=== PATIENT | female | born 1965 | race Caucasian/White ===

== ENCOUNTER 2019-12-07 18:43 | Emergency (ER) | payer MEDICARE, MEDICAID ==
[2019-12-07] MEDS ORDERED: Sodium Chloride 0.9% 10 ML Syringe FLUSH PRN (19:29)
[2019-12-07] MEDS ORDERED: Sodium Chloride 0.9% 1,000 ML IV SCH (19:30)
[2019-12-07] MEDS ORDERED: Metoclopramide 10 MG/2 ML SDV IVPUSH ONE (19:31)
[2019-12-07] MEDS ORDERED: Meperidine PF 50 MG/ML Syringe IVPUSH ONE (19:33)
[2019-12-07] MEDS ORDERED: hydrOXYzine HCl 50 MG/ML SDV IM ONE (19:59)
--- NOTE | 2019-12-07 20:45 | EDM.PDOC ---
ED HPI GENERAL MEDICAL PROBLEM - General Chief Complaint: Headache Stated Complaint: MIGRAINE Time Seen by Provider: 12/07/19 19:05 Source of Information: Reports: Patient History Limitations: Reports: No Limitations - History of Present Illness INITIAL COMMENTS - FREE TEXT/NARRATIVE: Patient presented to the ED because of headache for 6 days which is throbbing behind her eyeball and yarsanism bilaterally. the pain is 9/10, and c/o nausea and vomiting. She did take her OTC medicines without any relief. There is no associated fever or stiff neck. Parietal Pain Score (Numeric/FACES): 7 ED ROS GENERAL - Review of Systems Review Of Systems: See Below Constitutional: Reports: No Symptoms HEENT: Reports: No Symptoms Respiratory: Reports: No Symptoms Cardiovascular: Reports: No Symptoms Endocrine: Reports: No Symptoms GI/Abdominal: Reports: No Symptoms : Reports: No Symptoms Musculoskeletal: Reports: No Symptoms Skin: Reports: No Symptoms Neurological: Reports: Headache Psychiatric: Reports: No Symptoms - Physical Exam Exam: See Below Exam Limited By: No Limitations General Appearance: Alert, No Apparent Distress Ears: Normal External Exam, Normal Canal Nose: Normal Inspection, Normal Mucosa Throat/Mouth: Normal Inspection, Normal Lips, Normal Teeth Head Exam: Atraumatic, Normocephalic Neck: Normal Inspection, Supple, Non-Tender, Full Range of Motion Respiratory/Chest: No Respiratory Distress, Lungs Clear, Normal Breath Sounds Cardiovascular: Normal Peripheral Pulses, Regular Rate, Rhythm, No Edema, No Gallop GI/Abdominal: Normal Bowel Sounds, Soft, Non-Tender, No Organomegaly Rectal (Female) Exam: Normal Exam, Normal Rectal Tone Back Exam: Normal Inspection, Full Range of Motion Extremities: Normal Inspection, Normal Range of Motion, Non-Tender Psychiatric: Normal Affect, Normal Mood Skin Exam: Warm Course - Vital Signs Text/Narrative:: NS 1 L bolus Reglan 10 mg IV x1 Vistaril 50 mg IM x1 Demerol 50 mg IV x1 Last Recorded V/S: Last Vital Signs Temp 36.8 C 12/07/19 21:38 Pulse 91 12/07/19 21:38 Resp 18 12/07/19 21:38 BP 125/78 12/07/19 21:38 Pulse Ox 100 12/07/19 21:38 - Orders/Labs/Meds Orders: Active Orders 24 hr Category Date Time Status Saline Lock Insert [OM.PC] Routine Oth 12/07/19 19:29 Ordered Labs: Laboratory Tests 12/07/19 12/07/19 Range/Units 19:59 19:59 WBC 9.3 (4.5-12.0) X10-3/uL RBC 5.28 H (3.23-5.20) x10(6)uL Hgb 15.8 H (11.5-15.5) g/dL Hct 46.1 (30.0-51.3) % MCV 87.4 (80-96) fL MCH 30.0 (27.7-33.6) pg MCHC 34.2 (32.2-35.4) g/dL RDW 13.1 (11.5-15.5) % Plt Count 210 (125-369) X10(3)uL MPV 8.2 (7.4-10.4) fL Neut % (Auto) 68.1 (46-82) % Lymph % (Auto) 24.0 (13-37) % Will % (Auto) 6.6 (4-12) % Eos % (Auto) 1 (1.0-5.0) % Baso % (Auto) 1 (0-2) % Neut # (Auto) 6.4 (1.6-8.3) # Lymph # (Auto) 2.2 (0.6-5.0) # Will # (Auto) 0.6 (0.0-1.3) # Eos # (Auto) 0.0 (0.0-0.8) # Baso # (Auto) 0.1 (0.0-0.2) # Sodium 142 (135-145) mmol/L Potassium 4.1 (3.5-5.3) mmol/L Chloride 104 (100-110) mmol/L Carbon Dioxide 30 (21-32) mmol/L BUN 16 (7-18) mg/dL Creatinine 1.0 (0.55-1.02) mg/dL Est Cr Clr Drug Dosing TNP Estimated GFR (MDRD) 57 L (>60) BUN/Creatinine Ratio 16.0 (9-20) Glucose 98 (80-116) mg/dL Calcium 8.8 (8.6-10.2) mg/dL Meds: Medications Discontinued Medications Generic Name Dose Route Start Last Admin Trade Name Freq PRN Reason Stop Dose Admin Hydroxyzine HCl 50 mg 12/07/19 19:59 12/07/19 20:23 Vistaril IM 12/07/19 20:00 50 mg ONETIME ONE Administration Sodium Chloride 1,000 mls @ 999 mls/hr 12/07/19 19:30 12/07/19 20:22 Normal Saline IV 999 mls/hr ASDIRECTED MINISTERIO Administration Meperidine HCl 50 mg 12/07/19 19:33 12/07/19 20:22 Demerol IVPUSH 12/07/19 19:34 50 mg ONETIME ONE Administration Metoclopramide HCl 10 mg 12/07/19 19:31 12/07/19 20:22 Reglan IVPUSH 12/07/19 19:32 10 mg ONETIME ONE Administration Sodium Chloride 10 ml 12/07/19 19:29 12/07/19 20:27 Saline Flush FLUSH 10 ml ASDIRECTED PRN Administration Keep Vein Open Departure - Departure Time of Disposition: 20:45 Disposition: Home, Self-Care 01 Condition: Good Clinical Impression: Migraine - Discharge Information Instructions: Migraine Headache, [id number] Referrals: Karo Arguello NP [Primary Care Provider] - Forms: ED Department Discharge Additional Instructions: please read discahrge instructions on migraine continue your present medications follow up as needed Sepsis Event Note - Evaluation Sepsis Screening Result: No Definite Risk - Focused Exam Date Exam was Performed: 12/08/19 Time Exam was Performed: 17:29 - My Orders Last 24 Hours: My Active Orders 12/07/19 19:29 Saline Lock Insert [OM.PC] Routine - Assessment/Plan Last 24 Hours: My Active Orders 12/07/19 19:29 Saline Lock Insert [OM.PC] Routine
== END 2019-12-07 21:40 | disposition home or self-care (01) ==
LOC: FB.ED 18:43
DX: G43.909 Migraine, unspecified, not intractable, without status migrainosus (principal)
CPT/HCPCS: 36415; 80048; 85025; 96361; 96372; 96374; 96375; 99284; J2175; J2765; J3410; J7030

== ENCOUNTER 2019-12-21 21:57 | Emergency (ER) | payer MEDICARE, MEDICAID ==
[2019-12-21] MEDS ORDERED: Sodium Chloride 0.9% 10 ML Syringe FLUSH PRN (22:47)
[2019-12-21] MEDS ORDERED: Ondansetron 4 MG/2 ML SDV IVPUSH ONE (22:51)
[2019-12-21] MEDS ORDERED: HYDROmorphone 2 MG/ML SDV IVPUSH ONE (22:51)
[2019-12-21] MEDS ORDERED: Sodium Chloride 0.9% 1,000 ML IV SCH (23:00)
[2019-12-21] MEDS ORDERED: Iopamidol 755 Mg/ML 100 ML Bottle IV ONE (23:26)
[2019-12-22] MEDS ORDERED: hydrOXYzine HCl 50 MG/ML SDV IM ONE (00:13)
[2019-12-22] MEDS: Metoclopramide 10 MG/2 ML SDV IVPUSH ONE ×2 (00:13→00:14)
--- NOTE | 2019-12-22 01:16 | EDM.PDOC ---
ED HPI GENERAL MEDICAL PROBLEM - General Chief Complaint: Abdominal Pain Stated Complaint: PAIN Time Seen by Provider: 12/21/19 22:00 Source of Information: Reports: Patient History Limitations: Reports: No Limitations - History of Present Illness INITIAL COMMENTS - FREE TEXT/NARRATIVE: Patient presented to the ED because of abdominal pain over the RLQ and RUQ which started at 1430 today. The pain is sharp and cramping,10/10, with asso.ciated nausea but no vomiting. There is no associated fever,chills, or cough and cold symptoms R upper abdomen radiating into back & epigastric area Pain Score (Numeric/FACES): 10 - Related Data Allergies Allergy/AdvReac Type Severity Reaction Status Date / Time aspirin Allergy Airway Verified 12/21/19 22:10 Tightness codeine Allergy Airway Verified 12/21/19 22:10 Tightness methadone Allergy Hallucinati Verified 12/21/19 22:10 ons morphine Allergy Airway Verified 12/21/19 22:10 Tightness NSAIDS (Non-Steroidal Allergy Airway Verified 12/21/19 22:10 Anti-Inflamma Tightness Penicillins Allergy Airway Verified 12/21/19 22:10 Tightness theophylline Allergy Nausea Verified 12/21/19 22:10 Home Meds: Home Meds ALPRAZolam [Alprazolam] 0.5 mg TID 12/21/19 [History] Chlorhexidine Gluconate 15 ml BID 12/21/19 [History] FLUoxetine HCl [Prozac] 20 mg PO DAILY 12/21/19 [History] Furosemide [Lasix] 40 mg PO BID 12/21/19 [History] Gabapentin [Neurontin] 600 mg PO TID 12/21/19 [History] Linaclotide [Linzess] 173 mcg DAILY 12/21/19 [History] Omeprazole Magnesium [Prilosec Otc] 20 mg PO DAILY 12/21/19 [History] Ondansetron [Zofran ODT] 4 mg BID PRN 12/21/19 [History] Rivaroxaban [Xarelto] 20 mg BEDTIME 12/21/19 [History] Varenicline [Chantix] 1 mg PO BIDPC 12/21/19 [History] atorvaSTATin [Lipitor] 20 mg PO BEDTIME 12/21/19 [History] buPROPion HCL [Wellbutrin Xl] 150 mg PO DAILY 12/21/19 [History] traZODone 200 mg PO BEDTIME 12/21/19 [History] Past Medical History Cardiovascular History: Reports: Blood Clots/VTE/DVT, Hypertension Respiratory History: Reports: Asthma, Bronchitis, Recurrent, COPD, PE, Sleep Apnea Other Respiratory History: Uses O2 3L/NC when sitting up, 4L/NC when lying down. Does not use CPAP/bipap. Gastrointestinal History: Reports: Cholelithiasis, Chronic Constipation, GERD WILLOW ANALYST History: Reports: Endometrial Ablation, Endometriosis, Other WILLOW ANALYST History: [id number] Musculoskeletal History: Reports: Arthritis, Back Pain, Chronic, Fracture, Fibromyalgia, Neck Pain, Chronic, Osteoarthritis, Other (See Below) Other Musculoskeletal History: Hx bilat wrist fx, fx arm, DJD, R ankle fx Neurological History: Reports: Migraines Psychiatric History: Reports: Anxiety, Bipolar, Depression, PTSD, Schizophrenia , Suicidal Ideation, Other (See Below) Other Psychiatric History: borderline personality disorder, hx cutting Endocrine/Metabolic History: Reports: Obesity/BMI 30+ Hematologic History: Reports: Blood Transfusion(s) - Infectious Disease History Infectious Disease History: Reports: Chicken Pox, Measles, Mumps, Shingles - Past Surgical History HEENT Surgical History: Reports: Oral Surgery GI Surgical History: Reports: Bariatric Procedure, Cholecystectomy, Colonoscopy , EGD Other GI Surgeries/Procedures: gastric sleeve 2013 Female Surgical History: Reports: Section Other Female Surgeries/Procedures: CS x 1 Musculoskeletal Surgical History: Reports: Knee Replacement, ORIF Other Musculoskeletal Surgeries/Procedures:: bilat partial knee replacements, R ankle surgery Social & Family History - Family History Family Medical History: Noncontributory - Tobacco Use Smoking Status *Q: Former Smoker Years of Tobacco use: 30 Used Tobacco, but Quit: Yes Month/Year Tobacco Last Used: 2019 - Caffeine Use Caffeine Use: Reports: Coffee, Tea - Recreational Drug Use Recreational Drug Use: Yes Recreational Drug Type: Reports: Methamphetamine Other Recreational Drug Type: Hx meth abuse, quit 16yrs ago. Recreational Drug Use Frequency: Not Used In Over 6 Months ED ROS GENERAL - Review of Systems Review Of Systems: See Below Constitutional: Reports: No Symptoms HEENT: Reports: No Symptoms Respiratory: Reports: No Symptoms Cardiovascular: Reports: No Symptoms Endocrine: Reports: No Symptoms GI/Abdominal: Reports: Abdominal Pain, Constipation, Nausea. Denies: Vomiting : Reports: No Symptoms Musculoskeletal: Reports: No Symptoms Skin: Reports: No Symptoms Neurological: Reports: No Symptoms Psychiatric: Reports: No Symptoms ED EXAM, GI/ABD - Physical Exam Exam: See Below Exam Limited By: No Limitations General Appearance: Alert, No Apparent Distress Ears: Normal External Exam, Normal Canal Nose: Normal Inspection, Normal Mucosa Throat/Mouth: Normal Inspection, Normal Lips Head: Atraumatic, Normocephalic Neck: Normal Inspection, Supple, Non-Tender Respiratory/Chest: No Respiratory Distress, Lungs Clear, Normal Breath Sounds Cardiovascular: Normal Peripheral Pulses, Regular Rate, Rhythm, No Edema, No Gallop GI/Abdominal Exam: Normal Bowel Sounds, Soft, Other (tendeness over the RLQ/RUQ) Back Exam: Normal Inspection, Full Range of Motion. No: CVA Tenderness (R) Course - Vital Signs Text/Narrative:: Labs/CT abd/pelvis was discussed with patient and verbalized full understanding NS 1 L bolus Zofran 4 mg IV x1 Vistaril 50 mg IM x [address] Jj Jordan Recorded V/S: Last Vital Signs Temp 36.7 C 12/21/19 21:57 Pulse 77 12/21/19 21:57 Resp 20 12/21/19 21:57 BP 124/91 H 12/21/19 21:57 Pulse Ox 99 12/21/19 21:57 - Orders/Labs/Meds Orders: Active Orders 24 hr Category Date Time Status Abdomen Pelvis w Cont [CT] Stat Exams 12/21/19 22:47 Taken UA W/MICROSCOPIC [URIN] Stat Lab 12/21/19 22:47 Ordered Sodium Chloride 0.9% [Normal Saline] 1,000 ml Med 12/21/19 23:00 Active IV ASDIRECTED Sodium Chloride 0.9% [Saline Flush] Med 12/21/19 22:47 Active 10 ml FLUSH ASDIRECTED PRN Saline Lock Insert [OM.PC] Routine Oth 12/21/19 22:47 Ordered Medication Orders Sodium Chloride (Normal Saline) 1,000 mls @ 999 mls/hr IV ASDIRECTED MINISTERIO Last Admin: 12/21/19 23:25 Dose: 999 mls/hr Sodium Chloride (Saline Flush) 10 ml FLUSH ASDIRECTED PRN PRN Reason: Keep Vein Open Last Admin: 12/21/19 23:00 Dose: 10 ml Labs: Laboratory Tests 12/21/19 12/21/19 12/21/19 Range/Units 23:00 23:00 23:00 WBC 10.7 (4.5-12.0) X10-3/uL RBC 5.27 H (3.23-5.20) x10(6)uL Hgb 15.9 H (11.5-15.5) g/dL Hct 46.4 (30.0-51.3) % MCV 88.1 (80-96) fL MCH 30.3 (27.7-33.6) pg MCHC 34.3 (32.2-35.4) g/dL RDW 13.4 (11.5-15.5) % Plt Count 196 (125-369) X10(3)uL MPV 9.0 (7.4-10.4) fL Neut % (Auto) 78.4 (46-82) % Lymph % (Auto) 13.7 (13-37) % [place] % (Auto) 5.8 (4-12) % Eos % (Auto) 0 L (1.0-5.0) % Baso % (Auto) 2 (0-2) % Neut # (Auto) 8.4 H (1.6-8.3) # Lymph # (Auto) 1.5 (0.6-5.0) # [place] # (Auto) 0.6 (0.0-1.3) # Eos # (Auto) 0.0 (0.0-0.8) # Baso # (Auto) 0.2 (0.0-0.2) # Sodium 141 (135-145) mmol/L Potassium 4.6 (3.5-5.3) mmol/L Chloride 103 (100-110) mmol/L Carbon Dioxide 29 (21-32) mmol/L BUN 12 (7-18) mg/dL Creatinine 0.9 (0.55-1.02) mg/dL Est Cr Clr Drug Dosing 72.94 mL/min Estimated GFR (MDRD) > 60 (>60) BUN/Creatinine Ratio 13.3 (9-20) Glucose 117 H (80-116) mg/dL Calcium 9.4 (8.6-10.2) mg/dL Total Bilirubin 0.5 (0.1-1.3) mg/dL AST 29 H (5-25) IU/L ALT 24 (12-36) U/L Alkaline Phosphatase 104 (56-112) IU/L Total Protein 7.7 (6.0-8.0) g/dL Albumin 3.7 (3.5-5.2) g/dL Globulin 4.0 g/dL Albumin/Globulin Ratio 0.9 Amylase 35 (25-115) U/L Lipase 83 (73-393) U/L Meds: Medications Generic Name Dose Route Start Last Admin Trade Name Freq PRN Reason Stop Dose Admin Sodium Chloride 1,000 mls @ 999 mls/hr 12/21/19 23:00 12/21/19 23:25 Normal Saline IV 999 mls/hr ASDIRECTED MINISTERIO Administration Sodium Chloride 10 ml 12/21/19 22:47 12/21/19 23:00 Saline Flush FLUSH 10 ml ASDIRECTED PRN Administration Keep Vein Open Discontinued Medications Generic Name Dose Route Start Last Admin Trade Name Freq PRN Reason Stop Dose Admin Hydromorphone HCl 2 mg 12/21/19 22:51 12/21/19 23:28 Dilaudid IVPUSH 12/21/19 22:52 2 mg ONETIME ONE Administration Hydroxyzine HCl 50 mg 12/22/19 00:13 12/22/19 00:22 Vistaril IM 12/22/19 00:14 50 mg ONETIME ONE Administration Iopamidol 100 ml 12/21/19 23:26 12/21/19 23:46 Isovue-370 (76%) IV 12/21/19 23:27 100 ml ONETIME ONE Administration Metoclopramide HCl 10 mg 12/21/19 23:58 12/22/19 00:14 Reglan IVPUSH 12/21/19 23:59 Not Given ONETIME ONE Ondansetron HCl 4 mg 12/21/19 22:51 12/21/19 23:25 Zofran IVPUSH 12/21/19 22:52 4 mg ONETIME ONE Administration Departure - Departure Time of Disposition: :20 Disposition: DC/Tfer to Acute Hospital 02 Condition: Good Clinical Impression: Acute appendicitis, Constipation - Discharge Information Referrals: Karo Arguello NP [Primary Care Provider] - Sepsis Event Note - Evaluation Sepsis Screening Result: No Definite Risk - Focused Exam Vital Signs: Vital Signs Temp Pulse Resp BP Pulse Ox 12/21/19 21:57 36.7 C 77 20 124/91 H 99 Date Exam was Performed: 12/22/19 Time Exam was Performed: 01:11 - My Orders Last 24 Hours: My Active Orders 12/21/19 22:47 Abdomen Pelvis w Cont [CT] Stat UA W/MICROSCOPIC [URIN] Stat Sodium Chloride 0.9% [Saline Flush] 10 ml FLUSH ASDIRECTED PRN Saline Lock Insert [OM.PC] Routine 12/21/19 23:00 Sodium Chloride 0.9% [Normal Saline] 1,000 ml IV ASDIRECTED - Assessment/Plan Last 24 Hours: My Active Orders 12/21/19 22:47 Abdomen Pelvis w Cont [CT] Stat UA W/MICROSCOPIC [URIN] Stat Sodium Chloride 0.9% [Saline Flush] 10 ml FLUSH ASDIRECTED PRN Saline Lock Insert [OM.PC] Routine 12/21/19 23:00 Sodium Chloride 0.9% [Normal Saline] 1,000 ml IV ASDIRECTED
[2019-12-22] MEDS ORDERED: HYDROmorphone 2 MG/ML SDV IVPUSH ONE (01:44)
[2019-12-22] MEDS ORDERED: Sodium Chloride 0.9% 1,000 ML IV ONE (01:48)
== END 2019-12-22 02:24 ==
LOC: FB.ED 21:57
DX: K35.80 Unspecified acute appendicitis (principal); K59.00 Constipation, unspecified; J44.9 Chronic obstructive pulmonary disease, unspecified; K21.9 Gastro-esophageal reflux disease without esophagitis; F31.9 Bipolar disorder, unspecified; F41.9 Anxiety disorder, unspecified; F20.9 Schizophrenia, unspecified; E66.9 Obesity, unspecified; Z68.43 Body mass index [BMI] 50.0-59.9, adult; Z88.6 Allergy status to analgesic agent; Z88.5 Allergy status to narcotic agent; Z88.0 Allergy status to penicillin; Z88.8 Allergy status to other drugs, medicaments and biological substances; Z86.711 Personal history of pulmonary embolism; Z79.01 Long term (current) use of anticoagulants; Z79.899 Other long term (current) drug therapy; Z87.891 Personal history of nicotine dependence
CPT/HCPCS: 36415; 74177; 80053; 81001; 82150; 83690; 85025; 96372; 96374; 96375; 96376; 99285-25; J1170; J2405; J3410; J7030; Q9967

== ENCOUNTER 2020-04-04 12:03 | Inpatient (IN) | payer MEDICARE, MEDICAID ==
[2020-04-04] MEDS ORDERED: Ondansetron 4 MG Tab.DIS PO PRN (13:37)
[2020-04-04] MEDS ORDERED: Albuterol/Ipratropium 3.0-0.5 MG/3 ML Neb Soln NEB PRN ×2 (13:48→14:31)
[2020-04-04] MEDS ORDERED: oxyCODONE 5 MG Tab PO PRN (13:48)
[2020-04-04] MEDS ORDERED: Albuterol 8 GM Inhaler INH PRN ×2 (13:50→14:31)
[2020-04-04] MEDS ORDERED: LORazepam 0.5 MG Tab PO PRN (13:51)
[2020-04-04] MEDS ORDERED: Gabapentin 300 MG Cap PO SCH (14:00)
[2020-04-04] MEDS: HYDROmorphone 2 MG Tab PO PRN ×2 (15:21→21:44)
--- NOTE | 2020-04-04 16:32 | HP ---
ADMISSION DATE: 04/04/2020 CHIEF COMPLAINT: Admission for rehab post right Achilles tendon rupture and repair. HISTORY OF PRESENT ILLNESS: Ms. Storey is a 54-year-old resident of [place], [place], who had a traumatic fracture of her right ankle foot in 2006 with ORIF including lateral plate and screws and medial screws. She subsequently had the lateral hardware removed, the plate and screws removed laterally, but the medial screws remained in. Her Achilles lengthening procedure apparently failed and she has had a rupture which she recently had repaired now. She was discharged from acute care and is admitted to swing bed at [facility] today for recuperation from her Achilles tendon repair. The patient states she was told she needs to be nonweightbearing on the right lower extremity for 4 to 6 weeks. PAST MEDICAL HISTORY: Extensive includes the ankle fracture ORIF and current ankle procedures as above. She also states she is status post bilateral partial knee arthroplasties, , 3 and para 3 with 2 normal deliveries, cholecystectomy, endometrial ablation procedure, gastric sleeve procedure. She states she developed DVT and PE in 2010 after a gastric sleeve procedure. She also had blood transfusions during that time. She states she is on lifelong anticoagulation now. She has no history of jaundice or hepatitis. She does have a recorded history of bipolar affective disorder, chronic long-standing asthma since childhood, COPD, hyperlipidemia, obesity, anxiety, depression, migraines, GERD, and chronic constipation. MEDICATIONS: See list, extensive and gone through carefully with the pharmacist today. ALLERGIES: Include aspirin, codeine, methadone, morphine, NSAIDs, penicillin, theophylline. She also states that oxycodone has caused her bumps and a cough. HABITS: 2 to 3 cigarettes per day on the average. No alcohol for 14 years. She says she was a meth user and has been free of meth for 16 years. REVIEW OF SYSTEMS: GENERAL: No seizures, syncope. HEENT: No recent change in hearing or vision, although she does report a plugged feeling in her ears. No sore throat, URI. CHEST: She has a chronic cough and wheezing from her asthma. No chest pain or palpitations. ABDOMEN: No abdominal pain. EXTREMITIES: No chronic ankle edema. No skin rash. PHYSICAL EXAMINATION: GENERAL: She is alert and currently comfortable sitting. She has a bulky dressing in place in the right lower extremity. VITAL SIGNS: Pending. SKIN: Anicteric. Warm and dry. Right lower extremity not unwrapped, but no other rash is noted. HEENT: Shows TMs to be clear. Pupils are equal and reactive. Oropharynx is clear. LUNGS: Clear to the bases with no wheezing. HEART: Regular without murmur or gallop. ABDOMEN: Obese, soft, nontender. EXTREMITIES: Show the wrap in the right lower extremity. She has slightly dusky but pink toes peaking out from her JOSELO wrap on the right lower extremity and good dorsalis pedis pulse on the left lower extremity. ASSESSMENT: 1. Postop right Achilles tendon rupture repair. 2. Extensive polypharmacy. 3. Asthma. 4. History of deep venous thrombosis and pulmonary embolism, on lifelong anticoagulation. 5. Schizoaffective disorder. 6. Chronic constipation. 7. Obesity, status post failed gastric sleeve. 8. Migraine disorder. 9. Hyperlipidemia. 10.Cigarette smoker. PLAN: We will enroll her in rehab and strengthening, and if she is able to ambulate with a walker and nonweightbearing right lower extremity as requested, she will be discharged to her home again. /[id number] ANDRE/KINSEY
[2020-04-04] MEDS: Acetaminophen 500 MG Tab PO PRN (19:40)
[2020-04-04] MEDS ORDERED: Famotidine 20 MG Tab PO SCH (21:00)
[2020-04-04] MEDS ORDERED: Chlorhexidine Gluconate 0.12% Oral Rinse 473 ML Bottle PO SCH (21:00)
[2020-04-04] MEDS ORDERED: BUSPIRONE HCL 30 MG PO SCH (21:00)
[2020-04-04] MEDS ORDERED: Diltiazem 120 MG Cap.CD PO SCH (21:00)
[2020-04-04] MEDS: OXcarbazepine 300 MG Tab PO SCH (21:02)
[2020-04-04] MEDS: traZODone 100 MG Tab PO SCH (21:02)
[2020-04-04] MEDS: Diltiazem 120 MG Cap.CD PO SCH (21:02)
[2020-04-04] MEDS: QUEtiapine 100 MG Tab PO SCH (21:02)
[2020-04-04] MEDS: busPIRone 15 MG Tab PO SCH (21:03)
[2020-04-04] MEDS: buPROPion 150 MG Tab.ER PO SCH (21:03)
[2020-04-04] MEDS: Potassium Chloride 10 MEQ Tab.ER PO SCH (21:03)
[2020-04-04] MEDS: atorvaSTATin 20 MG Tab PO SCH (21:04)
[2020-04-04] MEDS: Famotidine 20 MG Tab PO SCH (21:04)
[2020-04-04] MEDS: hydrOXYzine HCl 25 MG Tab PO PRN (21:04)
[2020-04-04] MEDS: Gabapentin 600 MG Tab PO SCH (21:04)
[2020-04-05] MEDS: HYDROmorphone 2 MG Tab PO PRN ×3 (07:29→19:53)
[2020-04-05] MEDS: Acetaminophen 500 MG Tab PO PRN ×3 (07:35→19:54)
[2020-04-05] MEDS: Furosemide 40 MG Tab PO SCH ×2 (07:36→14:52)
[2020-04-05] MEDS ORDERED: Non-Formulary Medication 1 Each (Omeprazole Magnesium [Prilosec Otc] 20 MG) PO SCH (09:00)
[2020-04-05] MEDS ORDERED: LINACLOTIDE PO SCH (09:00)
[2020-04-05] MEDS: busPIRone 15 MG Tab PO SCH ×2 (10:42→21:16)
[2020-04-05] MEDS: Loratadine 10 MG Tab PO SCH (10:43)
[2020-04-05] MEDS: Famotidine 20 MG Tab PO SCH ×2 (10:43→21:17)
[2020-04-05] MEDS: Gabapentin 600 MG Tab PO SCH ×3 (10:43→21:21)
[2020-04-05] MEDS: Potassium Chloride 10 MEQ Tab.ER PO SCH ×2 (10:43→21:16)
[2020-04-05] MEDS: ALPRAZolam 1 MG Tab PO SCH (10:44)
[2020-04-05] MEDS: FLUoxetine 20 MG Cap PO SCH (10:44)
[2020-04-05] MEDS: Diclofenac Sodium 1% Gel 100 GM Tube TOP SCH ×2 (10:49→21:19)
[2020-04-05] MEDS: buPROPion 150 MG Tab.ER PO SCH (21:16)
[2020-04-05] MEDS: OXcarbazepine 300 MG Tab PO SCH (21:16)
[2020-04-05] MEDS: Diltiazem 120 MG Cap.CD PO SCH (21:17)
[2020-04-05] MEDS: traZODone 100 MG Tab PO SCH (21:17)
[2020-04-05] MEDS: QUEtiapine 100 MG Tab PO SCH (21:17)
[2020-04-05] MEDS: atorvaSTATin 20 MG Tab PO SCH (21:19)
[2020-04-06] MEDS: busPIRone 15 MG Tab PO SCH ×2 (08:09→21:07)
[2020-04-06] MEDS: Potassium Chloride 10 MEQ Tab.ER PO SCH ×2 (08:10→21:07)
[2020-04-06] MEDS: Loratadine 10 MG Tab PO SCH (08:10)
[2020-04-06] MEDS: Famotidine 20 MG Tab PO SCH ×2 (08:11→21:09)
[2020-04-06] MEDS: FLUoxetine 20 MG Cap PO SCH (08:12)
[2020-04-06] MEDS: Diclofenac Sodium 1% Gel 100 GM Tube TOP SCH ×2 (08:13→21:09)
[2020-04-06] MEDS: ALPRAZolam 1 MG Tab PO SCH (08:17)
[2020-04-06] MEDS: Gabapentin 600 MG Tab PO SCH ×3 (08:17→21:07)
[2020-04-06] MEDS: Furosemide 40 MG Tab PO SCH ×2 (08:18→13:36)
[2020-04-06] MEDS: Acetaminophen 500 MG Tab PO PRN ×2 (12:18→21:22)
[2020-04-06] MEDS: HYDROmorphone 2 MG Tab PO PRN ×2 (12:19→18:32)
[2020-04-06] MEDS: hydrOXYzine HCl 25 MG Tab PO PRN (16:24)
[2020-04-06] MEDS: OXcarbazepine 300 MG Tab PO SCH (21:06)
[2020-04-06] MEDS: QUEtiapine 100 MG Tab PO SCH (21:07)
[2020-04-06] MEDS: atorvaSTATin 20 MG Tab PO SCH (21:07)
[2020-04-06] MEDS: traZODone 100 MG Tab PO SCH (21:07)
[2020-04-06] MEDS: buPROPion 150 MG Tab.ER PO SCH (21:07)
[2020-04-06] MEDS: Diltiazem 120 MG Cap.CD PO SCH (21:08)
[2020-04-06] MEDS: Formoterol/Mometasone 100-5 MCG 8.8 GM Inhaler IH SCH (21:09)
[2020-04-07] MEDS: HYDROmorphone 2 MG Tab PO PRN ×4 (01:59→20:38)
[2020-04-07] MEDS: busPIRone 15 MG Tab PO SCH ×2 (09:14→20:35)
[2020-04-07] MEDS: Furosemide 40 MG Tab PO SCH ×2 (09:14→13:19)
[2020-04-07] MEDS: Loratadine 10 MG Tab PO SCH (09:15)
[2020-04-07] MEDS: Formoterol/Mometasone 100-5 MCG 8.8 GM Inhaler IH SCH ×2 (09:15→20:46)
[2020-04-07] MEDS: Potassium Chloride 10 MEQ Tab.ER PO SCH ×2 (09:15→20:47)
[2020-04-07] MEDS: FLUoxetine 20 MG Cap PO SCH (09:18)
[2020-04-07] MEDS: Gabapentin 600 MG Tab PO SCH ×3 (09:18→20:38)
[2020-04-07] MEDS: Famotidine 20 MG Tab PO SCH ×2 (09:18→20:37)
[2020-04-07] MEDS: Diclofenac Sodium 1% Gel 100 GM Tube TOP SCH ×2 (09:19→20:41)
[2020-04-07] MEDS: ALPRAZolam 1 MG Tab PO SCH (09:36)
[2020-04-07] MEDS: Acetaminophen 500 MG Tab PO SCH ×2 (13:20→20:37)
--- NOTE | 2020-04-07 18:32 | PN ---
DATE SEEN: 04/07/2020 SUBJECTIVE: Alvina Storey is a 54-year-old female in swing bed. Therapy on board. Admitted, 04/04/2020. She had a complicated left ankle injury dating back 2006, and a more recent surgical repair of her Achilles tendon. Pain an issue. Pre therapy, post therapy. Allergies are discussed and appropriate. Extremity of concern, right extremity. Reviewed the medications, timing appropriate. OBJECTIVE: VITAL SIGNS: 36.7, 75, 125/82, 20, 93. GENERAL: Appears comfortable. Speech was fluent and a bit forced. NECK: Benign. Thyroid small. CHEST: Clear in all lung prieto. HEART: No ectopy or murmur. ABDOMEN: Benign. EXTREMITIES: Right lower extremity revealed a posterior splint with large dressing in place. ASSESSMENT: Achilles tendon repair. PLAN: We will add Tylenol 1000 mg t.i.d., Dilaudid 2 to 4 q.6 hours, pain control an issue. Therapy on board. /[id number] YOKASTA/KINSEY
[2020-04-07] MEDS: traZODone 100 MG Tab PO SCH (20:36)
[2020-04-07] MEDS: buPROPion 150 MG Tab.ER PO SCH (20:40)
[2020-04-07] MEDS: QUEtiapine 100 MG Tab PO SCH (20:45)
[2020-04-07] MEDS: atorvaSTATin 20 MG Tab PO SCH (20:46)
[2020-04-07] MEDS: OXcarbazepine 300 MG Tab PO SCH (20:48)
[2020-04-07] MEDS: Diltiazem 120 MG Cap.CD PO SCH (20:49)
[2020-04-08] MEDS: Formoterol/Mometasone 100-5 MCG 8.8 GM Inhaler IH SCH ×2 (08:54→20:01)
[2020-04-08] MEDS: Furosemide 40 MG Tab PO SCH ×2 (08:57→14:25)
[2020-04-08] MEDS: busPIRone 15 MG Tab PO SCH ×2 (08:57→19:59)
[2020-04-08] MEDS: Loratadine 10 MG Tab PO SCH (08:58)
[2020-04-08] MEDS: Potassium Chloride 10 MEQ Tab.ER PO SCH ×2 (08:58→20:01)
[2020-04-08] MEDS: Famotidine 20 MG Tab PO SCH ×2 (08:58→20:02)
[2020-04-08] MEDS: Acetaminophen 500 MG Tab PO SCH ×3 (08:59→20:04)
[2020-04-08] MEDS: FLUoxetine 20 MG Cap PO SCH (08:59)
[2020-04-08] MEDS: Diclofenac Sodium 1% Gel 100 GM Tube TOP SCH ×2 (08:59→20:04)
[2020-04-08] MEDS: Gabapentin 600 MG Tab PO SCH ×3 (09:05→20:02)
[2020-04-08] MEDS: HYDROmorphone 2 MG Tab PO PRN ×3 (09:05→21:45)
[2020-04-08] MEDS: ALPRAZolam 1 MG Tab PO SCH (09:05)
[2020-04-08] MEDS: atorvaSTATin 20 MG Tab PO SCH (20:01)
[2020-04-08] MEDS: traZODone 100 MG Tab PO SCH (20:03)
[2020-04-08] MEDS: QUEtiapine 100 MG Tab PO SCH (20:03)
[2020-04-08] MEDS: OXcarbazepine 300 MG Tab PO SCH (20:04)
[2020-04-08] MEDS: buPROPion 150 MG Tab.ER PO SCH (20:05)
[2020-04-08] MEDS: Diltiazem 120 MG Cap.CD PO SCH (20:06)
[2020-04-09] MEDS: Furosemide 40 MG Tab PO SCH ×2 (09:32→13:56)
[2020-04-09] MEDS: busPIRone 15 MG Tab PO SCH ×2 (09:32→20:57)
[2020-04-09] MEDS: Loratadine 10 MG Tab PO SCH (09:33)
[2020-04-09] MEDS: Formoterol/Mometasone 100-5 MCG 8.8 GM Inhaler IH SCH ×2 (09:34→20:51)
[2020-04-09] MEDS: Potassium Chloride 10 MEQ Tab.ER PO SCH ×2 (09:34→20:55)
[2020-04-09] MEDS: Famotidine 20 MG Tab PO SCH ×2 (09:35→20:56)
[2020-04-09] MEDS: FLUoxetine 20 MG Cap PO SCH (09:35)
[2020-04-09] MEDS: Acetaminophen 500 MG Tab PO SCH ×3 (09:36→20:56)
[2020-04-09] MEDS: Diclofenac Sodium 1% Gel 100 GM Tube TOP SCH ×2 (09:36→20:52)
[2020-04-09] MEDS: Gabapentin 600 MG Tab PO SCH ×3 (09:42→20:54)
[2020-04-09] MEDS: ALPRAZolam 1 MG Tab PO SCH (09:43)
[2020-04-09] MEDS: hydrOXYzine HCl 25 MG Tab PO PRN (11:00)
[2020-04-09] MEDS: HYDROmorphone 2 MG Tab PO PRN ×3 (11:02→22:53)
--- NOTE | 2020-04-09 12:40 | PN ---
DATE SEEN: 04/08/2020 SUBJECTIVE: Alvina Storey is a 54-year-old female in swing bed. Had a complicated right Achilles tendon repair. Pain appears to be better controlled at q.4 intervals. Appetite returns. Stooling and voiding comfortably. OBJECTIVE: VITAL SIGNS: 36.2, 116/65, 16, 97% on room air. GENERAL: Comfortable. Speech was fluent. CHEST: Clear in all lung prieto. HEART: No ectopy or murmur. ABDOMEN: Benign. EXTREMITIES: The right lower leg dressing intact. Toes were warm. ASSESSMENT: Surgical repair, rehab, Achilles tendon repair. PLAN: Medications, care, and treatment appropriate. Pain medications on board. Followup appointment, Podiatry, 04/17/2020. /[id number] YOKASTA/KINSEY
--- NOTE | 2020-04-09 12:58 | PN ---
DATE SEEN: 04/09/2020 SUBJECTIVE: Alvina Storey is a 54-year-old female in swing bed. Doing well with pain control. She has been active. Comfortable with progress and well being. OBJECTIVE: VITAL SIGNS: Stable. GENERAL: Appears comfortable. EXTREMITIES: Dressing and brace in place in left lower extremity. Good warm toes. ASSESSMENT: Rehab Achilles tendon repair. PLAN: Medications, care, and pain control. Therapy in place. /[id number] YOKASTA/KINSEY
[2020-04-09] MEDS: atorvaSTATin 20 MG Tab PO SCH (20:54)
[2020-04-09] MEDS: traZODone 100 MG Tab PO SCH (20:54)
[2020-04-09] MEDS: OXcarbazepine 300 MG Tab PO SCH (20:55)
[2020-04-09] MEDS: QUEtiapine 100 MG Tab PO SCH (20:57)
[2020-04-09] MEDS: buPROPion 150 MG Tab.ER PO SCH (21:00)
[2020-04-09] MEDS: Diltiazem 120 MG Cap.CD PO SCH (21:06)
[2020-04-10] MEDS: Furosemide 40 MG Tab PO SCH ×2 (08:54→14:27)
[2020-04-10] MEDS: FLUoxetine 20 MG Cap PO SCH (09:01)
[2020-04-10] MEDS: Acetaminophen 500 MG Tab PO SCH ×3 (09:01→21:01)
[2020-04-10] MEDS: Loratadine 10 MG Tab PO SCH (09:01)
[2020-04-10] MEDS: busPIRone 15 MG Tab PO SCH ×2 (09:02→21:00)
[2020-04-10] MEDS: Potassium Chloride 10 MEQ Tab.ER PO SCH ×2 (09:02→21:00)
[2020-04-10] MEDS: Famotidine 20 MG Tab PO SCH ×2 (09:02→21:01)
[2020-04-10] MEDS: Diclofenac Sodium 1% Gel 100 GM Tube TOP SCH ×2 (09:03→21:02)
[2020-04-10] MEDS: Formoterol/Mometasone 100-5 MCG 8.8 GM Inhaler IH SCH ×2 (09:03→20:55)
[2020-04-10] MEDS: Gabapentin 600 MG Tab PO SCH ×3 (10:53→21:01)
[2020-04-10] MEDS: ALPRAZolam 1 MG Tab PO SCH (10:53)
[2020-04-10] MEDS: HYDROmorphone 2 MG Tab PO PRN ×3 (11:56→21:09)
--- NOTE | 2020-04-10 12:07 | PN ---
DATE SEEN: 04/10/2020 SUBJECTIVE: Alvina Storey is a 54-year-old female in swing bed, plan until mid-April. Complicated Achilles tendon repair. Doing well. Pain primarily with PT. Dilaudid provides reasonable benefit. MEDICATIONS: Reviewed and appropriate. OBJECTIVE: VITAL SIGNS: 36.5, 119/75, 18, and 95. GENERAL: Appears comfortable. Speech was fluent. CHEST: Clear all lung prieto. HEART: No ectopy or murmur. ABDOMEN: Benign. Wound dressed accordingly. Achilles tendon repair. PLAN: Medications, care, and treatment appropriate. /[id number] YOKASTA/KINSEY
[2020-04-10] MEDS: buPROPion 150 MG Tab.ER PO SCH (21:00)
[2020-04-10] MEDS: Diltiazem 120 MG Cap.CD PO SCH (21:00)
[2020-04-10] MEDS: QUEtiapine 100 MG Tab PO SCH (21:01)
[2020-04-10] MEDS: atorvaSTATin 20 MG Tab PO SCH (21:01)
[2020-04-10] MEDS: OXcarbazepine 300 MG Tab PO SCH (21:01)
[2020-04-10] MEDS: traZODone 100 MG Tab PO SCH (21:01)
[2020-04-11] MEDS: HYDROmorphone 2 MG Tab PO PRN ×4 (04:39→21:58)
[2020-04-11] MEDS: Acetaminophen 500 MG Tab PO SCH ×3 (09:07→20:14)
[2020-04-11] MEDS: Gabapentin 600 MG Tab PO SCH ×3 (09:07→20:11)
[2020-04-11] MEDS: Potassium Chloride 10 MEQ Tab.ER PO SCH ×2 (09:07→20:10)
[2020-04-11] MEDS: Furosemide 40 MG Tab PO SCH ×2 (09:07→13:51)
[2020-04-11] MEDS: ALPRAZolam 1 MG Tab PO SCH (09:07)
[2020-04-11] MEDS: Loratadine 10 MG Tab PO SCH (09:08)
[2020-04-11] MEDS: Diclofenac Sodium 1% Gel 100 GM Tube TOP SCH ×2 (09:08→20:14)
[2020-04-11] MEDS: FLUoxetine 20 MG Cap PO SCH (09:08)
[2020-04-11] MEDS: Famotidine 20 MG Tab PO SCH ×2 (09:08→20:11)
[2020-04-11] MEDS: Formoterol/Mometasone 100-5 MCG 8.8 GM Inhaler IH SCH ×2 (09:08→20:10)
[2020-04-11] MEDS: busPIRone 15 MG Tab PO SCH ×2 (09:08→20:08)
--- NOTE | 2020-04-11 15:20 | PN ---
DATE SEEN: 04/11/2020 Alvina Storey is a 54-year-old female in swing bed. Therapy onboard. Nonweightbearing. Left Achilles tendon repair. Ortho referral upcoming, planned 04/17. On exam, appears comfortable. No complaints. Dressing and casting material in place. Right Achilles tendon repair. PLAN: Therapy onboard. /[id number] YOKASTA/KINSEY
[2020-04-11] MEDS: Diltiazem 120 MG Cap.CD PO SCH (20:08)
[2020-04-11] MEDS: atorvaSTATin 20 MG Tab PO SCH (20:11)
[2020-04-11] MEDS: OXcarbazepine 300 MG Tab PO SCH (20:13)
[2020-04-11] MEDS: QUEtiapine 100 MG Tab PO SCH (20:13)
[2020-04-11] MEDS: traZODone 100 MG Tab PO SCH (20:13)
[2020-04-11] MEDS: buPROPion 150 MG Tab.ER PO SCH (20:15)
[2020-04-12] MEDS: HYDROmorphone 2 MG Tab PO PRN ×3 (08:32→21:07)
[2020-04-12] MEDS: Gabapentin 600 MG Tab PO SCH ×3 (08:33→21:03)
[2020-04-12] MEDS: ALPRAZolam 1 MG Tab PO SCH (08:33)
[2020-04-12] MEDS: busPIRone 15 MG Tab PO SCH ×2 (08:35→21:00)
[2020-04-12] MEDS: Acetaminophen 500 MG Tab PO SCH ×3 (08:35→21:05)
[2020-04-12] MEDS: Furosemide 40 MG Tab PO SCH ×2 (08:35→13:38)
[2020-04-12] MEDS: Loratadine 10 MG Tab PO SCH (08:36)
[2020-04-12] MEDS: Potassium Chloride 10 MEQ Tab.ER PO SCH ×2 (08:36→21:02)
[2020-04-12] MEDS: Famotidine 20 MG Tab PO SCH ×2 (08:36→21:03)
[2020-04-12] MEDS: FLUoxetine 20 MG Cap PO SCH (08:36)
[2020-04-12] MEDS: Formoterol/Mometasone 100-5 MCG 8.8 GM Inhaler IH SCH ×2 (08:37→21:02)
--- NOTE | 2020-04-12 12:10 | PN ---
DATE SEEN: 04/12/2020 Alvina Storey is a 54-year-old female in today for ongoing care. Nonweightbearing to the right Achilles tendon repair. Doing well. Pain is controlled. Overdid therapy yesterday. Planned visit [facility], surgical visit on 04/07/2020. No complicating issues. Vital signs were stable. Medications reviewed and appropriate. Pain appears to be controlled. /[id number] YOKASTA/KINSEY
[2020-04-12] MEDS: Diclofenac Sodium 1% Gel 100 GM Tube TOP SCH ×2 (13:37→21:06)
[2020-04-12] MEDS: Diltiazem 120 MG Cap.CD PO SCH (21:01)
[2020-04-12] MEDS: atorvaSTATin 20 MG Tab PO SCH (21:02)
[2020-04-12] MEDS: traZODone 100 MG Tab PO SCH (21:04)
[2020-04-12] MEDS: QUEtiapine 100 MG Tab PO SCH (21:04)
[2020-04-12] MEDS: OXcarbazepine 300 MG Tab PO SCH (21:04)
[2020-04-12] MEDS: buPROPion 150 MG Tab.ER PO SCH (21:05)
[2020-04-13] MEDS: HYDROmorphone 2 MG Tab PO PRN ×3 (08:21→21:29)
[2020-04-13] MEDS ORDERED: Clotrimazole 1% Crm 30 GM Tube TOP SCH (09:00)
[2020-04-13] MEDS: busPIRone 15 MG Tab PO SCH ×2 (09:28→21:30)
[2020-04-13] MEDS: Furosemide 40 MG Tab PO SCH ×2 (09:28→14:19)
[2020-04-13] MEDS: FLUoxetine 20 MG Cap PO SCH (09:29)
[2020-04-13] MEDS: Loratadine 10 MG Tab PO SCH (09:29)
[2020-04-13] MEDS: Gabapentin 600 MG Tab PO SCH ×3 (09:29→21:28)
[2020-04-13] MEDS: Acetaminophen 500 MG Tab PO SCH ×3 (09:30→21:40)
[2020-04-13] MEDS: Potassium Chloride 10 MEQ Tab.ER PO SCH ×2 (09:30→21:35)
[2020-04-13] MEDS: Diclofenac Sodium 1% Gel 100 GM Tube TOP SCH ×2 (09:30→21:29)
[2020-04-13] MEDS: Famotidine 20 MG Tab PO SCH ×2 (09:30→21:36)
[2020-04-13] MEDS: Formoterol/Mometasone 100-5 MCG 8.8 GM Inhaler IH SCH ×2 (09:32→21:17)
[2020-04-13] MEDS: ALPRAZolam 1 MG Tab PO SCH (09:34)
--- NOTE | 2020-04-13 10:35 | PN ---
DATE SEEN: 04/13/2020 SUBJECTIVE: Alvina Storey is a 54-year-old female, swing bed, on April 07. Podiatry, ankle surgery followup April 17. Pain has been controlled. Therapy is going well, main issues. Nonambulatory. No particular complaints or concerns. Vital signs are stable. Brace is in place. Toes were warm after perfusion. Right Achilles tendon repair. PLAN: On board for therapy. /[id number] /KINSEY
[2020-04-13] MEDS: Clotrimazole 1% Crm 15 GM Tube TOP SCH ×2 (14:19→21:35)
[2020-04-13] MEDS: buPROPion 150 MG Tab.ER PO SCH (21:30)
[2020-04-13] MEDS: atorvaSTATin 20 MG Tab PO SCH (21:30)
[2020-04-13] MEDS: QUEtiapine 100 MG Tab PO SCH (21:34)
[2020-04-13] MEDS: Diltiazem 120 MG Cap.CD PO SCH (21:35)
[2020-04-13] MEDS: traZODone 100 MG Tab PO SCH (21:36)
[2020-04-13] MEDS: OXcarbazepine 300 MG Tab PO SCH (21:36)
[2020-04-14] MEDS: HYDROmorphone 2 MG Tab PO PRN ×3 (09:37→21:54)
[2020-04-14] MEDS: ALPRAZolam 1 MG Tab PO SCH (09:38)
[2020-04-14] MEDS: busPIRone 15 MG Tab PO SCH ×2 (09:39→20:17)
[2020-04-14] MEDS: Loratadine 10 MG Tab PO SCH (09:39)
[2020-04-14] MEDS: Furosemide 40 MG Tab PO SCH ×2 (09:39→14:26)
[2020-04-14] MEDS: Potassium Chloride 10 MEQ Tab.ER PO SCH ×2 (09:40→20:20)
[2020-04-14] MEDS: Clotrimazole 1% Crm 15 GM Tube TOP SCH ×3 (09:40→21:20)
[2020-04-14] MEDS: Famotidine 20 MG Tab PO SCH ×2 (09:40→20:21)
[2020-04-14] MEDS: Formoterol/Mometasone 100-5 MCG 8.8 GM Inhaler IH SCH ×2 (09:40→20:19)
[2020-04-14] MEDS: FLUoxetine 20 MG Cap PO SCH (09:40)
[2020-04-14] MEDS: Acetaminophen 500 MG Tab PO SCH ×3 (09:41→20:17)
[2020-04-14] MEDS: Diclofenac Sodium 1% Gel 100 GM Tube TOP SCH ×2 (09:41→20:19)
[2020-04-14] MEDS: Gabapentin 600 MG Tab PO SCH ×3 (09:55→20:17)
--- NOTE | 2020-04-14 17:00 | PCM.PN ---
- General Info Date of Service: 04/14/20 Subjective Update: Alvina states she has been taking Dilaudid prior to therapies and at bedtime, today her pain is worse. She does admit that her PTSD, anxiety and depression are worse since her injury and being restricted to swing bed, no visitors, can't see her dog. She was having Zoom visits with her psychologist weekly prior to being hospitalized but has not seen [facility] for awhile, no recent medication changes. She has schedule Ativan in am and as needed along with Buspar 30 mg tid. Meri Jose, discharge planning did note that she had a Zoom visit with psychology last week but will make sure that this is scheduled weekly. She is non-weightbearing, has appt with podiatry on Friday. She states she feels comfortable taking Dilaudid here because she is supervised but had history of drug abuse in remote past, has been clean for 16 yrs, doesn't want to go home with narcotics. Had [place] last month, had itching and wheezing with it. History of COPD/Asthma, has lot of sputum production in the mornings, states she has incentive spirometry at home but not flutter device. Last bowel movement yesterday, drinks prune juice. Functional Status: Reports: Tolerating Diet - Patient Data Vitals - Most Recent: Last Vital Signs Temp 97.6 F 04/14/20 09:00 Pulse 69 04/14/20 09:00 Resp 16 04/14/20 09:00 BP 127/85 04/14/20 09:00 Pulse Ox 95 04/14/20 13:00 Weight - Most Recent: 367 lb 4.8 oz Med Orders - Current: Current Medications Acetaminophen (Tylenol Extra Strength) 500 - 1,000 mg PO Q6H PRN PRN Reason: Pain Last Admin: 04/06/20 21:22 Dose: 1,000 mg Documented by: Acetaminophen (Tylenol Extra Strength) 1,000 mg PO TID [facility] Last Admin: 04/14/20 14:26 Dose: 1,000 mg Documented by: Albuterol (Ventolin Hfa) 0 gm INH Q6H PRN PRN Reason: sob Albuterol/Ipratropium (Duoneb 3.0-0.5 Mg/3 Ml) 3 ml NEB Q6H PRN PRN Reason: Wheezing Alprazolam (Xanax) 1 mg PO DAILY [facility] Last Admin: 04/14/20 09:38 Dose: 1 mg Documented by: Alprazolam (Xanax) 0.5 mg PO TID PRN PRN Reason: ANXIETY Atorvastatin Calcium (Lipitor) 20 mg PO BEDTIME [facility] Last Admin: 04/13/20 21:30 Dose: 20 mg Documented by: Bupropion HCl (Wellbutrin Xl) 150 mg PO BEDTIME [facility] Last Admin: 04/13/20 21:30 Dose: 150 mg Documented by: Buspirone HCl (Buspar) 30 mg PO BID [facility] Last Admin: 04/14/20 09:39 Dose: 30 mg Documented by: Clotrimazole (Clotrimazole 1%) 0 gm TOP BID [facility] Last Admin: 04/14/20 09:40 Dose: 1 applic Documented by: Diclofenac Sodium (Voltaren 1% Gel) 2 gm TOP BID [facility] Last Admin: 04/14/20 09:41 Dose: 2 gm Documented by: Diltiazem HCl (Cardizem Cd) 120 mg PO BEDTIME [facility] Last Admin: 04/13/20 21:35 Dose: 120 mg Documented by: Famotidine (Pepcid) 20 mg PO BID [facility] Last Admin: 04/14/20 09:40 Dose: 20 mg Documented by: Fluoxetine HCl (Prozac) 40 mg PO DAILY [facility] Furosemide (Lasix) 40 mg PO BIDDIURETIC [facility] Last Admin: 04/14/20 14:26 Dose: 40 mg Documented by: Gabapentin (Neurontin) 600 mg PO TID [facility] Last Admin: 04/14/20 14:26 Dose: 600 mg Documented by: Hydromorphone HCl (Dilaudid) 4 mg PO Q6H PRN PRN Reason: Pain Last Admin: 04/14/20 15:21 Dose: 4 mg Documented by: Hydromorphone HCl (Dilaudid) 2 mg PO Q6H PRN PRN Reason: Pain Last Admin: 04/11/20 04:39 Dose: 2 mg Documented by: Hydroxyzine HCl (Atarax) 50 mg PO Q4H PRN PRN Reason: Nausea Last Admin: 04/09/20 11:00 Dose: 50 mg Documented by: Loratadine (Claritin) 10 mg PO DAILY [facility] Last Admin: 04/14/20 09:39 Dose: 10 mg Documented by: Mometasone Furoate/Formoterol Fumar (Dulera 100-5 Mcg) 2 puff IH BID [facility] Last Admin: 04/14/20 09:40 Dose: 2 puff Documented by: Oxcarbazepine (Trileptal) 600 mg PO BEDTIME [facility] Last Admin: 04/13/20 21:36 Dose: 600 mg Documented by: Potassium Chloride (Klor-Con 10) 10 meq PO BID [facility] Last Admin: 04/14/20 09:40 Dose: 10 meq Documented by: Quetiapine Fumarate (Seroquel) 200 mg PO BEDTIME [facility] Last Admin: 04/13/20 21:34 Dose: 200 mg Documented by: Rivaroxaban (Xarelto) 20 mg PO BEDTIME [facility] Last Admin: 04/13/20 21:37 Dose: 20 mg Documented by: Senna/Docusate Sodium (Senna Plus) 1 tab PO BID [facility] Last Admin: 04/14/20 09:40 Dose: 1 tab Documented by: Trazodone HCl (Trazodone) 200 mg PO BEDTIME [facility] Last Admin: 04/13/20 21:36 Dose: 200 mg Documented by: Varenicline (Chantix) 1 mg PO BID [facility] Last Admin: 04/14/20 09:39 Dose: 1 mg Documented by: Discontinued Medications Chlorhexidine Gluconate (Peridex 0.12% Rinse) 15 ml PO BID [facility] Fluoxetine HCl (Prozac) 20 mg PO DAILY [facility] Last Admin: 04/14/20 09:40 Dose: 20 mg Documented by: Ondansetron HCl (Zofran Odt) 4 mg PO BID PRN PRN Reason: Nausea Oxycodone HCl (Oxycodone) 5 mg PO Q6H PRN PRN Reason: Pain Senna/Docusate Sodium (Senna Plus) 1 tab PO BID PRN PRN Reason: Constipation Last Admin: 04/04/20 21:04 Dose: 1 tab Documented by: Varenicline (Chantix) 1 mg PO BIDPC [facility] Last Admin: 04/04/20 19:45 Dose: Not Given Documented by: - Exam General: Alert, Oriented, Cooperative, No Acute Distress Lungs: Clear to Auscultation, Normal Respiratory Effort Cardiovascular: Regular Rate, Regular Rhythm GI/Abdominal Exam: Normal Bowel Sounds, Soft, Non-Tender, No Distention Extremities: Other (cast on right foot.) Psy/Mental Status: Alert, Labile Mood, Anxious, Depressed. No: Normal Affect, Hallucinations Sepsis Event Note - Evaluation Sepsis Screening Result: No Definite Risk - Focused Exam Vital Signs: Vital Signs Temp Pulse Resp BP Pulse Ox Pulse Ox 04/14/20 13:00 95 04/14/20 09:00 97.6 F 69 16 127/85 93 L - Problem List & Annotations (1) Achilles rupture, right SNOMED Code(s): 94071630766126576 Code(s): S86.011A - STRAIN OF RIGHT ACHILLES TENDON, INITIAL ENCOUNTER Status: Acute Current Visit: Yes (2) S/P tendon repair SNOMED Code(s): 865927280, 894107865 Code(s): Z98.890 - OTHER SPECIFIED POSTPROCEDURAL STATES Status: Acute Current Visit: Yes (3) PTSD (post-traumatic stress disorder) SNOMED Code(s): 99849805 Code(s): F43.10 - POST-TRAUMATIC STRESS DISORDER, UNSPECIFIED Status: Acute Current Visit: Yes (4) Anxiety SNOMED Code(s): 17266161 Code(s): F41.9 - ANXIETY DISORDER, UNSPECIFIED Status: Acute Current Visit: Yes (5) Depression SNOMED Code(s): 16304331 Code(s): F32.9 - MAJOR DEPRESSIVE DISORDER, SINGLE EPISODE, UNSPECIFIED Status: Acute Current Visit: Yes - Problem List Review Problem List Initiated/Reviewed/Updated: Yes - My Orders Last 24 Hours: My Active Orders 04/15/20 09:00 FLUoxetine [PROzac] 40 mg PO DAILY - Plan Plan:: 1. Increase Prozac to 40 mg daily, will start weaning Dilaudid 4 mg to 2 mg next Friday/. Schedule Psychology Zoom visits weekly. 2. Non-weightbearing, continue PT/OT. 3. Flutter valve, q1wa. 4. Podiatry appt for Tuesday 04/17, will adjust treatments as needed.
[2020-04-14] MEDS: buPROPion 150 MG Tab.ER PO SCH (20:18)
[2020-04-14] MEDS: atorvaSTATin 20 MG Tab PO SCH (20:18)
[2020-04-14] MEDS: Diltiazem 120 MG Cap.CD PO SCH (20:18)
[2020-04-14] MEDS: OXcarbazepine 300 MG Tab PO SCH (20:20)
[2020-04-14] MEDS: traZODone 100 MG Tab PO SCH (20:21)
[2020-04-14] MEDS: QUEtiapine 100 MG Tab PO SCH (20:21)
[2020-04-15] MEDS ORDERED: FLUoxetine 20 MG Cap PO SCH (09:00)
[2020-04-15] MEDS: Furosemide 40 MG Tab PO SCH ×2 (09:38→13:11)
[2020-04-15] MEDS: Acetaminophen 500 MG Tab PO SCH ×3 (09:39→20:37)
[2020-04-15] MEDS: FLUoxetine 20 MG Cap PO SCH (09:40)
[2020-04-15] MEDS: Potassium Chloride 10 MEQ Tab.ER PO SCH ×2 (09:43→20:39)
[2020-04-15] MEDS: Famotidine 20 MG Tab PO SCH ×2 (09:44→20:37)
[2020-04-15] MEDS: busPIRone 15 MG Tab PO SCH ×2 (09:46→20:37)
[2020-04-15] MEDS: Loratadine 10 MG Tab PO SCH (09:47)
[2020-04-15] MEDS: Diclofenac Sodium 1% Gel 100 GM Tube TOP SCH ×2 (09:47→20:39)
[2020-04-15] MEDS: Formoterol/Mometasone 100-5 MCG 8.8 GM Inhaler IH SCH ×2 (09:48→20:39)
[2020-04-15] MEDS: HYDROmorphone 2 MG Tab PO PRN ×2 (10:00→18:38)
[2020-04-15] MEDS: ALPRAZolam 1 MG Tab PO SCH (10:01)
[2020-04-15] MEDS: Gabapentin 600 MG Tab PO SCH ×3 (10:01→20:37)
[2020-04-15] MEDS: Clotrimazole 1% Crm 15 GM Tube TOP SCH ×2 (13:11→20:41)
[2020-04-15] MEDS: traZODone 100 MG Tab PO SCH (20:37)
[2020-04-15] MEDS: QUEtiapine 100 MG Tab PO SCH (20:38)
[2020-04-15] MEDS: OXcarbazepine 300 MG Tab PO SCH (20:38)
[2020-04-15] MEDS: Diltiazem 120 MG Cap.CD PO SCH (20:38)
[2020-04-15] MEDS: atorvaSTATin 20 MG Tab PO SCH (20:38)
[2020-04-15] MEDS: buPROPion 150 MG Tab.ER PO SCH (20:39)
[2020-04-16] MEDS: busPIRone 15 MG Tab PO SCH ×2 (08:58→21:24)
[2020-04-16] MEDS: Furosemide 40 MG Tab PO SCH ×2 (08:58→13:32)
[2020-04-16] MEDS: Loratadine 10 MG Tab PO SCH (08:59)
[2020-04-16] MEDS: Clotrimazole 1% Crm 15 GM Tube TOP SCH ×2 (08:59→21:28)
[2020-04-16] MEDS: Famotidine 20 MG Tab PO SCH ×2 (09:00→21:25)
[2020-04-16] MEDS: Potassium Chloride 10 MEQ Tab.ER PO SCH ×2 (09:00→21:23)
[2020-04-16] MEDS: Formoterol/Mometasone 100-5 MCG 8.8 GM Inhaler IH SCH ×2 (09:00→21:25)
[2020-04-16] MEDS: Diclofenac Sodium 1% Gel 100 GM Tube TOP SCH ×2 (09:01→21:22)
[2020-04-16] MEDS: Acetaminophen 500 MG Tab PO SCH ×3 (09:01→21:22)
[2020-04-16] MEDS: FLUoxetine 20 MG Cap PO SCH (09:01)
[2020-04-16] MEDS: HYDROmorphone 2 MG Tab PO PRN ×3 (09:18→22:37)
[2020-04-16] MEDS: Gabapentin 600 MG Tab PO SCH ×3 (09:18→21:22)
[2020-04-16] MEDS: ALPRAZolam 1 MG Tab PO SCH (09:18)
[2020-04-16] MEDS: traZODone 100 MG Tab PO SCH (21:22)
[2020-04-16] MEDS: QUEtiapine 100 MG Tab PO SCH (21:23)
[2020-04-16] MEDS: buPROPion 150 MG Tab.ER PO SCH (21:24)
[2020-04-16] MEDS: Diltiazem 120 MG Cap.CD PO SCH (21:24)
[2020-04-16] MEDS: atorvaSTATin 20 MG Tab PO SCH (21:24)
[2020-04-16] MEDS: OXcarbazepine 300 MG Tab PO SCH (21:26)
[2020-04-17] MEDS: Furosemide 40 MG Tab PO SCH ×2 (08:16→13:55)
[2020-04-17] MEDS: FLUoxetine 20 MG Cap PO SCH (08:19)
[2020-04-17] MEDS: Potassium Chloride 10 MEQ Tab.ER PO SCH ×2 (08:20→20:56)
[2020-04-17] MEDS: Acetaminophen 500 MG Tab PO SCH ×3 (08:20→21:00)
[2020-04-17] MEDS: busPIRone 15 MG Tab PO SCH ×2 (08:20→20:53)
[2020-04-17] MEDS: Famotidine 20 MG Tab PO SCH ×2 (08:20→20:57)
[2020-04-17] MEDS: Loratadine 10 MG Tab PO SCH (08:20)
[2020-04-17] MEDS: Formoterol/Mometasone 100-5 MCG 8.8 GM Inhaler IH SCH ×2 (08:20→20:56)
[2020-04-17] MEDS: Diclofenac Sodium 1% Gel 100 GM Tube TOP SCH ×2 (08:21→21:00)
[2020-04-17] MEDS: Clotrimazole 1% Crm 15 GM Tube TOP SCH ×2 (08:21→20:55)
[2020-04-17] MEDS: ALPRAZolam 1 MG Tab PO SCH (08:27)
[2020-04-17] MEDS: Gabapentin 600 MG Tab PO SCH ×3 (08:27→20:57)
[2020-04-17] MEDS: HYDROmorphone 2 MG Tab PO PRN ×3 (08:27→21:02)
[2020-04-17] MEDS: Diltiazem 120 MG Cap.CD PO SCH (20:54)
[2020-04-17] MEDS: atorvaSTATin 20 MG Tab PO SCH (20:56)
[2020-04-17] MEDS: QUEtiapine 100 MG Tab PO SCH (20:58)
[2020-04-17] MEDS: traZODone 100 MG Tab PO SCH (20:59)
[2020-04-17] MEDS: OXcarbazepine 300 MG Tab PO SCH (20:59)
[2020-04-17] MEDS: buPROPion 150 MG Tab.ER PO SCH (21:01)
[2020-04-18] MEDS: FLUoxetine 20 MG Cap PO SCH (09:51)
[2020-04-18] MEDS: ALPRAZolam 1 MG Tab PO SCH (09:51)
[2020-04-18] MEDS: Gabapentin 600 MG Tab PO SCH ×3 (09:51→21:31)
[2020-04-18] MEDS: Famotidine 20 MG Tab PO SCH ×2 (09:52→21:37)
[2020-04-18] MEDS: Furosemide 40 MG Tab PO SCH ×2 (09:52→14:48)
[2020-04-18] MEDS: Acetaminophen 500 MG Tab PO SCH ×3 (09:52→21:32)
[2020-04-18] MEDS: HYDROmorphone 2 MG Tab PO PRN ×2 (09:52→21:40)
[2020-04-18] MEDS: Potassium Chloride 10 MEQ Tab.ER PO SCH ×2 (09:52→21:34)
[2020-04-18] MEDS: Loratadine 10 MG Tab PO SCH (09:52)
[2020-04-18] MEDS: Formoterol/Mometasone 100-5 MCG 8.8 GM Inhaler IH SCH ×2 (09:53→21:31)
[2020-04-18] MEDS: busPIRone 15 MG Tab PO SCH ×2 (09:53→21:36)
[2020-04-18] MEDS: Clotrimazole 1% Crm 15 GM Tube TOP SCH ×2 (09:53→21:39)
[2020-04-18] MEDS: Diclofenac Sodium 1% Gel 100 GM Tube TOP SCH ×2 (09:53→21:31)
[2020-04-18] MEDS: QUEtiapine 100 MG Tab PO SCH (21:32)
[2020-04-18] MEDS: traZODone 100 MG Tab PO SCH (21:34)
[2020-04-18] MEDS: buPROPion 150 MG Tab.ER PO SCH (21:35)
[2020-04-18] MEDS: atorvaSTATin 20 MG Tab PO SCH (21:35)
[2020-04-18] MEDS: Diltiazem 120 MG Cap.CD PO SCH (21:36)
[2020-04-18] MEDS: OXcarbazepine 300 MG Tab PO SCH (21:37)
--- OUTSIDE RECORDS SUMMARY | 2020-04-19 08:33 | XMSREPORT ---
:1965 Author Organization [facility] s Address [address] [place] [address] [address] [place] [id number] Care Team Providers Name Role Phone RADHA Arguello Primary Care Provider RADHA Arguello Attributed Provider Reason for Visit Auth/Cert (Routine) Status Reason Specialty Diagnoses / Referred By Referred To Procedures Contact Contact Continuity of Care Diagnoses Strain of right Achilles tendon, subsequent encounter Norbert Garrett Procedures RPR PRIME OPEN PERCUTANEOUS RUPTURED ACHILLES TENDON C, AYLAM [address] [place] [id number] Encounter Details Date Type Department Care Team Description 03/31/2020 - Hospital Encounter [facility] Gerry, Mily r upture, 04/04/2020 [facility] MSBing Fong DPM Achilles [address] [place] [address] [place], [place] [phone] [id number] [phone] Allergies Active Allergy Reactions Severity Noted Date Comments Aspirin Wheezing/Bronchospas High 03/03/2012 m (High) Codeine Wheezing/Bronchospas High 03/03/2012 m (High) Propoxyphene Hcl Hives (High), High 03/03/2012 Wheezing/Bronchospas m (High), Tachycardia Sumatriptan Nausea and Vomiting, 03/03/2012 Headache Methadone Other (Specify in 03/03/2012 hallucinat ions Comments) Morphine Sulfate Shortness of breath 03/03/2012 Swel ling for the neck Hydrocodone-Acetaminop Other (Specify in 03/27/2020 Feels like ants are hen Comments) crawling all ov er body Nsaids Hives (High), High 03/03/2012 Wheezing/Bronchospas m (High), Rash, Nausea and Vomiting, Diarrhea Penicillin Other (Specify in High 03/03/2012 Shock/unco nsciousness Comments) Adhesives Hives (High), Rash High 03/03/2012 Theophylline Nausea and Vomiting, 03/03/2012 Diarrhea Toradol Anaphylaxis (High) High 03/03/2012 Closing o f throat Tramadol Hcl Anaphylaxis (High), High 03/03/2012 Closing of throat Itching Ondansetron Hcl Itching 03/23/2015 Skin itches and chambers documented as of this encounter (statuses as of 04/04/2020) Medications Medication Sig Dispensed Refills Start Date End Date Status Oxygen therapy Inhale 3-4 L/min 0 Active orally. O2 therapy continuously. 3 L when sitting and 4 L when up walking. 3L at night. loratadine (CLARITIN) Take 1 tablet (10 0 04/04/2017 Active 10 mg tablet mg) by mouth 1 time per day Multiple Take 1 tablet by 30 tablet 0 07/23/2017 Ac tive Vitamins-Minerals mouth 2 times a (MULTIVITAL) tablet day magnesium 100 MG CAPS Take 1 tablet by 0 Active mouth 1 time per day calcium Take 1 tablet by 0 Act silvestre carbonate-vitamin D3 mouth 1 time a day 600 mg-400 unit tablet with breakfast traZODone (DESYREL) Take 2 tablets 180 tablet 0 08/30/2019 Active 100 mg (200 mg) by mouth tabletIndications: every night at Mood disorder (HCC) bedtime QUEtiapine fumarate Take 1 tablet (200 90 tablet 0 08/30/2019 Active (SEROQUEL-XR) 200 mg mg) by mouth 1 1 SR tablet (24 time per day hr)Indications: Mood disorder (HCC) cephalexin (KEFLEX) Take for capsules 4 capsule 3 08/30/2019 Active 500 mg by mouth one hour capsuleIndications: prior to dental Prophylactic measure work buPROPion (WELLBUTRIN Take 1 tablet (150 90 tablet 0 0 Active XL) 150 mg tablet (24 mg) by mouth 1 hr)Indications: Mood time per day disorder (HCC) Chlorhexidine Place 0.5 0 Active Gluconate (PERIDEX MT) teaspoonsful into mouth 2 times a day FLUoxetine (PROZAC) 20 Take 20 mg by 0 Active mg capsule mouth 1 time per day ALPRAZolam (XANAX) 0.5 Take 0.5 mg by 0 Active mg tablet mouth 3 times a day as needed for anxiety or nervousness ALPRAzolam (XANAX) 1 Take 1 mg by mouth 0 Active mg tablet 1 time per day rivaroxaban (XARELTO) Take 1 tablet (20 10 tablet 0 12/31/2019 Active 20 mg mg) by mouth every tabletIndications: night at bedtime History of Pulmonary Indications: Embolism History of Pulmonary Embolism furosemide (LASIX) 40 Take 1 tablet (40 180 tablet 1 0 Active mg tabletIndications: mg) by mouth two Bilateral leg edema times a day (in the morning and mid-afternoon). senna-docusate sodium Take 1 tablet by 60 tablet 4 12/31/2019 Active (SENOKOT-S;PERICOLACE) mouth 2 times a 8.6-50 MG day as needed for tabletIndications: constipation Constipation, unspecified constipation type potassium chloride Take 1 tablet (10 90 tablet 3 12/31/2019 Active (KLOR-CON M10) 10 MEQ mEq) by mouth 2 CR tabletIndications: times a day Hypokalemia linaclotide (LINZESS) Take 1 capsule 90 capsule 1 12/31/2019 Active 145 mcg (145 mcg) by mouth capsuleIndications: 1 time per day Constipation, unspecified constipation type famotidine (PEPCID) 20 Take 1 tablet (20 180 tablet 1 12/31/19 20 Active mg tabletIndications: mg) by mouth 2 Gastroesophageal times a day reflux disease without esophagitis dilTIAZem (CARDIZEM Take 1 capsule 90 capsule 1 12/31/2019 Active SR) 120 mg extended (120 mg) by mouth release 1 time a day in capsuleIndications: the evening Migraine with aura and without status migrainosus, not intractable budesonide-formoterol Inhale 2 puffs 3 Inhaler 4 12/31/2019 Active (SYMBICORT) 80-4.5 orally every night mcg/puff at bedtime Shake inhalerIndications: well before using. History of COPD, Rinse mouth after History of asthma use. atorvaSTATin (LIPITOR) Take 1 tablet (20 90 tablet 4 0 Active 20 mg mg) by mouth 1 1 tabletIndications: time per day Hyperlipidemia, unspecified hyperlipidemia type albuterol-ipratropium Inhale 1 unit-dose 1 box 4 0 Active (DUO-NEB) 2.5-0.5 mg/3 (3 mL) by 1 mL inhalation nebulization 4 solutionIndications: times a day as History of COPD, needed for History of asthma bronchospasm, shortness of breath or wheezing Additional information Patient taking differently: 1 unit-dose Nebulization Four times a day prn, bronchospasm, shortness of breath, wheezing, She uses bid scheduled AM & 1600 daily PLUS an additional bidprn if needed, Reported on 03/31/2020 5:53 PM albuterol HFA Inhale 1 1 Inhaler 4 12/31/2019 Activ e (PROVENTIL,PROAIR,VENTOLIN) 108 puff orally (90 Base) MCG/ACT 3 times a inhalerIndications: History of day Shake COPD, History of asthma well before using. baclofen (LIORESAL) 10 mg TAKE 1 60 tablet 5 02/16/2020 Active tabletIndications: Migraine TABLET TWICE with aura and without status DAILY migrainosus, not intractable NEEDED diclofenac (VOLTAREN) 1% Apply 2 g 150 g 12 02/16/2020 Active gelIndications: Arthralgia, topically 2 unspecified joint times a day OXcarbazepine (TRILEPTAL) 600 Take 600 mg 0 03/02/20 20 Active mg tablet by mouth 1 time a day in the evening gabapentin (NEURONTIN) 600 mg Take 1 270 tablet 1 0 11/ Active tabletIndications: Migraine tablet (600 22/ with aura and without status mg) by mouth 202 migrainosus, not intractable 3 times a 0 day LORazepam (ATIVAN) 0.5 mg One tablet 2 tablet 0 03/03/2020 Active tabletIndications: Brain lesion one hour prior to MRI, repeat x 1 prior if needed ondansetron (ZOFRAN ODT) 4 mg TAKE 1 60 tablet 1 03/22/2020 Active dispersible tabletIndications: TABLET BY Nausea MOUTH TWICE A DAY NEEDED FOR NAUSEA/VOMIT ING fluticasone-salmeterol (ADVAIR) Inhale 1 0 Active 100-50 mcg/dose discus puff orally 1 time per day Rinse mouth after use. Biotin 79454 MCG TABS Take 5 mg by 0 Active mouth 2 times a day busPIRone (BUSPAR) 30 mg tablet Take 30 mg 0 020 Active by mouth 2 times a day varenicline (CHANTIX) 1 mg Take 1 180 tablet 1 03/27/2020 0 8/ Active tabletIndications: History of tablet (09 01/ tobacco abuse mg) by mouth 202 2 times a 1 day vitamin D3, cholecalciferol, 25 Take 1 30 tablet 0 04/01/20 20 Active mcg (1000 unit) tablet tabletIndications: Rupture of (1,000 right Achilles tendon, Units) by subsequent encounter, mouth 1 time Post-operative state per day calcium citrate-vitamin D Take 1 0 04/01/2020 Active (CITRACAL + VIT D) 315 mg-250 tablet by unit tabletIndications: Rupture mouth 2 of right Achilles tendon, times a day subsequent encounter, with meals Post-operative state oxyCODONE (OXY-IR) 5 mg tablet Take 1 20 tablet 0 0 09/ Active (immediate release)Indications: tablet (5 01/ Rupture of right Achilles mg) by mouth 2 02 tendon, subsequent encounter, every 6 0 Post-operative state hours as needed for severe pain for up to 3 days acetaminophen (TYLENOL) 500 mg Take 1-2 40 tablet 0 0 Active tabletIndications: Rupture of tablets right Achilles tendon, (500-1,000 subsequent encounter, mg) by mouth Post-operative state every 6 hours as needed for moderate pain busPIRone (BUSPAR) 10 mg Take 2 360 tablet 0 08/30/2019 08/ Discontinued tabletIndications: Mood tablets (20 24/ (Phase of Care disorder (HCC) mg) by mouth 202 co mplete) 3 times a 0 day varenicline (CHANTIX) 1 mg Take 1 180 tablet 0 08/30/2019 0 8/ Discontinued tabletIndications: History of tablet (1 24/ (Reorder) tobacco abuse mg) by mouth 202 2 times a 0 day phentermine 30 MG Take 1 30 capsule 0 10/22/2019 08/ Discontinued capsuleIndications: Obesity, capsule (30 24/ (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, BMI 50 or higher (HCC) mg) by mouth 202 error) 1 time a day 0 in the morning acetaminophen (TYLENOL) 325 mg Take 2 30 tablet 0 0 08/ Discontinued tabletIndications: Acute tablets (650 29 / (Stop Taking at appendicitis mg) by mouth 202 Disc harge) every 6 0 hours as needed for mild pain HYDROcodone-acetaminophen Take 1-2 10 tablet 0 03/03/2020 08/ Discontinued (NORCO) 5-325 mg tablets by 24/ (D radha entry tabletIndications: Acute pain mouth 2 202 error) of left knee, Right foot pain, times a day 0 Acute pain of right shoulder as needed for severe pain HYDROcodone-acetaminophen Take 1 to 2 20 tablet 0 03/14/2020 0 8/ Discontinued (NORCO) 5-325 mg tablets by 24/ (D radha entry tabletIndications: Rupture of mouth Every 202 error) right Achilles tendon, 4 hours as 0 subsequent encounter needed for severe pain documented as of this encounter (statuses as of 04/04/2020) Active Problems Problem Noted Date Tendon rupture, Achilles 04/03/2020 History of pulmonary embolus (PE) 03/27/2020 Acute appendicitis 12/22/2019 Deliberate self-cutting 08/30/2019 Pain due to unicompartmental arthroplasty of knee 05/04 Arthritis of right ankle 09/15/2018 S/P bilateral unicompartmental knee replacement 2016 Borderline personality disorder 02/13/2017 Suicidal ideation 02/13/2017 PTSD (post-traumatic stress disorder) 02/13/2017 Homicidal ideation 02/13/2017 Chronic pain 09/10/2015 Calculus of gallbladder 04/29/2015 Pain medication agreement 03/30/2015 Overview: A pain management agreement is on file for this patient. Before prescribing any opioids for this patient, please contact the environmental health officer staff at [facility] [address] [place] [address] . Date Contract Signed: 03/30/2015 Provider managing pain: Ariela yusuf NP Pharmacy: [facility] [place] [address] . Tobacco dependence 08/28/2014 Dyspnea on exertion 08/28/2014 Dyslipidemia 08/28/2014 Claudication of lower extremity 08/28/2014 Mood disorder 06/18/2014 Anxiety state 06/18/2014 BMI 50.0-59.9, adult 12/03/2013 S/P laparoscopic sleeve gastrectomy 10/14/2013 Migraine 03/26/2012 History of COPD 09/12/2011 Pain in Soft Tissues of Limb 10/28/2005 Backache 10/28/2005 Drug dependence 10/28/2005 Myalgia and myositis Morbid obesity documented as of this encounter (statuses as of 04/04/2020) Resolved Problems Problem Noted Date Resolved Date Degenerative arthritis of knee, bilateral 03/11/2017 04/23/2017 Arthritis of knee, left 01/16/2016 04/23/2017 Arthritis of knee, right 01/16/2016 04/23/2017 Controlled substance agreement signed 01/25/2014 Overview: Patient signed an opioid therapy agreement with [facility] today. All controlled substances should come through the pain clinic only. The only exception would be for acute pain problems from s erious injury/surgery limited to a short time to cover increases in pain. Patient selected [facility] [place]. Patient's primary care physician is Dr. Roach ([phone]) [facility]. Contact pain clinic with an y questions. Note: I did notify Dr. Roach's cl inic regarding agreement as well as patient's pharmacy. Pt signed a new [facility] Agreement today, 12-29-14. documented as of this encounter (statuses as of 04/04/2020) Immunizations Name Administration Dates Next Due FLU VACCINE SINGLE DOSE 10/22/2019 0.5mL(6MO+Fluzone/Flulaval/Fluarix,3YR+Afluria) Influenza Vaccine 04/23/2013 Pneumococcal Polysaccharide PPSV23 08/26/2017, 08/04/2008 TDAP 05/05/2018 documented as of this encounter Social History Tobacco Use Types Packs/Day Years Used Date Former Smoker Cigarettes 0 39 04/23/2015 - 1 Smokeless Tobacco: Never Used Alcohol Use Drinks/Week oz/Week Comments No 0 Standard drinks or equivalent 0.0 stopped in 2004 Physical Activity Answer Date Recorded On average, how many days per week do you engage in moderate to 0 days 09/14/2019 strenuous exercise (like walking fast, running, jogging, dancing, swimming, biking, or other activities that cause a light or heavy sweat)? On average, how many minutes do you engage in exercise at th is 0 min 09/14/2019 level? Sexually Active Control Partners Comments Yes None Male Sex Assigned at Date Recorded Not on file Job Start Date Occupation Industry Not on file Not on file Not on file Travel History Travel Start Travel End No recent travel history available. documented as of this encounter Last Filed Vital Signs Vital Sign Reading Time Taken Comments Blood Pressure 148/86 04/04/2020 7:27 AM CDT Pulse 76 04/04/2020 7:27 AM CDT Temperature 36.6 C (97.8 F) 04/04/2020 7:27 AM CDT Respiratory Rate 16 04/04/2020 7:27 AM CDT Oxygen Saturation 95% 04/04/2020 7:27 AM CDT RA Inhaled Oxygen Concentration - - Weight 153 kg (337 lb 4.9 oz) 03/31/2020 5:47 AM CDT Height 175.3 cm (5' 9") 03/31/2020 5:47 AM CDT Body Mass Index 49.81 03/31/2020 5:47 AM CDT documented in this encounter Functional Status Functional Status Response Date of Assessment Is the person deaf or does he/she have serious difficulty No 03/31/2020 hearing? Is this person blind or does he/she have difficulty No 03/31/2020 seeing even when wearing glasses? Do you have difficulty with walking, balance, climbing Yes 03/31/2020 stairs, or had a fall in the last 3 months? Does the patient have difficulty dressing or bathing? No 03/31/2020 Because of a physical, mental, or emotional condition; No 03/31/2020 does this person have difficulty doing errands alone such as visiting a doctor's office or shopping? Cognitive Status Response Date of Assessment Because of a physical, mental, or emotional condition; No 03/31/2020 does this person have serious difficulty concentrating, remembering, or making decisions? documented as of this encounter Discharge Summaries Mallory Briones MD - 04/04/2020 11:15 AM CDT Hospital Discharge Summary Attending Physician: Norbert Garrett DPM Attending Physician Specialty: Foot and Ankle Surgery (Orthopedic Surgery) Admit Date: 03/31/2020 Discharge Date: 04/04/20 Primary Care Physician: Karo Arguello APRN-LAYLA Discharge Diagnoses Active Problems: Tendon rupture, Achilles Resolved Problems: * No resolved hospital problems. * Hospital Course 54 y/o F with rupture of R Achilles tendon had surgical repair with Dr. Garrett on 03/31/2020. Operative course was uncomplicated. Postop course notable for some difficult to control pain and limited mobility; she will require TCU placement for additional therapy and assistance. She had good oral intake and was voiding well. She continues on her home Xarelto due to history of DVT. She is discharged on her home medication regimen for her history of hyperlipidemia, COPD, anxiety/depression, migraines, and chronic LE edema. COVID screen negative prior to discharge to facility. Follow-up outpatient arranged with podiatry. LabTests Pending at Discharge Follow-Up Scheduled Contact information for follow-up [facility], [facility], [facility] [address] [address] Next Steps: Follow up Instructions: Staff will provide services and therapies as needed. Preliminary Discharge Medications This list of medications is preliminary and tentative. Please see the After Visit Summary for the final and accurate medication list. Discharge Medication List START taking these medications START: calcium citrate-vitamin D 315 mg-250 unit tablet Commonly known as: CITRACAL + VIT D Dose: 1 tablet Take 1 tablet by mouth 2 times a day with meals START: oxyCODONE 5 mg tablet (immediate release) Commonly known as: OXY-IR Dose: 5 mg Take 1 tablet (5 mg) by mouth every 6 hours as needed for severe pain for up to 3 days START: vitamin D3 (cholecalciferol) 25 mcg (1000 unit) tablet Dose: 1,000 Units Take 1 tablet (1,000 Units) by mouth 1 time per day CONTINUE taking these medications which have CHANGED CONTINUE: acetaminophen 500 mg tablet Commonly known as: TYLENOL Dose: 500-1,000 mg Take 1-2 tablets (500-1,000 mg) by mouth every 6 hours as needed for moderate pain What changed: medication strength how much to take reasons to take this CONTINUE: albuterol-ipratropium 2.5-0.5 mg/3 mL inhalation solution Commonly known as: DUO-NEB Dose: 1 unit-dose Inhale 1 unit-dose (3 mL) by nebulization 4 times a day as needed for bronchospasm, shortness of breath or wheezing What changed: additional instructions CONTINUE taking these medications which have NOT CHANGED CONTINUE: albuterol HFA 108 (90 Base) MCG/ACT inhaler Commonly known as: PROVENTIL,PROAIR,VENTOLIN Dose: 1 puff Inhale 1 puff orally 3 times a day Shake well before using. CONTINUE: * ALPRAZolam 0.5 mg tablet Commonly known as: XANAX Dose: 0.5 mg Take 0.5 mg by mouth 3 times a day as needed for anxiety or nervousness CONTINUE: * ALPRAzolam 1 mg tablet Commonly known as: XANAX Dose: 1 mg Take 1 mg by mouth 1 time per day CONTINUE: atorvaSTATin 20 mg tablet Commonly known as: LIPITOR Dose: 20 mg Take 1 tablet (20 mg) by mouth 1 time per day CONTINUE: baclofen 10 mg tablet Commonly known as: LIORESAL TAKE 1 TABLET TWICE DAILY NEEDED CONTINUE: Biotin 52939 MCG Tabs Dose: 5 mg Take 5 mg by mouth 2 times a day CONTINUE: budesonide-formoterol 80-4.5 mcg/puff inhaler Commonly known as: SYMBICORT Dose: 2 puff Inhale 2 puffs orally every night at bedtime Shake well before using. Rinse mouth after use. CONTINUE: buPROPion 150 mg tablet (24 hr) Commonly known as: WELLBUTRIN XL Dose: 150 mg Take 1 tablet (150 mg) by mouth 1 time per day CONTINUE: busPIRone 30 mg tablet Commonly known as: BUSPAR Dose: 30 mg Take 30 mg by mouth 2 times a day CONTINUE: calcium carbonate-vitamin D3 600 mg-400 unit tablet Dose: 1 tablet Take 1 tablet by mouth 1 time a day with breakfast CONTINUE: cephalexin 500 mg capsule Commonly known as: KEFLEX Take for capsules by mouth one hour prior to dental work CONTINUE: diclofenac 1% gel Commonly known as: VOLTAREN Dose: 2 g Apply 2 g topically 2 times a day CONTINUE: dilTIAZem 120 mg extended release capsule Commonly known as: CARDIZEM SR Dose: 120 mg Take 1 capsule (120 mg) by mouth 1 time a day in the evening CONTINUE: famotidine 20 mg tablet Commonly known as: PEPCID Dose: 20 mg Take 1 tablet (20 mg) by mouth 2 times a day CONTINUE: FLUoxetine 20 mg capsule Commonly known as: PROzac Dose: 20 mg Take 20 mg by mouth 1 time per day CONTINUE: fluticasone-salmeterol 100-50 mcg/dose discus Commonly known as: ADVAIR Dose: 1 puff Inhale 1 puff orally 1 time per day Rinse mouth after use. CONTINUE: furosemide 40 mg tablet Commonly known as: LASIX Dose: 40 mg Take 1 tablet (40 mg) by mouth two times a day (in the morning and mid-afternoon). CONTINUE: gabapentin 600 mg tablet Commonly known as: NEURONTIN Dose: 600 mg Take 1 tablet (600 mg) by mouth 3 times a day CONTINUE: linaclotide 145 mcg capsule Commonly known as: Linzess Dose: 145 mcg Take 1 capsule (145 mcg) by mouth 1 time per day CONTINUE: loratadine 10 mg tablet Commonly known as: CLARITIN Dose: 10 mg Take 1 tablet (10 mg) by mouth 1 time per day CONTINUE: LORazepam 0.5 mg tablet Commonly known as: ATIVAN One tablet one hour prior to MRI, repeat x 1 prior if needed CONTINUE: magnesium 100 MG Caps Dose: 1 tablet Take 1 tablet by mouth 1 time per day CONTINUE: Multivital tablet Dose: 1 tablet Take 1 tablet by mouth 2 times a day CONTINUE: ondansetron 4 mg dispersible tablet Commonly known as: ZOFRAN ODT TAKE 1 TABLET BY MOUTH TWICE A DAY NEEDED FOR NAUSEA/VOMITING CONTINUE: OXcarbazepine 600 mg tablet Commonly known as: TRILEPTAL Dose: 600 mg Take 600 mg by mouth 1 time a day in the evening CONTINUE: Oxygen therapy Dose: 3-4 L/min Inhale 3-4 L/min orally. O2 therapy continuously. 3 L when sitting and 4 L when up walking. 3L at night. CONTINUE: PERIDEX MT Dose: 0.[address] 0.5 teaspoonsful into mouth 2 times a day CONTINUE: potassium chloride 10 MEQ CR tablet Commonly known as: KLOR-CON M10 Dose: 10 mEq Take 1 tablet (10 mEq) by mouth 2 times a day CONTINUE: QUEtiapine fumarate 200 mg SR tablet (24 hr) Commonly known as: SEROQUEL-XR Dose: 200 mg Take 1 tablet (200 mg) by mouth 1 time per day CONTINUE: rivaroxaban 20 mg tablet Commonly known as: Xarelto Dose: 20 mg Take 1 tablet (20 mg) by mouth every night at bedtime Indications: History of Pulmonary Embolism CONTINUE: senna-docusate sodium 8.6-50 MG tablet Commonly known as: SENOKOT-S;PERICOLACE Dose: 1 tablet Take 1 tablet by mouth 2 times a day as needed for constipation CONTINUE: traZODone 100 mg tablet Commonly known as: DESYREL Dose: 200 mg Take 2 tablets (200 mg) by mouth every night at bedtime CONTINUE: varenicline 1 mg tablet Commonly known as: Chantix Dose: 1 mg Take 1 tablet (1 mg) by mouth 2 times a day * This list has 2 medication(s) that are the same as other medications prescribed for you. Read thedirections carefully, and ask your doctor or other care provider to review them with you. You might also be taking other medications not listed above. If you have questions about any of your other medications, talk to the person who prescribed them or your Primary Care Provider. Where to Get Your Medications These medications were sent to [facility] [address] [place] [address] Demi MARQUEZ [id number] Hours: M-F 7am-9pm, Sat-Sun 7am-9pm acetaminophen 500 mg tablet Information about where to get these medications is not yet available Ask your nurse or doctor about these medications calcium citrate-vitamin D 315 mg-250 unit tablet oxyCODONE 5 mg tablet (immediate release) vitamin D3 (cholecalciferol) 25 mcg (1000 unit) tablet Temp: 97.8 F (36.6 C) BP: 148/86 Weight: (!) 153 kg (337 lb 4.9 oz) SpO2: 95 %(RA) Resp: 16 Pulse: 76 Current BMI (>50 = increased risk): (!) 49.79 O2 Device: Room Air O2 Flow Rate (L/min): 1 l/min Physical Exam Constitutional: She is oriented to person, place, and time. She appears well- developed and well-nourished. No distress. Somewhat sedated in appearance HENT: Head: Normocephalic and atraumatic. Right Ear: External ear normal. Left Ear: External ear normal. Cardiovascular: Normal rate and regular rhythm. Pulmonary/Chest: Effort normal. No respiratory distress. Musculoskeletal: Normal range of motion. She exhibits no edema. Neurological: She is alert and oriented to person, place, and time. Skin: Skin is warm and dry. No rash noted. She is not diaphoretic. No erythema. No pallor. Psychiatric: She has a normal mood and affect. Nursing note and vitals reviewed. Procedures Performed and Findings All procedures during admission Procedure(s): RIGHT ANKLE FLEXOR HALLUCIS LONGUS TENDON TRANSFER, GASTROCNEMIUS RECESSION FLAP Consultations Obtained CONSULT PODIATRY CONSULT INTERNAL MEDICINE CASE MANAGEMENT CONSULT Discharge Disposition ADULT Discharge Planning: Swingbed, non-Skilled with a planned acute care readmission (, ) Instructions for after discharge Contact your doctor if you develop a temperature greater than 101 degrees Contact your doctor if you experience increased pain, numbness, or tingling Contact your doctor if you have any questions in the first week Contact your doctor if you notice any drainage from your incision after 48 hours Contact your doctor if you notice any redness or swelling around your incision Elevate extremity Elevate affected extremity as needed for swelling. HOME MEDICAL EQUIPMENT Complete paper order. Ice to affected area: Ice to Right lower extremity: polar care as needed for swelling and pain. Alternate 20 minutes on and 20 minutes off. Assess skin every 2 hrs. Do not apply directly on skin. If you have questions or concerns, please call your orthopedic surgeon at the clinic No tub bath until directed Please call 911 and seek immediate emergency care if you experience any chest pain or shortness of breath or if you are coughing up blood Resume home diet Weight bearing status - non-weight bearing NWB to right lower extremity in posterior fiberglast molded splint Medical Decision Making A total of 25 minutes were spent on discharge coordination. documented in this encounter Discharge Instructions InstructionsRebecca Doss RN - 03/31/2020 You have a scopolamine patch behind your left ear. Remove this patch by 7 am on FridayApril 03. Wash your hands thoroughly with soap and water after removing the patch. Dispose of the patch in a safe place away from children and pets. Crutches Proper fitting helps you use your crutches safely and effectively. When fitting crutches, stand up straight and wear the shoes you will normally use to walk. If the crutches dont feel right, ask your doctor, nurse, or physical therapist (PT) to check the fit. Getting to know your crutches Crutches are often used for injuries to the knee, ankle, foot, or hip. Using crutches requires good coordination, balance, and upper body strength. If youre using only one crutch, keep it on the unaffected (uninjured) side unless told otherwise. The crutches fit if: You can put 2 to 3 fingers between your armpit and the top of the axillary pad. Your arms are slightly bent at the elbows when your hands are on the handgrips. Your wrists are even with the handgrips when your arms hang at your sides. Precautions Crutches should have nonskid rubber tips to prevent slipping. Change tips that look worn. Dont let your armpits rest on the pads this can cause tingling, numbness, and loss of muscle strength in your arm. Dont use crutches that are too short, too long, or mismatched. They can cause back pain and falls. In wet weather, dry crutch tips when coming indoors. Discharge Instructions: Using Crutches (NonWeight-Bearing) Your healthcare provider has prescribed crutches for you. A healthy leg can support your body weight, but when you have an injured leg or foot, you need to keep weight off it. The swing to methodof walking, sometimes called gait, is easy to learn and takes less arm strength and balance. The swing through gait takes more practice, but it moves you farther with each step and is less tiringoverall. Start with swing to and progress to swing through when instructed. Before you use crutches Be prepared: Remove throw rugs, electrical cords, and anything else that may cause you to fall. Arrange your household to keep the items you need handy. Keep everything else out of the way. Find a backpack, dorys pack, or apron, or use pockets to carry things. This will help you keep your hands free. Standing with crutches Use the balanced standing (tripod) position when you start or end a movement. Also use it whenever youre standing for a length of time. Move your crutches in front of you about 12 inches. Hold the injured (or weaker) foot off the floor. Find your balance. Be sure not to rest your armpits on the pads of the crutches. Walking with crutches Tips include the following: Start in a balanced standing (tripod) position. Squeeze the crutch pads against the sides of your chest. The bottom tips of the crutches should be wide enough apart for you to move easily between them. Support your weight on your hands, not on your armpits. Swing to gait With your crutches in front of you, press down on the handgrips. Lift your good (stronger) foot and swing your body up to the crutches. Land on your good foot, between your crutches. Keep the knee of your injured or weaker foot slightly bent. Reach forward and out with the crutches to begin the next step. Swing through gait With your crutches in front of you, press down on the handgrips. Lift your good (stronger) foot and swing your body through the crutches. Land on your good foot, about 12 inches in front of the crutches. Keep the knee of your injured leg slightly bent. Reach forward and out with the crutches to begin the next step. Follow-up Make a follow-up appointment as directed by your healthcare provider. When to call your healthcare provider Call your healthcare provider right away if you have any of the following: Sudden or increased shortness of breath Sudden chest pain Fever above 100.4F (38.0C) Increasing redness, tenderness, or swelling at the incision site or in the injured limb Drainage from the incision or injured limb Opening of the incision or injury Localized chest pain with coughing Discharge Instructions: Using Crutches (Weight-Bearing) Your healthcare provider has prescribed crutches for you. A healthy leg can support your body weight, but when you have an injured leg or foot, you need to keep weight off it. Once you are told that you can put some weight on your leg, use a weight-bearing method of walking as the leg heals. Depending on your arm strength and balance, you can either step to or step through. Practicewill help you learn to step through so that you can cover more ground with each step. Before you use crutches Be prepared with the following tips: Remove throw rugs, electrical cords, and anything else that may cause you to fall. Arrange your household to keep the items you need handy. Keep everything else out of the way. Find a backpack, dorys pack, or apron, or use pockets to carry things. This will help you keep your hands free. Standing with crutches Use the balanced standing (tripod) position when you start or end a movement. Also use it whenever you're standing for a length of time. Move your crutches in front of you about 12 inches. Find your balance. Be sure not to rest your armpits on the pads. Walking with crutches Follow these tips: Start in a balanced standing (tripod) position. Step forward with your affected foot. Land lightly between your crutches. Squeeze the pads against the sides of your chest. Support your weight with your hands and your affected leg. Press down on the handgrips. Step to This method includes the following: Lift your unaffected foot and step to the crutches. Land on your unaffected foot, between your crutches. Keep the knee slightly bent. Reach forward and out with the crutches to begin the next step. Step through This method includes the following: Lift the unaffected foot. Step forward through the crutches. Land on the unaffected foot, with the heel slightly in front of the toe of the other foot. Keep the knee slightly bent. Reach forward and out with the crutches to begin the next step. When to call your healthcare provider Call your healthcare provider right away if you have any of the following: Sudden or increased shortness of breath Sudden chest pain or localized chest pain with coughing Fever above 100.4F (38.0C) Increasing redness, tenderness, or swelling at theincision site or in the injured limb Drainage from the incision or injured limb Opening of the incision or injury Increasing pain, with or without activity Using Crutches: Sitting, Standing, Through Doors These instructions will help you get around while on crutches. Sitting down 1. Back up until you feel the chair with the back of your leg. Hold both crutches in the hand on your affected side. 2. Grab the armrest or the side of the chair with your free hand. 3. Lower yourself onto the front of the chair, then slide back. 4. To get up, reverse the 3 steps. Tip: Find sturdy, high-seated chairs with arms. If you must use a chair that swivels or has wheels, back it against something stable before you sit down. Getting into cars 1. Follow the first step above for sitting in a chair. Use the doorjamb or the dashboard for supportas you lower yourself. Watch your head. Dont hold on to the car door, or it may close on you. 2. With your hands, lift your affected leg into the car. Or use your unaffected leg to hook your affected leg behind the ankle and lift it in. Through doors To push a door open, stand sideways and push the door open with your body. To pull a door open, stand to the side. Get your balance and pull the door fully open with your hand. Plant the tip of the nearest crutch inside the door to act as a doorstop. Leave the crutch in place until youve walked through. Tip: Avoid revolving doors. Instead, use entrances designed for disabled people. Using Crutches: Up and Down Steps When climbing up and down steps, remember this rule: Up with the good (unaffected leg) and down withthe bad (affected leg). Note: If youre supposed to keep all weight off your leg (nonweight-bearing), ask your healthcare provider for special instructions. Tip: Ask a friend to carry one of your crutches while you climb or descend stairs. Up stairs Hold the handrail with one hand. If a friend is not available to carry one of the crutches, put both crutches in your other hand. Support your weight evenly between the handrail and your crutches. Put some weight on the crutches. Step up with your unaffected foot. Get your balance. Straighten your unaffected knee and lift your body weight. Bring your crutches and affected leg up. Down stairs Hold the handrail with one hand. If a friend is not available to carry one of the crutches, put both crutches in your other hand. Bend your unaffected knee, moving your crutches and affected leg down. Support your weight evenly between the handrail and your crutches. Slowly bring your unaffected leg down. Dont hop. Precautions for using stairs Always use an elevator if one is available. Have someone guard you as you learn to use stairs. A guard stands below you. He or she holds yourbelt (or a special gait belt you can borrow or buy) to assist you if you lose your balance. When there is no handrail, keep one crutch under each arm. Follow the instructions above. If the stairs are slippery or steep, it may be safer to lift or lower yourself from step to step while sitting. Hold both your crutches in one hand as you do so. Date Last Reviewed: 04/06/201519993833-7686 [employer]. [address] [place] [address]. All rights reserved. This information is not intended as a substitute for professional medical care. Always follow your healthcare professional's instructions. Discharge Instructions: After Your Surgery Youve just had surgery. During surgery, you were given medicine called anesthesia to keep you relaxed and free of pain. After surgery, you may have some pain or nausea. This is common. Here are sometips for feeling better and getting well after surgery. Stay on schedule with your medicine. Going home Your healthcare provider will show you how to take care of yourself when you go home. He or she willalso answer your questions. Have an adult family member or friend drive you home. For the first 24 hours after your surgery: Don't drive or use heavy equipment. Don't make important decisions or sign legal papers. Don't drink alcohol. Have someone stay with you, if needed. He or she can watch for problems and help keep you safe. Be sure to go to all follow-up visits with your healthcare provider. And rest after your surgery foras long as your healthcare provider tells you to. Coping with pain If you have pain after surgery, pain medicine will help you feel better. Take it as told, before pain becomes severe. Also, ask your healthcare provider or pharmacist about other ways to control pain. This might be with heat, ice, or relaxation. And follow any other instructions your surgeon or nurse gives you. Tips for taking pain medicine To get the best relief possible, remember these points: Pain medicines can upset your stomach. Taking them with a little food may help. Most pain relievers taken by mouth need at least 20 to 30 minutes to start to work. Don't wait till your pain becomes severe before you take your medicine. Try to time your medicineso that you can take it before starting an activity. This might be before you get dressed, go for a walk, or sit down for dinner. Constipation is a common side effect of pain medicines. Call your healthcare provider before taking any medicines such as laxatives or stool softeners to help ease constipation. Also ask if you should skip any foods. Drinkinglots of fluids andeating foodssuch as fruits and vegetables that arehigh in fiber can also help. Remember, don't take laxatives unless your surgeon has prescribed them. Drinking alcohol and taking pain medicine can cause dizziness and slow your breathing. It can even be deadly. Don't drink alcohol while taking pain medicine. Pain medicine can make you react more slowly to things. Don't drive or run machinery while takingpain medicine. Your healthcare providermay tell you to take acetaminophen to help ease your pain. Ask him or her how much you are supposed to take each day. Acetaminophen or other pain relievers may interact with your prescription medicines or other zhru-lfp-qvpuwte (OTC) medicines. Some prescription medicines have acetaminophen and other ingredients.Using both prescription and OTC acetaminophenfor paincan cause you to overdose. Readthe labels on your OTC medicineswith care. This will help youto clearly know the list of ingredients, how much to take, and anywarnings. It may also help you not take too muchacetaminophen.If you have questions or don't understand the information, ask your pharmacist or healthcare provider to explain it to you before you take the OTC medicine. Managing nausea Some people have an upset stomach after surgery. This is often because of anesthesia, pain, or pain medicine, or the stress of surgery. These tips will help you handle nausea and eat healthy foods as you get better. If you were on a special food plan before surgery, ask your healthcare provider if youshould follow it while you get better. These tips may help: Don't push yourself to eat. Your body will tell you when to eat and how much. Start off with clear liquids and soup. They are easier to digest. Next try semi-solid foods, such as mashed potatoes, applesauce, and gelatin, as you feel ready. Slowly move to solid foods. Dont eat fatty, rich, or spicy foods at first. Don't force yourself to have 3 large meals a day. Instead eat smaller amounts more often. Take pain medicines with a small amount of solid food, such as crackers or toast, to prevent nausea. When to call your healthcare provider Call your healthcare provider if: You still have intolerable pain an hour after taking medicine. The medicine may not be strong enough. You feel too sleepy, dizzy, or groggy. The medicine may be too strong. You have side effects such as nausea or vomiting, or skin changes such as rash, itching, or hives.Your healthcare provider may suggest other medicines to control side effects. Rash, itching, or hives may mean you have an allergic reaction. Report this right away. If you have trouble breathing or facial swelling, call 911 right away. If you have obstructive sleep apnea You were given anesthesia medicine during surgery to keep you comfortable and free of pain. After surgery, you may have more apnea spells because of this medicine and other medicines you were given. The spells may last longer than usual. At home: Keep using the continuous positive airway pressure (CPAP) device when you sleep. Unless your healthcare provider tells you not to, use it when you sleep, day or night. CPAP is a common device used to treat obstructive sleep apnea. Talk with your provider before taking any pain medicine, muscle relaxants, or sedatives. Your provider will tell you about the possible dangers of taking these medicines. [employer] reviewed this educational content on 10/02/201819991402-7504 [employer]. [address] [place] [address]. All rights reserved. This information is not intended as a substitute for professional medical care. Always follow your healthcare professional's instructions. documented in this encounter Medications at Time of Discharge Medication Sig Dispensed Refills Start Date End Date fluticasone-salmeterol Inhale 1 puff orally 0 (ADVAIR) 100-50 mcg/dose 1 time per day Rinse discus mouth after use. busPIRone (BUSPAR) 30 mg Take 30 mg by mouth 0 tablet 2 times a day varenicline (CHANTIX) 1 Take 1 tablet (1 mg) 180 tablet 1 04/01/2021 mg tabletIndications: by mouth 2 times a History of tobacco abuse day ondansetron (ZOFRAN ODT) TAKE 1 TABLET BY 60 tablet 1 03/22 4 mg dispersible MOUTH TWICE A DAY tabletIndications: NEEDED FOR Nausea NAUSEA/VOMITING OXcarbazepine Take 600 mg by mouth 0 03/02/2020 (TRILEPTAL) 600 mg 1 time a day in the tablet evening gabapentin (NEURONTIN) Take 1 tablet (600 270 tablet 1 03/0306/25/2020 600 mg mg) by mouth 3 times tabletIndications: a day Migraine with aura and without status migrainosus, not intractable baclofen (LIORESAL) 10 TAKE 1 TABLET TWICE 60 tablet 5 02/01 mg tabletIndications: DAILY NEEDED Migraine with aura and without status migrainosus, not intractable rivaroxaban (XARELTO) 20 Take 1 tablet (20 10 tablet 0 12/03 mg tabletIndications: mg) by mouth every History of Pulmonary night at bedtime Embolism Indications: History of Pulmonary Embolism furosemide (LASIX) 40 mg Take 1 tablet (40 180 tablet 1 12/03 tabletIndications: mg) by mouth two Bilateral leg edema times a day (in the morning and mid-afternoon). senna-docusate sodium Take 1 tablet by 60 tablet 4 12/31/19 20 (SENOKOT-S;PERICOLACE) mouth 2 times a day 8.6-50 MG as needed for tabletIndications: constipation Constipation, unspecified constipation type potassium chloride Take 1 tablet (10 90 tablet 3 12/31/2019 (KLOR-CON M10) 10 MEQ CR mEq) by mouth 2 tabletIndications: times a day Hypokalemia famotidine (PEPCID) 20 Take 1 tablet (20 180 tablet 1 2019 mg tabletIndications: mg) by mouth 2 times Gastroesophageal reflux a day disease without esophagitis dilTIAZem (CARDIZEM SR) Take 1 capsule (120 90 capsule 1 120 mg extended release mg) by mouth 1 time capsuleIndications: a day in the evening Migraine with aura and without status migrainosus, not intractable budesonide-formoterol Inhale 2 puffs 3 Inhaler 4 12/31/2019 (SYMBICORT) 80-4.5 orally every night mcg/puff at bedtime Shake inhalerIndications: well before using. History of COPD, History Rinse mouth after of asthma use. atorvaSTATin (LIPITOR) Take 1 tablet (20 90 tablet 4 201901/04/2021 20 mg tabletIndications: mg) by mouth 1 time Hyperlipidemia, per day unspecified hyperlipidemia type albuterol-ipratropium Inhale 1 unit-dose 1 box 4 201901/04/2021 (DUO-NEB) 2.5-0.5 mg/3 (3 mL) by mL inhalation nebulization 4 times solutionIndications: a day as needed for History of COPD, History bronchospasm, of asthma shortness of breath or wheezing albuterol HFA Inhale 1 puff orally 1 Inhaler 4 12/31/2019 (PROVENTIL,PROAIR,VENTOL 3 times a day Shake IN) 108 (90 Base) well before using. MCG/ACT inhalerIndications: History of COPD, History of asthma FLUoxetine (PROZAC) 20 Take 20 mg by mouth 0 mg capsule 1 time per day ALPRAZolam (XANAX) 0.5 Take 0.5 mg by mouth 0 mg tablet 3 times a day as needed for anxiety or nervousness ALPRAzolam (XANAX) 1 mg Take 1 mg by mouth 1 0 tablet time per day Chlorhexidine Gluconate Place 0.5 0 (PERIDEX MT) teaspoonsful into mouth 2 times a day traZODone (DESYREL) 100 Take 2 tablets (200 180 tablet 0 mg tabletIndications: mg) by mouth every Mood disorder (HCC) night at bedtime QUEtiapine fumarate Take 1 tablet (200 90 tablet 0 08/30/19 20 09/03/2020 (SEROQUEL-XR) 200 mg SR mg) by mouth 1 time tablet (24 per day hr)Indications: Mood disorder (HCC) buPROPion (WELLBUTRIN Take 1 tablet (150 90 tablet 0 2019 XL) 150 mg tablet (24 mg) by mouth 1 time hr)Indications: Mood per day disorder (HCC) magnesium 100 MG CAPS Take 1 tablet by 0 mouth 1 time per day calcium Take 1 tablet by 0 carbonate-vitamin D3 600 mouth 1 time a day mg-400 unit tablet with breakfast loratadine (CLARITIN) 10 Take 1 tablet (10 0 08/2016 mg tablet mg) by mouth 1 time per day Multiple Take 1 tablet by 30 tablet 0 07/23/2017 Vitamins-Minerals mouth 2 times a day (MULTIVITAL) tablet Oxygen therapy Inhale 3-4 L/min 0 orally. O2 therapy continuously. 3 L when sitting and 4 L when up walking. 3L at night. vitamin D3, Take 1 tablet (1,000 30 tablet 0 04/01/2020 cholecalciferol, 25 mcg Units) by mouth 1 (1000 unit) time per day tabletIndications: Rupture of right Achilles tendon, subsequent encounter, Post-operative state calcium citrate-vitamin Take 1 tablet by 0 2019 D (CITRACAL + VIT D) 315 mouth 2 times a day mg-250 unit with meals tabletIndications: Rupture of right Achilles tendon, subsequent encounter, Post-operative state oxyCODONE (OXY-IR) 5 mg Take 1 tablet (5 mg) 20 tablet 0 04/04/2020 tablet (immediate by mouth every 6 release)Indications: hours as needed for Rupture of right severe pain for up Achilles tendon, to 3 days subsequent encounter, Post-operative state acetaminophen (TYLENOL) Take 1-2 tablets 40 tablet 0 2019 500 mg (500-1,000 mg) by tabletIndications: mouth every 6 hours Rupture of right as needed for Achilles tendon, moderate pain subsequent encounter, Post-operative state Biotin 65894 MCG TABS Take 5 mg by mouth 2 0 times a day LORazepam (ATIVAN) 0.5 One tablet one hour 2 tablet 0 02/03 mg tabletIndications: prior to MRI, repeat Brain lesion x 1 prior if needed diclofenac (VOLTAREN) 1% Apply 2 g topically 150 g 12 gelIndications: 2 times a day Arthralgia, unspecified joint linaclotide (LINZESS) Take 1 capsule (145 90 capsule 1 12/30 145 mcg mcg) by mouth 1 time capsuleIndications: per day Constipation, unspecified constipation type cephalexin (KEFLEX) 500 Take for capsules by 4 capsule 3 mg capsuleIndications: mouth one hour prior Prophylactic measure to dental work documented as of this encounter Progress Notes Mallory Briones MD - 04/03/2020 10:10 AM CDT DAILY PROGRESS NOTE Alvina Storey is a 54yr old female admitted on 03/31/2020 5:26 AM. Impression / Plan Active Problems: Tendon rupture, Achilles Resolved Problems: * No resolved hospital problems. * # s/p surgical repair of rupture of R Achilles tendon -pain control suboptimal -restart home gabapentin 600 mg tid -adjust hydromorphone to 2 mg moderate pain, 4 mg severe pain, fentanyl for breakthrough pain -continue scheduled Tylenol -allergy to NSAIDs, tramadol -continue PT/OT -needs placement, case management following # History of DVT -on Xarelto # Hyperlipidemia -atorvastatin # Anxiety and depression -continue home quetiapine, bupropion, fluoxetine, alprazolam, trazodone # COPD -continue Symbicort, albuterol, duoneb, supplemental oxygen # History of migraine headaches -continue prophylactic diltiazem # Chronic LE edema -continue furosemide Await placement. Interval History HPI Continues to have significant pain. No BM yet. Tolerating a diet. Difficulty sleeping. No other events. Review of Systems Review of Systems Constitutional: Negative for activity change, appetite change, chills, diaphoresis and fever. HENT: Negative for sore throat. Respiratory: Negative for cough, chest tightness, shortness of breath and wheezing. Cardiovascular: Negative for chest pain, palpitations and leg swelling. Gastrointestinal: Negative for abdominal pain, constipation, diarrhea, nausea and vomiting. Genitourinary: Negative for urgency. Musculoskeletal: Positive for arthralgias and gait problem. Negative for myalgias. Skin: Negative for rash. Psychiatric/Behavioral: Negative for confusion, dysphoric mood and sleep disturbance. The patient isnot nervous/anxious. Physical Exam Vital Signs: Temp: 97.6 F (36.4 C) | BP: 124/77 | Pulse: 65 | Resp: 16 | Pain Ratin (out of 10) | Weight: (!) 153 kg (337 lb 4.9 oz) | O2 Device: Room Air O2 Flow Rate (L/min): 1 l/min | SpO2: 93 % Maximum Temperatures (last 24 hours) Temperature Maximum Max Temp 98.2 F (36.8 C) Intake and Output: 04/02 0700 - 04/03 0659 In: 700 [Oral:700] Out: 500 [Urine:500] Physical Exam Constitutional: She is oriented to person, place, and time. She appears well- developed and well-nourished. She appears distressed (appears uncomfortable, grimaces frequently, restless). HENT: Head: Normocephalic and atraumatic. Right Ear: External ear normal. Left Ear: External ear normal. Mouth/Throat: No oropharyngeal exudate. Neck: Neck supple. No JVD present. No tracheal deviation present. Cardiovascular: Normal rate, regular rhythm, normal heart sounds and intact distal pulses. No murmur heard. Pulmonary/Chest: Effort normal and breath sounds normal. No respiratory distress. She has no wheezes. She has no rales. Abdominal: Soft. Bowel sounds are normal. She exhibits no distension. There is no tenderness. There is no rebound. Musculoskeletal: She exhibits no edema. R foot in surgical dressings Neurological: She is alert and oriented to person, place, and time. No cranial nerve deficit. Skin: Skin is warm and dry. No rash noted. She is not diaphoretic. No erythema. No pallor. Psychiatric: She has a normal mood and affect. Nursing note and vitals reviewed. Labs Labs (Last day) No results found within the past day. Medical Decision making Medical Decision Making Holger Crespo MD - 04/02/2020 12:42 PM [facility] Progress note: Exam date: 04/02/2020 Hospital day # 1 Impression and Plan: # Rupture of right Achilles tendon, status post surgical repair. Management per primary podiatry including pain control and DVT prophylaxis. PT/OT. Follow case management for placement on Friday # History of DVT. Xarelto #Hyperlipidemia atorvastatin Anxiety and depression. Continue home medications Hypertensin. Continue home meds I discussed plan of care with patient Discussed with nursing staff Interval History: Complaining her pain is not controlled Changed Dilaudid to every 4 hours as needed Wean off fentanyl Review of system: Respiratory: No cough. Cardiovascular: No chest pain Abdomen: No abdominal pain Examination: General: No acute distress Respiratory: no retractions or cyanosis Cardiovascular: No JVD Abdomen: no abdominal distention Musculoskeletal: no edema Skin: No rash Kami Cárdenas DPM - 04/02/2020 11:18 AM CDT Foot and Ankle Surgery Progress Note Patient: Alvina Sesaytiste - 54yr female Date: 04/02/2020 Attending: Norbert Garrett DPM Hospital Stay: 1 Assessment 54yr year old female status post Right ankle flexor hallucis longus tendon transfer, gastrocnemius recession flap with Dr. Garrett on 03/31/2020 Plan - Inpatient pain control switched to PO dilaudid q4h and PRN IV Fentanyl q4h. She was encouraged to try to elevate and ice right lowe extremity as much as possible to help with pain control. Patient still awaiting transfer to SNF/Swing bed/TCU, likely [facility] on Friday, but still needs to be p rofiled out. Patient able to discharge once cleared by PT/OT and medicine team, pain is well controlled, and block has worn off. Outpatient Pain control was prescribed, DVT prophylaxis will consist of her at home Xarelto. Patient states she is able to tolerate oxycodone and tylenol, but no NSAIDs. Sheis to remain NWB to right lower extremity and keep her surgical dressing clean, dry and intact. Follow up appointment with Dr. Garrett in 2 weeks has been arranged. Discharge orders are in. - Pain control - Weightbearing status: NWB right lower extremity at all times - Dressing: Posterior fiberglass molded splint to right lower extremity, keep C/D/I until follow up - Diet: As tolerated - PT/OT - Incentive spirometry - Cares per primary team Subjective Seen this morning and is comfortable in bed. No acute distress. Still having significant pain to surgical site. Per nursing she has been requesting more prn IV Fentanyl, usually prior to PT/OT. Otherwise no other complaints. No changes in dressing, feels better today. Review of Systems ROS Constitution: Negative for chills and fever. Cardiovascular: Negative for chest pain. Respiratory: Negative for shortness of breath. Skin: Negative for color change and rash. Musculoskeletal: Negative for joint pain and joint swelling. Gastrointestinal: Negative for abdominal pain, constipation and diarrhea. Neurological: Negative for numbness. Psychiatric/Behavioral: Negative for altered mental status. Objective Current Vital Signs Temp: 97.7 F (36.5 C) BP: 116/74 Pulse: 61 O2 Device: Room Air O2 Flow Rate (L/min): 1 l/min Resp: 16 Pain Ratin (out of 10) Weight: (!) 153 kg (337 lb 4.9 oz) SpO2: 95 % Physical Exam Ortho Exam Foot Exam Right Lower Extremity Exam: Posterior fiberglass molded splint dressing is clean, dry and intact. No strikethrough. Patient ableto wiggle digits. Sensation has returned to digits and dorsum of foot. Capillary refill time is under 3 seconds to all digits on right. No calf pain or tenderness. Kami Lara DPM, PGY1 *This note was created, at least in part, with the use of Tip or Skip Voice Dictation System. Inadvertent typographical errors, due to software recognition problems, may still exist. Associated attestation - Chago Traore DPM - 04/03/2020 10:28 AM CDT I discussed the patient with the resident and personally interviewed and examined the patient. I verified in the medical record all resident documentation/findings, including history, physical exam, and medical decision making, and I agree with the resident's documentation. Kami Lara DPM - 04/01/2020 6:40 AM CDT Foot and Ankle Surgery Progress Note Patient: Alvina Jacobsen [facility] - 54yr female Date: 04/01/2020 Attending: Norbert Garrett DPM Hospital Stay: 0 Assessment 54yr year old female status post Right ankle flexor hallucis longus tendon transfer, gastrocnemius recession flap with Dr. Garrett on 03/31/2020 Plan - Splint was reinforced with additional 4-in David wrap to help with the "loose splint feeling" per patient, which she said helped and she appreciated. Patient still awaiting transfer to SNF/Swing bed/TCU, likely [facility]. Patient able to discharge once cleared by PT/OT and medicine team, pain iswell controlled, and block has worn off. Outpatient Pain control was prescribed, DVT prophylaxis will consist of her at home Xarelto. Patient states she is able to tolerate oxycodone and tylenol, but no NSAIDs. She is to remain NWB to right lower extremity and keep her surgical dressing clean, dry andintact. Follow up appointment with Dr. Garrett in 2 weeks has been arranged. Discharge orders are in. - Pain control - Weightbearing status: NWB right lower extremity at all times - Dressing: Posterior fiberglass molded splint to right lower extremity, keep C/D/I until follow up - Diet: As tolerated - PT/OT - Incentive spirometry - Cares per primary team Subjective Seen this morning and is comfortable in bed. No acute distress. Her pain has been well managed while in hospital. Sensation has returned to her digits and foot on right side. She states that her splint "feels loose near the heel", but denies any change in its position. No bleeding through her dressing occurred overnight. Denies any other complaints today. Review of Systems Review of Systems Constitution: Negative for chills and fever. Cardiovascular: Negative for chest pain. Respiratory: Negative for shortness of breath. Skin: Negative for color change and rash. Musculoskeletal: Negative for joint pain and joint swelling. Gastrointestinal: Negative for abdominal pain, constipation and diarrhea. Neurological: Negative for numbness. Psychiatric/Behavioral: Negative for altered mental status. Objective Current Vital Signs Temp: 97.8 F (36.6 C) BP: 117/75 Pulse: 91 O2 Device: NC - no humidity O2 Flow Rate (L/min): 2 l/min Resp: 16 Pain Ratin (out of 10) Weight: (!) 153 kg (337 lb 4.9 oz) SpO2: 90 % Physical Exam Ortho Exam Foot Exam Right Lower Extremity Exam: Posterior fiberglass molded splint dressing is clean, dry and intact. No strikethrough. Patient ableto wiggle digits. Sensation has returned to digits and dorsum of foot. Capillary refill time is under 3 seconds to all digits on right. No calf pain or tenderness. Kami Lara DPM, PGY1 *This note was created, at least in part, with the use of Tip or Skip Voice Dictation System. Inadvertent typographical errors, due to software recognition problems, may still exist. Associated attestation - Chago Traore DPM - 04/01/2020 6:53 AM CDT I discussed the patient with the resident and personally interviewed and examined the patient. I verified in the medical record all resident documentation/findings, including history, physical exam, and medical decision making, and I agree with the resident's documentation. Alvina Isbell, [facility] - 03/31/2020 6:01 PM CDT 03/31/2020 18:02 - Patient was seen by pharmacy. HOME MEDICATIONS have been reconciled and updated tomatch the patient's home usage. Medications added:none Medications removed:none Patient is aware we will substitute out symbicort & advair inhalers. Linzess(non formulary)& diclofenac gel are not needed while in hospital per patient. Medications Prior to Admission Medication Sig Dispense Refill Last Dose fluticasone-salmeterol (ADVAIR) 100-50 mcg/dose discus Inhale 1 puff orally 1 time per day [place] after use. 03/30/2020 at am busPIRone (BUSPAR) 30 mg tablet Take 30 mg by mouth 2 times a day 03/30/2020 at pm varenicline (CHANTIX) 1 mg tablet Take 1 tablet (1 mg) by mouth 2 times a day 180 tablet 1 03/30/2020 at pm ondansetron (ZOFRAN ODT) 4 mg dispersible tablet TAKE 1 TABLET BY MOUTH TWICE A DAY NEEDED FOR NAUSEA/VOMITING 60 tablet 1 03/31/2020 at am OXcarbazepine (TRILEPTAL) 600 mg tablet Take 600 mg by mouth 1 time a day in the evening 03/30/2020++they think possibly seizure disorder at PM gabapentin (NEURONTIN) 600 mg tablet Take 1 tablet (600 mg) by mouth 3 times a day 270 tablet 1 03/30/2020 at pm baclofen (LIORESAL) 10 mg tablet TAKE 1 TABLET TWICE DAILY NEEDED 60 tablet 5 03/30/2020 at am rivaroxaban (XARELTO) 20 mg tablet Take 1 tablet (20 mg) by mouth every night at bedtime Indications: History of Pulmonary Embolism 10 tablet 0 03/27/2020 at pm furosemide (LASIX) 40 mg tablet Take 1 tablet (40 mg) by mouth two times a day (in the morning and mid-afternoon). 180 tablet 1 03/30/2020 at am senna-docusate sodium (SENOKOT-S;PERICOLACE) 8.6-50 MG tablet Take 1 tablet by mouth 2 times a day as needed for constipation 60 tablet 4 Past Week at Unknown time potassium chloride (KLOR-CON M10) 10 MEQ CR tablet Take 1 tablet (10 mEq) by mouth 2 times a day90 tablet 3 03/30/2020 at pm famotidine (PEPCID) 20 mg tablet Take 1 tablet (20 mg) by mouth 2 times a day 180 tablet 1 03/30/2020 at pm dilTIAZem (CARDIZEM SR) 120 mg extended release capsule Take 1 capsule (120 mg) by mouth 1 time a day in the evening 90 capsule 1 03/30/2020++for migraine prevention++ at pm budesonide-formoterol (SYMBICORT) 80-4.5 mcg/puff inhaler Inhale 2 puffs orally every night at bedtime Shake well before using. Rinse mouth after use. 3 Inhaler 4 03/30/2020 at PM atorvaSTATin (LIPITOR) 20 mg tablet Take 1 tablet (20 mg) by mouth 1 time per day 90 tablet 4 03/30/2020 at am albuterol-ipratropium (DUO-NEB) 2.5-0.5 mg/3 mL inhalation solution Inhale 1 unit-dose (3 mL) bynebulization 4 times a day as needed for bronchospasm, shortness of breath or wheezing (Patient taking differently: Inhale 1 unit-dose by nebulization 4 times a day as needed for bronchospasm, shortness of breath or wheezing She uses bid scheduled AM & 1600 daily PLUS an additional bidprn if needed) 1 box 4 03/30/2020 at Unknown time albuterol HFA (PROVENTIL,PROAIR,VENTOLIN) 108 (90 Base) MCG/ACT inhaler Inhale 1 puff orally 3 times a day Shake well before using. 1 Inhaler 4 03/30/2020 at pm acetaminophen (TYLENOL) 325 mg tablet Take 2 tablets (650 mg) by mouth every 6 hours as needed for mild pain 30 tablet 0 03/30/2020 at Unknown time FLUoxetine (PROZAC) 20 mg capsule Take 20 mg by mouth 1 time per day 03/26/2020 at am ALPRAZolam (XANAX) 0.5 mg tablet Take 0.5 mg by mouth 3 times a day as needed for anxiety or nervousness 03/27/2020 at Unknown time ALPRAzolam (XANAX) 1 mg tablet Take 1 mg by mouth 1 time per day 03/29/2020 at am Chlorhexidine Gluconate (PERIDEX MT) Place 0.5 teaspoonsful into mouth 2 times a day 03/31/2020at am traZODone (DESYREL) 100 mg tablet Take 2 tablets (200 mg) by mouth every night at bedtime 180 tablet 0 03/30/2020 at hs QUEtiapine fumarate (SEROQUEL-XR) 200 mg SR tablet (24 hr) Take 1 tablet (200 mg) by mouth 1 time per day 90 tablet 0 03/30/2020 at pm buPROPion (WELLBUTRIN XL) 150 mg tablet (24 hr) Take 1 tablet (150 mg) by mouth 1 time per day 90 tablet 0 03/30/2020 at am magnesium 100 MG CAPS Take 1 tablet by mouth 1 time per day Taking calcium carbonate-vitamin D3 600 mg-400 unit tablet Take 1 tablet by mouth 1 time a day with breakfast 03/27/2020 at am loratadine (CLARITIN) 10 mg tablet Take 1 tablet (10 mg) by mouth 1 time per day 0 03/30/2020 atam Multiple Vitamins-Minerals (MULTIVITAL) tablet Take 1 tablet by mouth 2 times a day 30 tablet 0Taking Oxygen therapy Inhale 3-4 L/min orally. O2 therapy continuously. 3 L when sitting and 4 L when up walking. 3L at night. 03/30/2020 at Unknown time Biotin 66590 MCG TABS Take 5 mg by mouth 2 times a day ++not needed while in hospital LORazepam (ATIVAN) 0.5 mg tablet One tablet one hour prior to MRI, repeat x 1 prior if needed 2 tablet 0 diclofenac (VOLTAREN) 1% gel Apply 2 g topically 2 times a day 150 g 12 ++not needed while in hospital linaclotide (LINZESS) 145 mcg capsule Take 1 capsule (145 mcg) by mouth 1 time per day 90 capsule 1 +++not needed while in hospital cephalexin (KEFLEX) 500 mg capsule Take for capsules by mouth one hour prior to dental work 4 capsule 3 Alvina Isbell RPh documented in this encounter Plan of Treatment Date Type Specialty Care Team Description 04/06/2020 Office Visit Podiatry Norbert Garrett , DPM [address] [facility] [place] [address] [phone] 04/24/2020 Office Visit Neurology Steve Acosta MD [address] [place] [address] [phone] 05/18/2020 Office Visit Orthopedics Tarik Lozano MD [address] [place] [address] [phone] documented as of this encounter Implants Implanted Type Area Nut Process Helper Device Shelf Model / Identifier Expiration Serial / Lot Date Screw [employer] Biocomp6.25x15 N Ar-1562bc Ea1 - [id number] Orth o Right: ARTHREX 06/03/2023 [id number] / Implanted: 03/31/2020 by Norbert Garrett DPM at [facility] (Quantity not on file) Other ANKLE / [id number] Screw [employer] Biocomp6.25x15 N Ar-1562bc Ea1 - [id number] Orth o Right: ARTHREX 01/31/2021 [id number] / Implanted: 03/31/2020 by Norbert Garrett DPM at [facility] (Quantity not on file) Other ANKLE / [id number] Cmnt Bone Simplex P 1/2 Dose N 6188-1-010 Ca10/Ea - Sn/A R ight: SHAVON 04/02/2019 6188-1-001 / Implanted: Qty: 1 on 03/24/2017 by Torres Saini MD at [facility] KNEE N/A / [id number] Knee Tib Base Uni Rm Biom Sza N [id number] Ea - Sn/A Right: B IOMET 09/06/2026 [id number] / Implanted: Qty: 1 on 03/24/2017 by Torres Saini MD at [facility] KNEE N/A / [id number] Knee Fem [place] N [id number] Ea - Sn/A Right: BIOMET 01/11/2027 [id number] / Implanted: Qty: 1 on 03/24/2017 by Torres Saini MD at [facility] KNEE N/A / [id number] Knee Tib Insrt Biom Rt 6mm N [id number] Ea - Sn/A Right: B IOMET 02/11/2022 [id number] / Implanted: Qty: 1 on 03/24/2017 by Torres Saini MD at [facility] KNEE N/A / [id number] Cmnt Bone Simplex P 1/2 Dose N 6188-1-010 Ca10/Ea - Sn/A L eft: SHAVON 04/03/2019 6188-1-001 / Implanted: Qty: 1 on 03/24/2017 by Torres Saini MD at [facility] KNEE N/A / [id number] Knee Tib Base Uni Lm Biom [facility] N [id number] Ea - Sn/A Left: B IOMET 01/02/2027 [id number] / Implanted: Qty: 1 on 03/24/2017 by Torres Saini MD at [facility] KNEE N/A / [id number] Knee Fem [place] N [id number] Ea - Sn/A Left: BIOMET 12/27/2026 [id number] / Implanted: Qty: 1 on 03/24/2017 by Torres Saini MD at [facility] KNEE N/A / [id number] Knee Tib Insrt Biom Lft 4mm N [id number] Ea - Sn/A Left: BIOMET 07/04/2020 [id number] / Implanted: Qty: 1 on 03/24/2017 by Torres Saini MD at [facility] KNEE N/A / [id number] documented as of this encounter Procedures Procedure Name Priority Date/Time Associated Comments Diagnosis SARS-COV-2 RNA, STAT 04/03/2020 4:00 Results for this QUALITATIVE REAL-TIME PM CDT proced ure are in RT-PCR the results section. REPAIR TENDON 03/31/2020 6:27 Rupture of right ACHILLES AM CDT Achilles tendon, subsequent encounter Special Needs *X*--bmi 53--oxygen 3l @noc documented in this encounter Results SARS-COV-2 RNA, QUALITATIVE REAL-TIME RT-PCR (04/03/2020 4:00 PM CDT) SARS CoV RNA, RT Not Detected Not Detected [facility] Specimen Respiratory Narrative Performed At This test was performed by polymerase chain reaction ( PCR) [facility] on the [employer] MDX instrument. This assay is for in vitro diagnostic use under FDA Emergency Use Authorization only. Optimal performance of this test requires appropriate specimen collection, storage, and transport to the [facility] site. Detection of SARS-CoV-2 RNA may be affected by sample collection methods, patient factors (eg, presence of symptoms), and/or stage of infection. False-negative results may arise from degradation of v iral RNA during shipping/storage. Results should be interpreted by a trained professiona l in conjunction with the patient s history and clinical signs and symptoms, and epidemiological risk factors. Negative (Not Detected) results do not preclude infect ion with the SARS-CoV-2 virus and should not be the sole b asis of patient treatment/management or public health decis ion. Follow up testing should be performed according to the current CDC recommendations. Performing Organization Address City/State/Zipcode Phone Number [facility] [address] [place] [address] [phone] documented in this encounter Visit Diagnoses Diagnosis Post-operative state - Primary Other postprocedural status Rupture of right Achilles tendon, subseq uent encounter Tendon rupture, Achilles Other ankle sprain and strain documented in this encounter Discharge Diagnoses Not on filedocumented in this encounter Administered Medications Medication Order MAR Action Action Date Dose Rate Site acetaminophen (TYLENOL) tablet Given 04/04/2020 6:24 AM CDT 650 mg 650 mg 650 mg, Oral, Every six hours, First dose on Fri03/31/20 at 1200, Until Discontinued, Post - Op, Alternate with tramadol (ULTRAM); Adult patients: Total dose of acetaminophen from all acetaminophen containing products should not exceed 4 grams (4000 mg) per day. Pediatric Patients 0 - 3 months: Maximum of 60 mg/kg/24 hours of acetaminophen. Pediatric Patients older than 3 months: Maximum of 75 mg/kg/24 hours of acetaminophen (Never exceeding 4 grams/day)., Given 04/04/2020 12:00 AM CDT 650 mg Given 04/03/2020 5:56 PM CDT 650 mg ALPRAzolam (XANAX) tablet 1 mg Given 04/04/2020 8:16 AM CDT 1 mg 1 mg, Oral, DAILY, First dose on 04/01/20 at 0900, Until Discontinued Given 04/03/2020 9:12 AM CDT 1 mg Given 04/02/2020 9:40 AM CDT 1 mg atorvaSTATin (LIPITOR) tablet 20 mg Given 04/03/2020 8:55 PM CDT 20 mg 20 mg, Oral, DAILY, First dose on Fri04/01/20 at 0900, Until Discontinued Given 04/02/2020 7:43 PM CDT 20 mg Given 04/01/2020 8:43 PM CDT 20 mg benzocaine-menthol (CEPACOL w/ BENZOCAIN E) lozenge 1 lozenge 1 lozenge, Mouth/Throat, Every four hour s prn, Starting Fri03/31/20 at 1059, Until Discontinued, sore throat, other (Specify), throat irr itation, Post - Op, Exception: Patients with dysphagia, radi ation mucositis/esophagitis or without a gag reflex., bisacodyl (DULCOLAX) enteric coated tablet 5 Given 0 4:59 PM CDT 5 mg mg 5 mg, Oral, Two times a day prn, Starting Fri03/31/20 at 1059, Until Discontinued, constipation, Post - Op, SECOND choice or per patient preference, bisacodyl (DULCOLAX) suppository 10 mg 10 mg, Rectal, One time a day prn, Starting Fri 0 at 1059, Until Discontinued, constipation, Post - Op, T HIRD choice or per patient preference. If patient cannot take oral medications, use first for co nstipation., buPROPion (WELLBUTRIN XL) tablet (24 hr) 150 Given 8:56 PM CDT 150 mg mg 150 mg, Oral, Bedtime, First dose on Fri03/31/20 at 2100, Until Discontinued, Tablet should not be crushed or chewed., Given 04/02/2020 7:44 PM CDT 150 mg Given 04/01/2020 8:43 PM CDT 150 mg busPIRone (BUSPAR) tablet 30 mg Given 04/04/2020 8:16 AM CDT 30 mg 30 mg, Oral, Two times a day, First dose on Fri03/31/20 at 2100, Until Discontinued Given 04/03/2020 8:56 PM CDT 30 mg Given 04/03/2020 9:12 AM CDT 30 mg dilTIAZem (CARDIZEM CD) extended release Given 04/03/2020 8:57 PM CDT 120 mg capsule 120 mg 120 mg, Oral, Every evening, First dose on Fri03/31/20 at 2100, Until Discontinued, Swallow capsule whole. Do not crush, chew or open., Given 04/02/2020 7:45 PM CDT 120 mg Given 04/01/2020 8:44 PM CDT 120 mg famotidine (PEPCID) tablet 20 mg Given 04/04/2020 8:16 AM CDT 20 mg 20 mg, Oral, Two times a day, First dose on Fri03/31/20 at 2100, Until Discontinued Given 04/03/2020 8:57 PM CDT 20 mg Given 04/03/2020 9:12 AM CDT 20 mg fentaNYL 100 mcg/2 mL preservative free Given 04/03/2020 8:51 P M CDT 50 mcg injection solution 50 mcg 50 mcg, IV, Every four hours prn, Starting 04/03/20 at 0904, Until Discontinued, other (Specify), breakthrough pain, 1 mL, Post - Op, If pain unrelieved by Dilaudid, Do not give Dilaudid PO and Fentanyl IV at the same time, FLUoxetine (PROzac) capsule 20 mg Given 04/04/2020 8:15 AM CDT 20 mg 20 mg, Oral, DAILY, First dose on 04/01/20 at 0900, Until Discontinued Given 04/03/2020 9:12 AM CDT 20 mg Given 04/02/2020 9:40 AM CDT 20 mg fluticasone-vilanterol (BREO ELLIPTA) 200-25 Given 08/2019 6:13 AM CDT 1 puff mcg/puff inhaler 1 puff 1 puff, Inhalation, Daily, First dose on 04/02/20 at 0600, Until Discontinued, Rinse mouth after use. ++*breo-ellipta 200/25 1 puff daily* at hs substituted for both advair 100/50 1 puff daily AM and symbicort 80mcg/4.5mcg 2 puffs daily at hs++, Given 04/03/2020 6:20 AM CDT 1 puff Given 04/02/2020 6:27 AM CDT 1 puff furosemide (LASIX) tablet 40 mg Given 04/04/2020 8:16 AM CDT 40 mg 40 mg, Oral, Two times a day diuretic, First dose on 04/01/20 at 0800, Until Discontinued Given 04/03/2020 2:50 PM CDT 40 mg Given 04/03/2020 10:23 AM CDT 40 mg gabapentin (NEURONTIN) capsule 600 mg Given 04/04/2020 8:16 AM CDT 600 mg 600 mg, Oral, Three times a day, First dose on 04/03/20 at 0905, Until Discontinued Given 04/03/2020 8:58 PM CDT 600 mg Given 04/03/2020 2:50 PM CDT 600 mg HYDROmorphone (DILAUDID) tablet 2 mg Given 04/03/2020 6:03 AM CDT 2 mg 2 mg, Oral, Every four hours prn, Starting 04/02/20 at 1035, Until Discontinued, moderate pain, Hold if systolic blood pressure less than 100 or patient is somnolent or drowsy, Given 04/03/2020 12:41 AM CDT 2 mg Given 04/02/2020 7:34 PM CDT 2 mg HYDROmorphone (DILAUDID) tablet 4 mg Given 04/04/2020 10:13 AM CDT 4 mg 4 mg, Oral, Every four hours prn, Starting 04/03/20 at 0903, Until Discontinued, severe pain Given 04/04/2020 6:24 AM CDT 4 mg Given 04/03/2020 2:52 PM CDT 4 mg loratadine (CLARITIN) tablet 10 mg Given 04/04/2020 8:15 AM CDT 10 mg 10 mg, Oral, DAILY, First dose on 04/01/20 at 0900, Until Discontinued Given 04/03/2020 9:12 AM CDT 10 mg Given 04/02/2020 9:40 AM CDT 10 mg magnesium hydroxide (MILK OF MAGNESIA) o ral suspension 30 mL 30 mL, Oral, Two times a day prn, Starti ng Fri03/31/20 at 1059, Until Discontinued, constipation, 30 mL, Post - Op, FIRST ch oice or per patient preference. Exception: Nephrology/renal patients, ondansetron (ZOFRAN ODT) dispersible tablet 4 Given 10:56 AM CDT 4 mg mg 4 mg, Oral, Every six hours prn, Starting Fri03/31/20 at 0914, Until Discontinued, nausea, vomiting, For partial dose (other than a full tablet), split tablet (wearing gloves) just prior to administration. Gently remove from package by peeling open immediately prior to administration. DO NOT push tablet through package. Once dose is placed in mouth it will dissolve quickly., Given 04/02/2020 3:49 PM CDT 4 mg Given 04/01/2020 5:56 PM CDT 4 mg ondansetron (ZOFRAN) tablet 4 mg Given 04/01/2020 10:42 AM CDT 4 mg 4 mg, Oral, PRN per parameter, Starting Fri03/31/20 at 0846, Until Discontinued, nausea, vomiting OXcarbazepine (TRILEPTAL) tablet 600 mg Given 04/03/2020 8:58 PM CDT 600 mg 600 mg, Oral, Every evening, First dose on Fri03/31/20 at 2100, Until Discontinued Given 04/02/2020 7:46 PM CDT 600 mg Given 04/01/2020 8:41 PM CDT 600 mg polyethylene glycol (MIRALAX) packet 1 Given 04/04/2020 8:16 AM CDT 1 packet packet 1 packet, Oral, Daily, First dose on 04/01/20 at 0900, Until Discontinued, Post - Op, Hold if 2 loose stools occur in the last 24 hours., Given 04/03/2020 9:13 AM CDT 1 packet Given 04/02/2020 9:40 AM CDT 1 packet QUEtiapine (SEROQUEL) tablet 200 mg Given 04/03/2020 8:59 PM CDT 200 mg 200 mg, Oral, Daily, First dose on 04/01/20 at 0900, Until Discontinued, seroquel immediate release substituted for XR while in hospital, Given 04/02/2020 7:47 PM CDT 200 mg Given 04/01/2020 8:41 PM CDT 200 mg rivaroxaban (XARELTO) tablet 20 mg Given 04/03/2020 8:59 PM CDT 20 mg 20 mg, Oral, One time a day with evening meal, First dose on Fri03/31/20 at 2115, Until Discontinued, If medication given via a feeding tube, feeding tube MUST be gastric. If feeding tube is placed in the small intestine, notify provider or pharmacy. , Given 04/02/2020 7:47 PM CDT 20 mg Given 04/01/2020 8:40 PM CDT 20 mg senna-docusate sodium Given 04/04/2020 8:16 AM CDT 2 tablets (SENOKOT-S;PERICOLACE) tablet 2 tablet 2 tablet, Oral, Two times a day, First dose on Fri04/03/20 at 2100, Until Discontinued, Post - Op, Hold if 2 loose stools occur in the last 24 hours., Given 04/03/2020 9:00 PM CDT 2 tablets sodium chloride 0.9% flush (adult) 10 mL Given 04/04/2020 8:16 AM CDT 10 mL 10 mL, IV, Two times a day and prn, First dose on Fri03/31/20 at 2100, Until Discontinued, 10 mL, Post - Op, Flush IV line as scheduled and as often as necessary before and after meds., Given 04/03/2020 8:54 PM CDT 10 mL Given 04/03/2020 10:27 AM CDT 10 mL traZODone (DESYREL) tablet 200 mg Given 04/03/2020 9:00 PM CDT 200 mg 200 mg, Oral, Bedtime, First dose on Fri03/31/20 at 2100, Until Discontinued Given 04/02/2020 7:48 PM CDT 200 mg Given 04/01/2020 8:42 PM CDT 200 mg varenicline (CHANTIX) tablet 1 mg Given 04/04/2020 8:15 AM CDT 1 mg 1 mg, Oral, Two times a day, First dose on Fri03/31/20 at 2100, Until Discontinued Given 04/03/2020 9:01 PM CDT 1 mg Given 04/03/2020 9:12 AM CDT 1 mg Medication Order MAR Action Action Date Dose Rate Site fentaNYL 100 mcg/2 mL Given 04/02/2020 9:37 AM CDT 50 mcg preservative free injection solution 50 mcg 50 mcg, IV, Every one hour prn, Starting Fri03/31/20 at 1059, Until Fri04/02/20 at 1031, severe pain, 1 mL, Post - Op, If pain unrelieved by oxyCODONE, Given 04/01/2020 8:54 PM CDT 50 mcg Given 04/01/2020 3:16 PM CDT 50 mcg fentaNYL 100 mcg/2 mL preservative free Given 03/31/2020 10:07 A M CDT 50 mcg injection solution 50 mcg 50 mcg, IV, Every five minutes prn, 6 doses, Starting Fri03/31/20 at 0845, Until Fri03/31/20 at 1048, other (Specify), moderate pain scale 4-6 or severe pain above 7 if hydromorphone not ordered (max dose of 300 mcg), 1 mL, PACU, Use only anesthesia's orders for moderate or severe pain while in PACU or recovery care, Given 03/31/2020 9:32 AM CDT 50 mcg fentaNYL 100 mcg/2 mL preservative free Given 04/02/2020 5:52 P M CDT 50 mcg injection solution 50 mcg 50 mcg, IV, Every four hours prn, Starting Fri04/02/20 at 1030, Until Fri04/03/20 at 0905, severe pain, 1 mL, Post - Op, If pain unrelieved by Dilaudid, Do not give Dilaudid PO and Fentanyl IV at the same time, fluticasone-vilanterol (BREO ELLIPTA) 200-25 Given 9:34 PM CDT 1 puff mcg/puff inhaler 1 puff 1 puff, Inhalation, Bedtime, First dose on Fri03/31/20 at 2100, Until Discontinued, Rinse mouth after use. ++*breo-ellipta 200/25 1 puff daily* at hs substituted for both advair 100/50 1 puff daily AM and symbicort 80mcg/4.5mcg 2 puffs daily at hs++, fluticasone-vilanterol (BREO ELLIPTA) 200-25 Given 4:09 PM CDT 1 puff mcg/puff inhaler 1 puff 1 puff, Inhalation, Bedtime, First dose on Fri04/01/20 at 1800, Until Discontinued, Rinse mouth after use. ++*breo-ellipta 200/25 1 puff daily* at hs substituted for both advair 100/50 1 puff daily AM and symbicort 80mcg/4.5mcg 2 puffs daily at hs++, HYDROmorphone (DILAUDID) injection solution Given 03/05 10:26 AM CDT 0.5 mg (conc: 0.5 mg/0.5mL) 0.5 mg 0.5 mg, IV, Every five minutes prn, 4 doses, Starting Fri03/31/20 at 0845, Until Fri03/31/20 at 1048, other (Specify), severe pain scale 7 or above, or moderate pain not relieved by fentaNYL (max dose of 2 mg), 0.5 mL, PACU, Use only anesthesia's orders for moderate or severe pain while in PACU or recovery care, Given 03/31/2020 10:14 AM CDT 0.5 mg Given 03/31/2020 9:49 AM CDT 0.5 mg HYDROmorphone (DILAUDID) tablet 2 mg Given 04/02/2020 6:17 AM CDT 2 mg 2 mg, Oral, Every six hours prn, Starting 04/01/20 at 1150, Until 04/02/20 at 1031, moderate pain, Hold if systolic blood pressure less than 100 or patient is somnolent or drowsy, Given 04/01/2020 5:57 PM CDT 2 mg lactated ringers IV solution New Bag 03/31/2020 8:25 AM CDT IV, at 25 mL/hr, Continuous, Starting Fri03/31/20 at 0645, Until Fri03/31/20 at 0923, 1,000 mL, Pre - Op New Bag/Tubing 03/31/2020 6:45 AM CDT 25 mL/hr lactated ringers IV solution Already Infusing 03/31/2020 9:24 AM CDT 125 mL/hr IV, at 125 mL/hr, Continuous, Starting Fri03/31/20 at 0905, Until Fri03/31/20 at 1048, 1,000 mL, PACU, TKO current fluids if patient is going to Day Unit / ARU and tolerating PO fluids without nausea., ondansetron (ZOFRAN) injection solution 4 mg Given 03/31/2020 9:45 AM CDT 4 mg 4 mg, IV, Now, 1 dose, Fri03/31/20 at 0940, 2 mL, PACU, If preference is to further dilute for IV administration: First draw up patient-specific dose, then dilute to 10 mL with 0.9% sodium chloride., oxyCODONE (OXY-IR) tablet 5-10 mg Given 04/01/2020 12:50 AM CDT 10 mg 5-10 mg, Oral, Every four hours prn, Starting Fri03/31/20 at 1059, Until 04/01/20 at 1153, moderate pain, severe pain, Post - Op, For patients with MODERATE pain, pain rating of 4-6, give oxyCODONE 5 mg every 4 hours PRN. For patients with SEVERE pain, pain rating of 7-10, give oxyCODONE 10 mg every 4 hours PRN., Given 03/31/2020 5:58 PM CDT 10 mg Given 03/31/2020 12:18 PM CDT 10 mg scopolamine Applied 03/31/2020 6:48 AM 1 patch Behi nd Left Ear (TRANSDERM-SCOP) patch 1 CDT Transdermal patch 1 patch, Transdermal, One time, 1 dose, Fri03/31/20 at 0720, Administer over 3 Days senna-docusate sodium Given 04/02/2020 7:47 PM CDT 1 tablet (SENOKOT-S;PERICOLACE) tablet 1 tablet 1 tablet, Oral, Two times a day, First dose on Fri03/31/20 at 2100, Until Discontinued, Post - Op, Hold if 2 loose stools occur in the last 24 hours., Given 04/02/2020 9:40 AM CDT 1 tablet Given 04/01/2020 8:44 PM CDT 1 tablet documented in this encounter
[2020-04-19] MEDS: Potassium Chloride 10 MEQ Tab.ER PO SCH ×2 (09:46→20:45)
[2020-04-19] MEDS: busPIRone 15 MG Tab PO SCH ×2 (09:46→20:42)
[2020-04-19] MEDS: Furosemide 40 MG Tab PO SCH ×2 (09:46→14:25)
[2020-04-19] MEDS: Clotrimazole 1% Crm 15 GM Tube TOP SCH ×2 (09:47→20:46)
[2020-04-19] MEDS: Famotidine 20 MG Tab PO SCH ×2 (09:47→20:43)
[2020-04-19] MEDS: Loratadine 10 MG Tab PO SCH (09:47)
[2020-04-19] MEDS: Formoterol/Mometasone 100-5 MCG 8.8 GM Inhaler IH SCH ×2 (09:47→20:44)
[2020-04-19] MEDS: Diclofenac Sodium 1% Gel 100 GM Tube TOP SCH ×2 (09:48→20:47)
[2020-04-19] MEDS: FLUoxetine 20 MG Cap PO SCH (09:48)
[2020-04-19] MEDS: Acetaminophen 500 MG Tab PO SCH ×3 (09:48→20:45)
[2020-04-19] MEDS: Gabapentin 600 MG Tab PO SCH ×3 (09:51→20:55)
[2020-04-19] MEDS: HYDROmorphone 2 MG Tab PO PRN ×3 (09:52→22:40)
[2020-04-19] MEDS: ALPRAZolam 1 MG Tab PO SCH (09:52)
[2020-04-19] MEDS: buPROPion 150 MG Tab.ER PO SCH (20:42)
[2020-04-19] MEDS: atorvaSTATin 20 MG Tab PO SCH (20:43)
[2020-04-19] MEDS: Diltiazem 120 MG Cap.CD PO SCH (20:43)
[2020-04-19] MEDS: QUEtiapine 100 MG Tab PO SCH (20:46)
[2020-04-19] MEDS: traZODone 100 MG Tab PO SCH (20:48)
[2020-04-19] MEDS: OXcarbazepine 300 MG Tab PO SCH (20:48)
[2020-04-20] MEDS: Gabapentin 600 MG Tab PO SCH ×3 (09:00→21:49)
[2020-04-20] MEDS: Furosemide 40 MG Tab PO SCH ×2 (09:00→14:29)
[2020-04-20] MEDS: busPIRone 15 MG Tab PO SCH ×2 (09:01→21:31)
[2020-04-20] MEDS: Famotidine 20 MG Tab PO SCH ×2 (09:01→21:35)
[2020-04-20] MEDS: Potassium Chloride 10 MEQ Tab.ER PO SCH ×2 (09:02→21:34)
[2020-04-20] MEDS: Clotrimazole 1% Crm 15 GM Tube TOP SCH ×2 (09:02→21:33)
[2020-04-20] MEDS: Formoterol/Mometasone 100-5 MCG 8.8 GM Inhaler IH SCH ×2 (09:03→21:33)
[2020-04-20] MEDS: Loratadine 10 MG Tab PO SCH (09:03)
[2020-04-20] MEDS: FLUoxetine 20 MG Cap PO SCH (09:04)
[2020-04-20] MEDS: Acetaminophen 500 MG Tab PO SCH ×3 (09:05→21:36)
[2020-04-20] MEDS: Diclofenac Sodium 1% Gel 100 GM Tube TOP SCH ×2 (09:06→21:37)
[2020-04-20] MEDS: HYDROmorphone 2 MG Tab PO PRN ×3 (09:07→21:50)
[2020-04-20] MEDS: ALPRAZolam 1 MG Tab PO SCH (09:07)
[2020-04-20] MEDS: Diltiazem 120 MG Cap.CD PO SCH (21:31)
[2020-04-20] MEDS: atorvaSTATin 20 MG Tab PO SCH (21:34)
[2020-04-20] MEDS: QUEtiapine 100 MG Tab PO SCH (21:35)
[2020-04-20] MEDS: OXcarbazepine 300 MG Tab PO SCH (21:36)
[2020-04-20] MEDS: traZODone 100 MG Tab PO SCH (21:36)
[2020-04-20] MEDS: buPROPion 150 MG Tab.ER PO SCH (21:38)
[2020-04-21] MEDS: HYDROmorphone 2 MG Tab PO PRN ×3 (05:31→21:42)
[2020-04-21] MEDS: Furosemide 40 MG Tab PO SCH ×2 (10:26→14:35)
[2020-04-21] MEDS: Loratadine 10 MG Tab PO SCH (10:27)
[2020-04-21] MEDS: Formoterol/Mometasone 100-5 MCG 8.8 GM Inhaler IH SCH ×2 (10:27→21:34)
[2020-04-21] MEDS: busPIRone 15 MG Tab PO SCH ×2 (10:27→21:31)
[2020-04-21] MEDS: Diclofenac Sodium 1% Gel 100 GM Tube TOP SCH ×2 (10:31→21:39)
[2020-04-21] MEDS: Clotrimazole 1% Crm 15 GM Tube TOP SCH ×2 (10:32→21:33)
[2020-04-21] MEDS: Acetaminophen 500 MG Tab PO SCH ×3 (10:33→21:39)
[2020-04-21] MEDS: Potassium Chloride 10 MEQ Tab.ER PO SCH ×2 (10:33→21:34)
[2020-04-21] MEDS: FLUoxetine 20 MG Cap PO SCH (10:34)
[2020-04-21] MEDS: Famotidine 20 MG Tab PO SCH ×2 (10:35→21:37)
[2020-04-21] MEDS: Gabapentin 600 MG Tab PO SCH ×3 (10:53→21:35)
[2020-04-21] MEDS: ALPRAZolam 1 MG Tab PO SCH (10:53)
[2020-04-21] MEDS: Diltiazem 120 MG Cap.CD PO SCH (21:32)
[2020-04-21] MEDS: atorvaSTATin 20 MG Tab PO SCH (21:35)
[2020-04-21] MEDS: QUEtiapine 100 MG Tab PO SCH (21:38)
[2020-04-21] MEDS: traZODone 100 MG Tab PO SCH (21:38)
[2020-04-21] MEDS: OXcarbazepine 300 MG Tab PO SCH (21:39)
[2020-04-21] MEDS: buPROPion 150 MG Tab.ER PO SCH (21:40)
[2020-04-22] MEDS: Furosemide 40 MG Tab PO SCH ×2 (09:22→13:32)
[2020-04-22] MEDS: FLUoxetine 20 MG Cap PO SCH (09:23)
[2020-04-22] MEDS: busPIRone 15 MG Tab PO SCH ×2 (09:24→20:13)
[2020-04-22] MEDS: Loratadine 10 MG Tab PO SCH (09:24)
[2020-04-22] MEDS: Clotrimazole 1% Crm 15 GM Tube TOP SCH ×2 (09:27→20:14)
[2020-04-22] MEDS: Formoterol/Mometasone 100-5 MCG 8.8 GM Inhaler IH SCH ×2 (09:27→20:14)
[2020-04-22] MEDS: Potassium Chloride 10 MEQ Tab.ER PO SCH ×2 (09:28→20:15)
[2020-04-22] MEDS: Acetaminophen 500 MG Tab PO SCH ×3 (09:29→20:16)
[2020-04-22] MEDS: Famotidine 20 MG Tab PO SCH ×2 (09:29→20:15)
[2020-04-22] MEDS: Diclofenac Sodium 1% Gel 100 GM Tube TOP SCH ×2 (09:30→20:16)
[2020-04-22] MEDS: Gabapentin 600 MG Tab PO SCH ×3 (09:43→20:15)
[2020-04-22] MEDS: ALPRAZolam 1 MG Tab PO SCH (09:48)
--- NOTE | 2020-04-22 11:41 | PCM.PN ---
- General Info Date of Service: 04/22/20 Subjective Update: Alvina had rough last night, having more pain with her left sciatica, wondered about a Lidocaine patch. States she has been doing more then last week with therapies and noticed more pain with the activity but is still taking about 3 Dilaudid a day, 4 per day is ordered. She had her dose decreased to 2 mg from 4 mg since Prozac was increased; she doesn't want to go back up on the Dilaudid. No shortness of breath, has chronic cough with her COPD. Using her flutter valve and getting a lot of productive sputum up in the mornings. No nausea or vomiting. Having bowel movements every other day. Seeing [facility] on Friday for her counseling appointment at 9 am. - Patient Data Vitals - Most Recent: Last Vital Signs Temp 97.8 F 04/22/20 08:00 Pulse 67 04/22/20 08:00 Resp 18 04/22/20 08:00 BP 148/93 H 04/22/20 08:00 Pulse Ox 96 04/22/20 08:00 Weight - Most Recent: 367 lb 4.8 oz Med Orders - Current: Current Medications Acetaminophen (Tylenol Extra Strength) 500 - 1,000 mg PO Q6H PRN PRN Reason: Pain Last Admin: 04/06/20 21:22 Dose: 1,000 mg Documented by: Acetaminophen (Tylenol Extra Strength) 1,000 mg PO TID [facility] Last Admin: 04/22/20 09:29 Dose: 1,000 mg Documented by: Albuterol (Ventolin Hfa) 0 gm INH Q6H PRN PRN Reason: sob Albuterol/Ipratropium (Duoneb 3.0-0.5 Mg/3 Ml) 3 ml NEB Q6H PRN PRN Reason: Wheezing Alprazolam (Xanax) 1 mg PO DAILY [facility] Last Admin: 04/22/20 09:48 Dose: 1 mg Documented by: Alprazolam (Xanax) 0.5 mg PO TID PRN PRN Reason: ANXIETY Atorvastatin Calcium (Lipitor) 20 mg PO BEDTIME [facility] Last Admin: 04/21/20 21:35 Dose: 20 mg Documented by: Bupropion HCl (Wellbutrin Xl) 150 mg PO BEDTIME [facility] Last Admin: 09/18/20 21:40 Dose: 150 mg Documented by: Buspirone HCl (Buspar) 30 mg PO BID [facility] Last Admin: 04/22/20 09:24 Dose: 30 mg Documented by: Clotrimazole (Clotrimazole 1%) 0 gm TOP BID [facility] Last Admin: 04/22/20 09:27 Dose: 1 applic Documented by: Diclofenac Sodium (Voltaren 1% Gel) 2 gm TOP BID [facility] Last Admin: 04/22/20 09:30 Dose: 2 gm Documented by: Diltiazem HCl (Cardizem Cd) 120 mg PO BEDTIME [facility] Last Admin: 04/21/20 21:32 Dose: 120 mg Documented by: Famotidine (Pepcid) 20 mg PO BID [facility] Last Admin: 04/22/20 09:29 Dose: 20 mg Documented by: Fluoxetine HCl (Prozac) 40 mg PO DAILY [facility] Last Admin: 04/22/20 09:23 Dose: 40 mg Documented by: Furosemide (Lasix) 40 mg PO BIDDIURETIC [facility] Last Admin: 04/22/20 09:22 Dose: 40 mg Documented by: Gabapentin (Neurontin) 600 mg PO TID [facility] Last Admin: 04/22/20 09:43 Dose: 600 mg Documented by: Hydromorphone HCl (Dilaudid) 2 mg PO Q6H PRN PRN Reason: SEVERE PAIN Last Admin: 04/21/20 21:42 Dose: 2 mg Documented by: Hydroxyzine HCl (Atarax) 50 mg PO Q4H PRN PRN Reason: Nausea Last Admin: 04/09/20 11:00 Dose: 50 mg Documented by: Loratadine (Claritin) 10 mg PO DAILY [facility] Last Admin: 04/22/20 09:24 Dose: 10 mg Documented by: Mometasone Furoate/Formoterol Fumar (Dulera 100-5 Mcg) 2 puff IH BID [facility] Last Admin: 04/22/20 09:27 Dose: 2 puff Documented by: Oxcarbazepine (Trileptal) 600 mg PO BEDTIME [facility] Last Admin: 04/21/20 21:39 Dose: 600 mg Documented by: Potassium Chloride (Klor-Con 10) 10 meq PO BID [facility] Last Admin: 04/22/20 09:28 Dose: 10 meq Documented by: Quetiapine Fumarate (Seroquel) 200 mg PO BEDTIME [facility] Last Admin: 04/21/20 21:38 Dose: 200 mg Documented by: Rivaroxaban (Xarelto) 20 mg PO BEDTIME [facility] Last Admin: 04/21/20 21:41 Dose: 20 mg Documented by: Senna/Docusate Sodium (Senna Plus) 1 tab PO BID [facility] Last Admin: 04/22/20 09:31 Dose: Not Given Documented by: Trazodone HCl (Trazodone) 200 mg PO BEDTIME [facility] Last Admin: 04/21/20 21:38 Dose: 200 mg Documented by: Varenicline (Chantix) 1 mg PO BID [facility] Last Admin: 04/22/20 09:23 Dose: 1 mg Documented by: Discontinued Medications Chlorhexidine Gluconate (Peridex 0.12% Rinse) 15 ml PO BID [facility] Fluoxetine HCl (Prozac) 20 mg PO DAILY [facility] Last Admin: 04/14/20 09:40 Dose: 20 mg Documented by: Hydromorphone HCl (Dilaudid) 4 mg PO Q6H PRN PRN Reason: Pain Last Admin: 04/18/20 21:40 Dose: 4 mg Documented by: Hydromorphone HCl (Dilaudid) 2 mg PO Q6H PRN PRN Reason: Pain Last Admin: 04/11/20 04:39 Dose: 2 mg Documented by: Ondansetron HCl (Zofran Odt) 4 mg PO BID PRN PRN Reason: Nausea Oxycodone HCl (Oxycodone) 5 mg PO Q6H PRN PRN Reason: Pain Senna/Docusate Sodium (Senna Plus) 1 tab PO BID PRN PRN Reason: Constipation Last Admin: 04/04/20 21:04 Dose: 1 tab Documented by: Varenicline (Chantix) 1 mg PO BIDPC [facility] Last Admin: 04/04/20 19:45 Dose: Not Given Documented by: - Exam General: Alert, Oriented, Cooperative, No Acute Distress Lungs: Clear to Auscultation, Normal Respiratory Effort. No: Wheezing Cardiovascular: Regular Rate, Regular Rhythm GI/Abdominal Exam: Normal Bowel Sounds, Soft, Non-Tender, No Distention Extremities: Pedal Edema (2+ BLE) Sepsis Event Note - Evaluation Sepsis Screening Result: No Definite Risk - Focused Exam Vital Signs: Vital Signs Temp Pulse Resp BP Pulse Ox 04/22/20 08:00 97.8 F 67 18 148/93 H 96 - Problem List & Annotations (1) Achilles rupture, right SNOMED Code(s): 27310335429703337 Code(s): S86.011A - STRAIN OF RIGHT ACHILLES TENDON, INITIAL ENCOUNTER Status: Acute Current Visit: Yes (2) S/P tendon repair SNOMED Code(s): 216883530, 122213668 Code(s): Z98.890 - OTHER SPECIFIED POSTPROCEDURAL STATES Status: Acute Current Visit: Yes (3) PTSD (post-traumatic stress disorder) SNOMED Code(s): 52513809 Code(s): F43.10 - POST-TRAUMATIC STRESS DISORDER, UNSPECIFIED Status: Acute Current Visit: Yes (4) Anxiety SNOMED Code(s): 80578962 Code(s): F41.9 - ANXIETY DISORDER, UNSPECIFIED Status: Acute Current Visit: Yes (5) Depression SNOMED Code(s): 71527897 Code(s): F32.9 - MAJOR DEPRESSIVE DISORDER, SINGLE EPISODE, UNSPECIFIED Status: Acute Current Visit: Yes - Problem List Review Problem List Initiated/Reviewed/Updated: Yes - Plan Plan:: 1. Doing well with increased dose of Prozac at 40 mg. Schedule Psychology [facility] visits weekly. 2. Non-weightbearing for 3 weeks next podiatry appt 05/08, continue PT/OT. 3. COPD: Flutter valve, q1wa. 4. Edema: continue Lasix bid, JOSELO wraps to LLE. 5. Pain: No change to Dilaudid dosing. Add Lidocaine patch 1 to left lateral thigh and 1 to right lateral calf above CAM boot going to try on during the day and off at night.
[2020-04-22] MEDS: Lidocaine 5% 700 MG Patch TOP SCH (12:30)
[2020-04-22] MEDS: HYDROmorphone 2 MG Tab PO PRN ×2 (16:25→22:29)
[2020-04-22] MEDS: Diltiazem 120 MG Cap.CD PO SCH (20:13)
[2020-04-22] MEDS: atorvaSTATin 20 MG Tab PO SCH (20:15)
[2020-04-22] MEDS: QUEtiapine 100 MG Tab PO SCH (20:15)
[2020-04-22] MEDS: OXcarbazepine 300 MG Tab PO SCH (20:16)
[2020-04-22] MEDS: traZODone 100 MG Tab PO SCH (20:16)
[2020-04-22] MEDS: buPROPion 150 MG Tab.ER PO SCH (20:17)
[2020-04-23] MEDS: Loratadine 10 MG Tab PO SCH (10:22)
[2020-04-23] MEDS: Furosemide 40 MG Tab PO SCH ×2 (10:22→14:04)
[2020-04-23] MEDS: busPIRone 15 MG Tab PO SCH ×2 (10:22→20:29)
[2020-04-23] MEDS: Clotrimazole 1% Crm 15 GM Tube TOP SCH ×2 (10:22→20:31)
[2020-04-23] MEDS: Formoterol/Mometasone 100-5 MCG 8.8 GM Inhaler IH SCH ×2 (10:23→20:32)
[2020-04-23] MEDS: Diclofenac Sodium 1% Gel 100 GM Tube TOP SCH ×2 (10:23→20:34)
[2020-04-23] MEDS: Lidocaine 5% 700 MG Patch TOP SCH (10:24)
[2020-04-23] MEDS: Famotidine 20 MG Tab PO SCH ×2 (10:24→20:33)
[2020-04-23] MEDS: FLUoxetine 20 MG Cap PO SCH (10:24)
[2020-04-23] MEDS: Acetaminophen 500 MG Tab PO SCH ×3 (10:25→20:34)
[2020-04-23] MEDS: Potassium Chloride 10 MEQ Tab.ER PO SCH ×2 (10:26→20:32)
[2020-04-23] MEDS: ALPRAZolam 1 MG Tab PO SCH (10:43)
[2020-04-23] MEDS: Gabapentin 600 MG Tab PO SCH ×3 (10:43→20:33)
[2020-04-23] MEDS: HYDROmorphone 2 MG Tab PO PRN ×2 (14:10→20:35)
[2020-04-23] MEDS: Diltiazem 120 MG Cap.CD PO SCH (20:30)
[2020-04-23] MEDS: traZODone 100 MG Tab PO SCH (20:33)
[2020-04-23] MEDS: QUEtiapine 100 MG Tab PO SCH (20:33)
[2020-04-23] MEDS: atorvaSTATin 20 MG Tab PO SCH (20:33)
[2020-04-23] MEDS: OXcarbazepine 300 MG Tab PO SCH (20:34)
[2020-04-23] MEDS: buPROPion 150 MG Tab.ER PO SCH (20:35)
[2020-04-24] MEDS: Diclofenac Sodium 1% Gel 100 GM Tube TOP SCH ×2 (10:02→21:15)
[2020-04-24] MEDS: Gabapentin 600 MG Tab PO SCH ×3 (10:02→21:06)
[2020-04-24] MEDS: HYDROmorphone 2 MG Tab PO PRN ×2 (10:02→17:16)
[2020-04-24] MEDS: ALPRAZolam 1 MG Tab PO SCH (10:02)
[2020-04-24] MEDS: Lidocaine 5% 700 MG Patch TOP SCH (10:03)
[2020-04-24] MEDS: Formoterol/Mometasone 100-5 MCG 8.8 GM Inhaler IH SCH ×2 (10:04→21:21)
[2020-04-24] MEDS: Loratadine 10 MG Tab PO SCH (10:04)
[2020-04-24] MEDS: Potassium Chloride 10 MEQ Tab.ER PO SCH ×2 (10:05→21:22)
[2020-04-24] MEDS: Clotrimazole 1% Crm 15 GM Tube TOP SCH ×2 (10:05→21:20)
[2020-04-24] MEDS: FLUoxetine 20 MG Cap PO SCH (10:05)
[2020-04-24] MEDS: Acetaminophen 500 MG Tab PO SCH ×3 (10:06→21:18)
[2020-04-24] MEDS: Famotidine 20 MG Tab PO SCH ×2 (10:06→21:19)
[2020-04-24] MEDS: busPIRone 15 MG Tab PO SCH ×2 (10:06→21:06)
[2020-04-24] MEDS: Furosemide 40 MG Tab PO SCH ×2 (10:06→13:12)
[2020-04-24] MEDS: hydrOXYzine HCl 25 MG Tab PO PRN (10:07)
[2020-04-24] MEDS: ALPRAZolam 0.5 MG Tab PO PRN ×2 (11:29→17:16)
[2020-04-24] MEDS: buPROPion 150 MG Tab.ER PO SCH (21:06)
[2020-04-24] MEDS: Diltiazem 120 MG Cap.CD PO SCH (21:07)
[2020-04-24] MEDS: OXcarbazepine 300 MG Tab PO SCH (21:18)
[2020-04-24] MEDS: atorvaSTATin 20 MG Tab PO SCH (21:19)
[2020-04-24] MEDS: QUEtiapine 100 MG Tab PO SCH (21:23)
[2020-04-24] MEDS: traZODone 100 MG Tab PO SCH (21:23)
[2020-04-25] MEDS: Furosemide 40 MG Tab PO SCH ×2 (09:11→13:30)
[2020-04-25] MEDS: Famotidine 20 MG Tab PO SCH ×2 (09:11→20:50)
[2020-04-25] MEDS: Lidocaine 5% 700 MG Patch TOP SCH (09:12)
[2020-04-25] MEDS: busPIRone 15 MG Tab PO SCH ×2 (09:12→20:41)
[2020-04-25] MEDS: Clotrimazole 1% Crm 15 GM Tube TOP SCH ×2 (09:13→20:49)
[2020-04-25] MEDS: Acetaminophen 500 MG Tab PO SCH ×3 (09:13→20:51)
[2020-04-25] MEDS: Gabapentin 600 MG Tab PO SCH ×3 (09:13→20:49)
[2020-04-25] MEDS: Diclofenac Sodium 1% Gel 100 GM Tube TOP SCH ×2 (09:13→20:51)
[2020-04-25] MEDS: ALPRAZolam 1 MG Tab PO SCH (09:14)
[2020-04-25] MEDS: Potassium Chloride 10 MEQ Tab.ER PO SCH ×2 (09:14→20:42)
[2020-04-25] MEDS: Formoterol/Mometasone 100-5 MCG 8.8 GM Inhaler IH SCH ×2 (09:14→20:42)
[2020-04-25] MEDS: FLUoxetine 20 MG Cap PO SCH (09:14)
[2020-04-25] MEDS: HYDROmorphone 2 MG Tab PO PRN ×3 (09:15→21:49)
[2020-04-25] MEDS: Loratadine 10 MG Tab PO SCH (09:15)
[2020-04-25] MEDS: ALPRAZolam 0.5 MG Tab PO PRN ×2 (13:30→15:50)
[2020-04-25] MEDS: atorvaSTATin 20 MG Tab PO SCH (20:48)
[2020-04-25] MEDS: traZODone 100 MG Tab PO SCH (20:50)
[2020-04-25] MEDS: QUEtiapine 100 MG Tab PO SCH (20:50)
[2020-04-25] MEDS: OXcarbazepine 300 MG Tab PO SCH (20:51)
[2020-04-25] MEDS: buPROPion 150 MG Tab.ER PO SCH (20:52)
[2020-04-25] MEDS: Diltiazem 120 MG Cap.CD PO SCH (20:54)
[2020-04-26] MEDS: HYDROmorphone 2 MG Tab PO PRN ×3 (09:21→21:31)
[2020-04-26] MEDS: Gabapentin 600 MG Tab PO SCH ×3 (09:21→20:55)
[2020-04-26] MEDS: ALPRAZolam 1 MG Tab PO SCH (09:21)
[2020-04-26] MEDS: Diclofenac Sodium 1% Gel 100 GM Tube TOP SCH ×2 (09:26→20:57)
[2020-04-26] MEDS: Clotrimazole 1% Crm 15 GM Tube TOP SCH ×2 (09:26→21:31)
[2020-04-26] MEDS: Famotidine 20 MG Tab PO SCH ×2 (09:27→20:55)
[2020-04-26] MEDS: Furosemide 40 MG Tab PO SCH ×2 (09:27→15:03)
[2020-04-26] MEDS: Loratadine 10 MG Tab PO SCH (09:27)
[2020-04-26] MEDS: busPIRone 15 MG Tab PO SCH ×2 (09:27→20:52)
[2020-04-26] MEDS: Acetaminophen 500 MG Tab PO SCH ×3 (09:27→20:57)
[2020-04-26] MEDS: Potassium Chloride 10 MEQ Tab.ER PO SCH ×2 (09:27→20:54)
[2020-04-26] MEDS: Formoterol/Mometasone 100-5 MCG 8.8 GM Inhaler IH SCH ×2 (09:28→20:54)
[2020-04-26] MEDS: FLUoxetine 20 MG Cap PO SCH (09:28)
[2020-04-26] MEDS: Lidocaine 5% 700 MG Patch TOP SCH (09:28)
[2020-04-26] MEDS ORDERED: Acetaminophen/HYDROcodone 325-5 MG Tab PO PRN (10:05)
[2020-04-26] MEDS: Diltiazem 120 MG Cap.CD PO SCH (20:52)
[2020-04-26] MEDS: atorvaSTATin 20 MG Tab PO SCH (20:55)
[2020-04-26] MEDS: traZODone 100 MG Tab PO SCH (20:56)
[2020-04-26] MEDS: QUEtiapine 100 MG Tab PO SCH (20:56)
[2020-04-26] MEDS: OXcarbazepine 300 MG Tab PO SCH (20:57)
[2020-04-26] MEDS: buPROPion 150 MG Tab.ER PO SCH (20:58)
[2020-04-27] MEDS: Loratadine 10 MG Tab PO SCH (08:50)
[2020-04-27] MEDS: Acetaminophen 500 MG Tab PO SCH ×4 (08:51→21:18)
[2020-04-27] MEDS: ALPRAZolam 1 MG Tab PO SCH (08:51)
[2020-04-27] MEDS: FLUoxetine 20 MG Cap PO SCH (08:51)
[2020-04-27] MEDS: Gabapentin 600 MG Tab PO SCH ×3 (08:51→21:16)
[2020-04-27] MEDS: Potassium Chloride 10 MEQ Tab.ER PO SCH ×2 (08:52→21:16)
[2020-04-27] MEDS: Diclofenac Sodium 1% Gel 100 GM Tube TOP SCH ×2 (08:52→21:18)
[2020-04-27] MEDS: Furosemide 40 MG Tab PO SCH ×2 (08:52→14:51)
[2020-04-27] MEDS: Clotrimazole 1% Crm 15 GM Tube TOP SCH (08:53)
[2020-04-27] MEDS: Formoterol/Mometasone 100-5 MCG 8.8 GM Inhaler IH SCH ×2 (08:53→21:16)
[2020-04-27] MEDS: busPIRone 15 MG Tab PO SCH ×2 (08:53→21:17)
[2020-04-27] MEDS: Lidocaine 5% 700 MG Patch TOP SCH (08:54)
[2020-04-27] MEDS: Famotidine 20 MG Tab PO SCH ×2 (08:55→21:19)
[2020-04-27] MEDS: HYDROmorphone 2 MG Tab PO PRN ×2 (11:52→18:36)
--- NOTE | 2020-04-27 14:02 | PCM.PN ---
- General Info Date of Service: 04/27/20 Subjective Update: She is feeling pretty good today, in good spirits. Having bowel movements every other day, using prune juice. NWB with cam boot through 05/[address] Garrett. Lidocaine patches are helping nerve pain. Mood improved. Functional Status: Reports: Pain Controlled, Tolerating Diet, Ambulating (NWB on right foot), Urinating - Patient Data Vitals - Most Recent: Last Vital Signs Temp 97.7 F 04/26/20 21:00 Pulse 75 04/26/20 21:00 Resp 16 04/26/20 21:00 BP 136/78 04/26/20 21:00 Pulse Ox 92 L 04/26/20 13:00 Weight - Most Recent: 356 lb 14.4 oz Med Orders - Current: Current Medications Acetaminophen (Tylenol Extra Strength) 500 mg PO TID [facility] Last Admin: 04/27/20 08:51 Dose: 500 mg Documented by: Albuterol (Ventolin Hfa) 0 gm INH Q6H PRN PRN Reason: sob Albuterol/Ipratropium (Duoneb 3.0-0.5 Mg/3 Ml) 3 ml NEB Q6H PRN PRN Reason: Wheezing Alprazolam (Xanax) 1 mg PO DAILY [facility] Last Admin: 04/27/20 08:51 Dose: 1 mg Documented by: Alprazolam (Xanax) 0.5 mg PO TID PRN PRN Reason: ANXIETY Last Admin: 04/25/20 15:50 Dose: 0.5 mg Documented by: Atorvastatin Calcium (Lipitor) 20 mg PO BEDTIME [facility] Last Admin: 04/26/20 20:55 Dose: 20 mg Documented by: Bupropion HCl (Wellbutrin Xl) 150 mg PO BEDTIME [facility] Last Admin: 04/26/20 20:58 Dose: 150 mg Documented by: Buspirone HCl (Buspar) 30 mg PO BID [facility] Last Admin: 04/27/20 08:53 Dose: 30 mg Documented by: Clotrimazole (Clotrimazole 1%) 0 gm TOP BID [facility] Last Admin: 04/27/20 08:53 Dose: 1 applic Documented by: Diclofenac Sodium (Voltaren 1% Gel) 2 gm TOP BID [facility] Last Admin: 04/27/20 08:52 Dose: 2 gm Documented by: Diltiazem HCl (Cardizem Cd) 120 mg PO BEDTIME [facility] Last Admin: 04/26/20 20:52 Dose: 120 mg Documented by: Famotidine (Pepcid) 20 mg PO BID [facility] Last Admin: 04/27/20 08:55 Dose: 20 mg Documented by: Fluoxetine HCl (Prozac) 40 mg PO DAILY [facility] Last Admin: 04/27/20 08:51 Dose: 40 mg Documented by: Furosemide (Lasix) 40 mg PO BIDDIURETIC [facility] Last Admin: 04/27/20 08:52 Dose: 40 mg Documented by: Gabapentin (Neurontin) 600 mg PO TID [facility] Last Admin: 04/27/20 08:51 Dose: 600 mg Documented by: Hydromorphone HCl (Dilaudid) 2 mg PO Q6H PRN PRN Reason: SEVERE PAIN Last Admin: 04/27/20 11:52 Dose: 2 mg Documented by: Lidocaine (Lidoderm 5%) 1,400 mg TOP DAILY [facility] Last Admin: 04/27/20 08:54 Dose: 1,400 mg Documented by: Loratadine (Claritin) 10 mg PO DAILY [facility] Last Admin: 04/27/20 08:50 Dose: 10 mg Documented by: Miscellaneous Information (Remove Patch) 2 ea TRDERM Q24H [facility] Mometasone Furoate/Formoterol Fumar (Dulera 100-5 Mcg) 2 puff IH BID [facility] Last Admin: 04/27/20 08:53 Dose: 2 puff Documented by: Oxcarbazepine (Trileptal) 600 mg PO BEDTIME [facility] Last Admin: 04/26/20 20:57 Dose: 600 mg Documented by: Potassium Chloride (Klor-Con 10) 10 meq PO BID [facility] Last Admin: 04/27/20 08:52 Dose: 10 meq Documented by: Quetiapine Fumarate (Seroquel) 200 mg PO BEDTIME [facility] Last Admin: 04/26/20 20:56 Dose: 200 mg Documented by: Rivaroxaban (Xarelto) 20 mg PO BEDTIME [facility] Last Admin: 04/26/20 20:58 Dose: 20 mg Documented by: Trazodone HCl (Trazodone) 200 mg PO BEDTIME [facility] Last Admin: 04/26/20 20:56 Dose: 200 mg Documented by: Varenicline (Chantix) 1 mg PO BID [facility] Last Admin: 04/27/20 08:51 Dose: 1 mg Documented by: Discontinued Medications Acetaminophen (Tylenol Extra Strength) 500 - 1,000 mg PO Q6H PRN PRN Reason: Pain Last Admin: 04/06/20 21:22 Dose: 1,000 mg Documented by: Acetaminophen (Tylenol Extra Strength) 1,000 mg PO TID [facility] Last Admin: 04/26/20 09:27 Dose: 1,000 mg Documented by: Hydrocodone Bitart/Acetaminophen ([place] 325-5 Mg) 1 tab PO Q6H PRN PRN Reason: PAIN Chlorhexidine Gluconate (Peridex 0.12% Rinse) 15 ml PO BID [facility] Fluoxetine HCl (Prozac) 20 mg PO DAILY [facility] Last Admin: 04/14/20 09:40 Dose: 20 mg Documented by: Hydromorphone HCl (Dilaudid) 4 mg PO Q6H PRN PRN Reason: Pain Last Admin: 04/18/20 21:40 Dose: 4 mg Documented by: Hydromorphone HCl (Dilaudid) 2 mg PO Q6H PRN PRN Reason: Pain Last Admin: 04/11/20 04:39 Dose: 2 mg Documented by: Hydroxyzine HCl (Atarax) 50 mg PO Q4H PRN PRN Reason: Nausea Last Admin: 04/24/20 10:07 Dose: 50 mg Documented by: Hydroxyzine Pamoate (Vistaril) 50 mg PO Q6H PRN PRN Reason: WITH HYDROCODONE FOR ITCHING Ondansetron HCl (Zofran Odt) 4 mg PO BID PRN PRN Reason: Nausea Oxycodone HCl (Oxycodone) 5 mg PO Q6H PRN PRN Reason: Pain Senna/Docusate Sodium (Senna Plus) 1 tab PO BID PRN PRN Reason: Constipation Last Admin: 04/04/20 21:04 Dose: 1 tab Documented by: Senna/Docusate Sodium (Senna Plus) 1 tab PO BID [facility] Last Admin: 04/22/20 09:31 Dose: Not Given Documented by[facility] Last Admin: 04/04/20 19:45 Dose: Not Given Documented by: - Exam General: Alert, Oriented, Cooperative, No Acute Distress Lungs: Clear to Auscultation, Normal Respiratory Effort Cardiovascular: Regular Rate, Regular Rhythm GI/Abdominal Exam: Normal Bowel Sounds, Soft, Non-Tender, No Distention Extremities: Pedal Edema (2+ BLE, lidocaine patches on left upper thigh, right cm.) Peripheral Pulses: 2+: Radial (L), Radial (R) Sepsis Event Note - Evaluation Sepsis Screening Result: No Definite Risk - Problem List & Annotations (1) Achilles rupture, right SNOMED Code(s): 45779924533576540 Code(s): S86.011A - STRAIN OF RIGHT ACHILLES TENDON, INITIAL ENCOUNTER Status: Acute Current Visit: Yes (2) S/P tendon repair SNOMED Code(s): 439866932, 251256586 Code(s): Z98.890 - OTHER SPECIFIED POSTPROCEDURAL STATES Status: Acute Current Visit: Yes (3) PTSD (post-traumatic stress disorder) SNOMED Code(s): 20807249 Code(s): F43.10 - POST-TRAUMATIC STRESS DISORDER, UNSPECIFIED Status: Acute Current Visit: Yes (4) Anxiety SNOMED Code(s): 60333409 Code(s): F41.9 - ANXIETY DISORDER, UNSPECIFIED Status: Acute Current Visit: Yes (5) Depression SNOMED Code(s): 66304750 Code(s): F32.9 - MAJOR DEPRESSIVE DISORDER, SINGLE EPISODE, UNSPECIFIED Status: Acute Current Visit: Yes - Problem List Review Problem List Initiated/Reviewed/Updated: Yes - My Orders Last 24 Hours: My Active Orders 04/26/20 14:00 Acetaminophen [Tylenol Extra Strength] 500 mg PO TID 04/27/20 21:00 Remove Patch 2 ea TRDERM Q24H - Plan Plan:: 1. Non-weightbearing for 3 weeks next podiatry appt 05/08, continue PT/OT. 2. COPD: Flutter valve, q1wa. 3. Edema: continue Lasix bid, JOSELO wraps to LLE. 4. Pain: Dilaudid 2 mg q6h as needed, Lidocaine patch 1 to left lateral thigh and 1 to right lateral calf above CAM boot on during the day and off at night. Tylenol 1000 mg tid, Allergy to NSAIDS.
[2020-04-27] MEDS: OXcarbazepine 300 MG Tab PO SCH (21:15)
[2020-04-27] MEDS: QUEtiapine 100 MG Tab PO SCH (21:15)
[2020-04-27] MEDS: atorvaSTATin 20 MG Tab PO SCH (21:16)
[2020-04-27] MEDS: buPROPion 150 MG Tab.ER PO SCH (21:16)
[2020-04-27] MEDS: traZODone 100 MG Tab PO SCH (21:19)
[2020-04-27] MEDS: Diltiazem 120 MG Cap.CD PO SCH (21:20)
[2020-04-28] MEDS: HYDROmorphone 2 MG Tab PO PRN ×3 (02:26→21:08)
[2020-04-28] MEDS: FLUoxetine 20 MG Cap PO SCH (09:00)
[2020-04-28] MEDS: Acetaminophen 500 MG Tab PO SCH ×3 (09:00→21:29)
[2020-04-28] MEDS: busPIRone 15 MG Tab PO SCH ×2 (09:00→21:28)
[2020-04-28] MEDS: Gabapentin 600 MG Tab PO SCH ×3 (09:00→21:28)
[2020-04-28] MEDS: ALPRAZolam 1 MG Tab PO SCH (09:00)
[2020-04-28] MEDS: Loratadine 10 MG Tab PO SCH (09:01)
[2020-04-28] MEDS: Formoterol/Mometasone 100-5 MCG 8.8 GM Inhaler IH SCH ×2 (09:01→21:30)
[2020-04-28] MEDS: Potassium Chloride 10 MEQ Tab.ER PO SCH ×2 (09:01→21:29)
[2020-04-28] MEDS: Diclofenac Sodium 1% Gel 100 GM Tube TOP SCH ×2 (09:01→21:30)
[2020-04-28] MEDS: Famotidine 20 MG Tab PO SCH ×2 (09:01→21:28)
[2020-04-28] MEDS: Lidocaine 5% 700 MG Patch TOP SCH (09:02)
[2020-04-28] MEDS: Furosemide 40 MG Tab PO SCH ×2 (09:02→14:26)
[2020-04-28] MEDS: Nystatin Topical Powder 15 GM Bottle TOP SCH ×2 (12:17→21:30)
[2020-04-28] MEDS: OXcarbazepine 300 MG Tab PO SCH (21:27)
[2020-04-28] MEDS: atorvaSTATin 20 MG Tab PO SCH (21:28)
[2020-04-28] MEDS: traZODone 100 MG Tab PO SCH (21:28)
[2020-04-28] MEDS: buPROPion 150 MG Tab.ER PO SCH (21:29)
[2020-04-28] MEDS: QUEtiapine 100 MG Tab PO SCH (21:29)
[2020-04-28] MEDS: Diltiazem 120 MG Cap.CD PO SCH (21:29)
[2020-04-29] MEDS: Lidocaine 5% 700 MG Patch TOP SCH (09:18)
[2020-04-29] MEDS: busPIRone 15 MG Tab PO SCH ×2 (09:18→20:26)
[2020-04-29] MEDS: Furosemide 40 MG Tab PO SCH ×2 (09:18→14:16)
[2020-04-29] MEDS: Gabapentin 600 MG Tab PO SCH ×3 (09:19→20:27)
[2020-04-29] MEDS: Acetaminophen 500 MG Tab PO SCH ×3 (09:19→20:26)
[2020-04-29] MEDS: Formoterol/Mometasone 100-5 MCG 8.8 GM Inhaler IH SCH ×2 (09:19→20:27)
[2020-04-29] MEDS: Famotidine 20 MG Tab PO SCH ×2 (09:19→20:27)
[2020-04-29] MEDS: Diclofenac Sodium 1% Gel 100 GM Tube TOP SCH ×2 (09:19→20:28)
[2020-04-29] MEDS: ALPRAZolam 1 MG Tab PO SCH (09:19)
[2020-04-29] MEDS: Nystatin Topical Powder 15 GM Bottle TOP SCH ×2 (09:19→20:28)
[2020-04-29] MEDS: FLUoxetine 20 MG Cap PO SCH (09:20)
[2020-04-29] MEDS: Loratadine 10 MG Tab PO SCH (09:20)
[2020-04-29] MEDS: Potassium Chloride 10 MEQ Tab.ER PO SCH ×2 (09:20→20:27)
[2020-04-29] MEDS: Ondansetron 4 MG Tab.DIS PO PRN (11:38)
[2020-04-29] MEDS: HYDROmorphone 2 MG Tab PO PRN ×2 (11:38→18:33)
[2020-04-29] MEDS: atorvaSTATin 20 MG Tab PO SCH (20:26)
[2020-04-29] MEDS: OXcarbazepine 300 MG Tab PO SCH (20:26)
[2020-04-29] MEDS: traZODone 100 MG Tab PO SCH (20:26)
[2020-04-29] MEDS: QUEtiapine 100 MG Tab PO SCH (20:26)
[2020-04-29] MEDS: buPROPion 150 MG Tab.ER PO SCH (20:26)
[2020-04-29] MEDS: Diltiazem 120 MG Cap.CD PO SCH (20:27)
[2020-04-30] MEDS: HYDROmorphone 2 MG Tab PO PRN ×2 (01:35→17:46)
[2020-04-30] MEDS: Famotidine 20 MG Tab PO SCH ×2 (09:17→21:01)
[2020-04-30] MEDS: FLUoxetine 20 MG Cap PO SCH (09:17)
[2020-04-30] MEDS: ALPRAZolam 1 MG Tab PO SCH (09:17)
[2020-04-30] MEDS: Acetaminophen 500 MG Tab PO SCH ×3 (09:17→20:34)
[2020-04-30] MEDS: Diclofenac Sodium 1% Gel 100 GM Tube TOP SCH ×2 (09:18→21:03)
[2020-04-30] MEDS: Nystatin Topical Powder 15 GM Bottle TOP SCH ×2 (09:18→21:03)
[2020-04-30] MEDS: Furosemide 40 MG Tab PO SCH ×2 (09:18→14:05)
[2020-04-30] MEDS: Gabapentin 600 MG Tab PO SCH ×3 (09:18→21:02)
[2020-04-30] MEDS: Potassium Chloride 10 MEQ Tab.ER PO SCH ×2 (09:18→21:01)
[2020-04-30] MEDS: Formoterol/Mometasone 100-5 MCG 8.8 GM Inhaler IH SCH ×2 (09:18→21:11)
[2020-04-30] MEDS: Loratadine 10 MG Tab PO SCH (09:18)
[2020-04-30] MEDS: busPIRone 15 MG Tab PO SCH ×2 (09:18→21:01)
[2020-04-30] MEDS: Lidocaine 5% 700 MG Patch TOP SCH (09:19)
--- NOTE | 2020-04-30 16:06 | PCM.PN ---
- General Info Date of Service: 04/30/20 Admission Dx/Problem (Free Text): Patient has no concerns. She so some pain and a lot of does work when she needs her sometimes she decides not to use anything for it. Still in a boot and none weightbearing - Patient Data Vitals - Most Recent: Last Vital Signs Temp 98.1 F 04/30/20 08:10 Pulse 60 04/30/20 08:10 Resp 16 04/30/20 08:10 BP 121/67 04/30/20 08:10 Pulse Ox 98 04/30/20 08:10 Weight - Most Recent: 356 lb 14.4 oz Med Orders - Current: Current Medications Acetaminophen (Tylenol Extra Strength) 1,000 mg PO TID [facility] Last Admin: 04/30/20 14:04 Dose: 1,000 mg Documented by: Albuterol (Ventolin Hfa) 0 gm INH Q6H PRN PRN Reason: sob Albuterol/Ipratropium (Duoneb 3.0-0.5 Mg/3 Ml) 3 ml NEB Q6H PRN PRN Reason: Wheezing Alprazolam (Xanax) 1 mg PO DAILY [facility] Last Admin: 04/30/20 09:17 Dose: 1 mg Documented by: Alprazolam (Xanax) 0.5 mg PO TID PRN PRN Reason: ANXIETY Last Admin: 04/25/20 15:50 Dose: 0.5 mg Documented by: Atorvastatin Calcium (Lipitor) 20 mg PO BEDTIME [facility] Last Admin: 04/29/20 20:26 Dose: 20 mg Documented by: Bupropion HCl (Wellbutrin Xl) 150 mg PO BEDTIME [facility] Last Admin: 04/29/20 20:26 Dose: 150 mg Documented by: Buspirone HCl (Buspar) 30 mg PO BID [facility] Last Admin: 04/30/20 09:18 Dose: 30 mg Documented by: Diclofenac Sodium (Voltaren 1% Gel) 2 gm TOP BID [facility] Last Admin: 04/30/20 09:18 Dose: 1 applic Documented by: Diltiazem HCl (Cardizem Cd) 120 mg PO BEDTIME [facility] Last Admin: 04/29/20 20:27 Dose: 120 mg Documented by: Famotidine (Pepcid) 20 mg PO BID [facility] Last Admin: 09/27/20 09:17 Dose: 20 mg Documented by: Fluoxetine HCl (Prozac) 40 mg PO DAILY [facility] Last Admin: 04/30/20 09:17 Dose: 40 mg Documented by: Furosemide (Lasix) 40 mg PO BIDDIURETIC [facility] Last Admin: 04/30/20 14:05 Dose: 40 mg Documented by: Gabapentin (Neurontin) 600 mg PO TID [facility] Last Admin: 04/30/20 14:05 Dose: 600 mg Documented by: Hydromorphone HCl (Dilaudid) 2 mg PO Q6H PRN PRN Reason: SEVERE PAIN Last Admin: 04/30/20 01:35 Dose: 2 mg Documented by: Lidocaine (Lidoderm 5%) 1,400 mg TOP DAILY [facility] Last Admin: 04/30/20 09:19 Dose: 1,400 mg Documented by: Loratadine (Claritin) 10 mg PO DAILY [facility] Last Admin: 04/30/20 09:18 Dose: 10 mg Documented by: Miscellaneous Information (Remove Patch) 2 ea TRDERM Q24H [facility] Last Admin: 04/29/20 20:37 Dose: 2 ea Documented by: Mometasone Furoate/Formoterol Fumar (Dulera 100-5 Mcg) 2 puff IH BID [facility] Last Admin: 04/30/20 09:18 Dose: 2 puff Documented by: Nystatin (Nystop) 0 gm TOP BID [facility] Last Admin: 04/30/20 09:18 Dose: 1 applic Documented by: Ondansetron HCl (Zofran Odt) 4 mg PO Q4H PRN PRN Reason: Nausea/Vomiting Last Admin: 04/29/20 11:38 Dose: 4 mg Documented by: Oxcarbazepine (Trileptal) 600 mg PO BEDTIME [facility] Last Admin: 04/29/20 20:26 Dose: 600 mg Documented by: Potassium Chloride (Klor-Con 10) 10 meq PO BID [facility] Last Admin: 04/30/20 09:18 Dose: 10 meq Documented by: Quetiapine Fumarate (Seroquel) 200 mg PO BEDTIME [facility] Last Admin: 04/29/20 20:26 Dose: 200 mg Documented by: Rivaroxaban (Xarelto) 20 mg PO BEDTIME [facility] Last Admin: 04/29/20 20:26 Dose: 20 mg Documented by: Trazodone HCl (Trazodone) 200 mg PO BEDTIME [facility] Last Admin: 04/29/20 20:26 Dose: 200 mg Documented by: Varenicline (Chantix) 1 mg PO BID [facility] Last Admin: 04/30/20 09:17 Dose: 1 mg Documented by: Discontinued Medications Acetaminophen (Tylenol Extra Strength) 500 - 1,000 mg PO Q6H PRN PRN Reason: Pain Last Admin: 04/06/20 21:22 Dose: 1,000 mg Documented by: Acetaminophen (Tylenol Extra Strength) 1,000 mg PO TID [facility] Last Admin: 04/26/20 09:27 Dose: 1,000 mg Documented by: Acetaminophen (Tylenol Extra Strength) 500 mg PO TID [facility] Last Admin: 04/27/20 14:59 Dose: 500 mg Documented by: Hydrocodone Bitart/Acetaminophen ([place]iff 325-5 Mg) 1 tab PO Q6H PRN PRN Reason: PAIN Chlorhexidine Gluconate (Peridex 0.12% Rinse) 15 ml PO BID [facility] Clotrimazole (Clotrimazole 1%) 0 gm TOP BID [facility] Last Admin: 04/27/20 08:53 Dose: 1 applic Documented by: Fluoxetine HCl (Prozac) 20 mg PO DAILY [facility] Last Admin: 04/14/20 09:40 Dose: 20 mg Documented by: Hydromorphone HCl (Dilaudid) 4 mg PO Q6H PRN PRN Reason: Pain Last Admin: 04/18/20 21:40 Dose: 4 mg Documented by: Hydromorphone HCl (Dilaudid) 2 mg PO Q6H PRN PRN Reason: Pain Last Admin: 04/11/20 04:39 Dose: 2 mg Documented by: Hydroxyzine HCl (Atarax) 50 mg PO Q4H PRN PRN Reason: Nausea Last Admin: 04/24/20 10:07 Dose: 50 mg Documented by: Hydroxyzine Pamoate (Vistaril) 50 mg PO Q6H PRN PRN Reason: WITH HYDROCODONE FOR ITCHING Ondansetron HCl (Zofran Odt) 4 mg PO BID PRN PRN Reason: Nausea Oxycodone HCl (Oxycodone) 5 mg PO Q6H PRN PRN Reason: Pain Senna/Docusate Sodium (Senna Plus) 1 tab PO BID PRN PRN Reason: Constipation Last Admin: 04/04/20 21:04 Dose: 1 tab Documented by: Senna/Docusate Sodium (Senna Plus) 1 tab PO BID [facility] Last Admin: 04/22/20 09:31 Dose: Not Given Documented by: Varenicline (Chantix) 1 mg PO BIDPC [facility] Last Admin: 04/04/20 19:45 Dose: Not Given Documented by: - Exam General: Alert, Oriented, Cooperative Extremities: Other (Cam Walker right leg did not remove it today to look) Sepsis Event Note - Evaluation Sepsis Screening Result: No Definite Risk - Focused Exam Vital Signs: Vital Signs Temp Pulse Resp BP Pulse Ox 04/30/20 08:10 98.1 F 60 16 121/67 98 - Problem List & Annotations (1) Achilles rupture, right SNOMED Code(s): 73645069724006075 Code(s): S86.011A - STRAIN OF RIGHT ACHILLES TENDON, INITIAL ENCOUNTER Status: Acute Current Visit: Yes (2) Anxiety SNOMED Code(s): 16456763 Code(s): F41.9 - ANXIETY DISORDER, UNSPECIFIED Status: Acute Current Visit: Yes (3) Depression SNOMED Code(s): 52830343 Code(s): F32.9 - MAJOR DEPRESSIVE DISORDER, SINGLE EPISODE, UNSPECIFIED Status: Acute Current Visit: Yes (4) PTSD (post-traumatic stress disorder) SNOMED Code(s): 88535078 Code(s): F43.10 - POST-TRAUMATIC STRESS DISORDER, UNSPECIFIED Status: Acute Current Visit: Yes (5) S/P tendon repair SNOMED Code(s): 459483949, 236759111 Code(s): Z98.890 - OTHER SPECIFIED POSTPROCEDURAL STATES Status: Acute Current Visit: Yes - Problem List Review Problem List Initiated/Reviewed/Updated: Yes - Plan Plan:: 1. Continue current care
[2020-04-30] MEDS: OXcarbazepine 300 MG Tab PO SCH (21:01)
[2020-04-30] MEDS: traZODone 100 MG Tab PO SCH (21:02)
[2020-04-30] MEDS: Diltiazem 120 MG Cap.CD PO SCH (21:02)
[2020-04-30] MEDS: QUEtiapine 100 MG Tab PO SCH (21:02)
[2020-04-30] MEDS: atorvaSTATin 20 MG Tab PO SCH (21:02)
[2020-04-30] MEDS: buPROPion 150 MG Tab.ER PO SCH (21:02)
[2020-04-30] MEDS: ALPRAZolam 0.5 MG Tab PO PRN (21:40)
[2020-05-01] MEDS: Loratadine 10 MG Tab PO SCH (09:50)
[2020-05-01] MEDS: Furosemide 40 MG Tab PO SCH ×2 (09:50→13:07)
[2020-05-01] MEDS: Gabapentin 600 MG Tab PO SCH ×3 (09:50→20:28)
[2020-05-01] MEDS: ALPRAZolam 1 MG Tab PO SCH (09:50)
[2020-05-01] MEDS: Potassium Chloride 10 MEQ Tab.ER PO SCH ×2 (09:50→20:29)
[2020-05-01] MEDS: busPIRone 15 MG Tab PO SCH ×2 (09:51→20:28)
[2020-05-01] MEDS: Acetaminophen 500 MG Tab PO SCH ×3 (09:51→20:31)
[2020-05-01] MEDS: Famotidine 20 MG Tab PO SCH ×2 (09:51→20:28)
[2020-05-01] MEDS: FLUoxetine 20 MG Cap PO SCH (09:51)
[2020-05-01] MEDS: HYDROmorphone 2 MG Tab PO PRN ×3 (09:51→22:11)
[2020-05-01] MEDS: Formoterol/Mometasone 100-5 MCG 8.8 GM Inhaler IH SCH ×2 (09:52→20:31)
[2020-05-01] MEDS: Lidocaine 5% 700 MG Patch TOP SCH (09:55)
[2020-05-01] MEDS: Nystatin Topical Powder 15 GM Bottle TOP SCH ×2 (09:56→20:32)
[2020-05-01] MEDS: Diclofenac Sodium 1% Gel 100 GM Tube TOP SCH ×2 (09:57→20:32)
[2020-05-01] MEDS: Ondansetron 4 MG Tab.DIS PO PRN (10:00)
[2020-05-01] MEDS: ALPRAZolam 0.5 MG Tab PO PRN ×2 (16:51→19:40)
[2020-05-01] MEDS: QUEtiapine 100 MG Tab PO SCH (20:28)
[2020-05-01] MEDS: OXcarbazepine 300 MG Tab PO SCH (20:28)
[2020-05-01] MEDS: traZODone 100 MG Tab PO SCH (20:29)
[2020-05-01] MEDS: Diltiazem 120 MG Cap.CD PO SCH (20:29)
[2020-05-01] MEDS: atorvaSTATin 20 MG Tab PO SCH (20:31)
[2020-05-01] MEDS: buPROPion 150 MG Tab.ER PO SCH (20:31)
[2020-05-02] MEDS: Nystatin Topical Powder 15 GM Bottle TOP SCH ×3 (09:31→21:01)
[2020-05-02] MEDS: Lidocaine 5% 700 MG Patch TOP SCH (09:32)
[2020-05-02] MEDS: Furosemide 40 MG Tab PO SCH ×2 (09:36→14:19)
[2020-05-02] MEDS: busPIRone 15 MG Tab PO SCH ×2 (09:37→20:58)
[2020-05-02] MEDS: Loratadine 10 MG Tab PO SCH (09:38)
[2020-05-02] MEDS: Formoterol/Mometasone 100-5 MCG 8.8 GM Inhaler IH SCH ×2 (09:39→21:00)
[2020-05-02] MEDS: Potassium Chloride 10 MEQ Tab.ER PO SCH ×2 (09:39→20:59)
[2020-05-02] MEDS: Famotidine 20 MG Tab PO SCH ×2 (09:41→20:58)
[2020-05-02] MEDS: Acetaminophen 500 MG Tab PO SCH ×3 (09:42→20:59)
[2020-05-02] MEDS: FLUoxetine 20 MG Cap PO SCH (09:42)
[2020-05-02] MEDS: Diclofenac Sodium 1% Gel 100 GM Tube TOP SCH ×3 (09:43→21:00)
[2020-05-02] MEDS: ALPRAZolam 1 MG Tab PO SCH (10:12)
[2020-05-02] MEDS: Gabapentin 600 MG Tab PO SCH ×3 (10:12→20:59)
[2020-05-02] MEDS: HYDROmorphone 2 MG Tab PO PRN ×3 (10:12→22:25)
[2020-05-02] MEDS: Ondansetron 4 MG Tab.DIS PO PRN (10:13)
[2020-05-02] MEDS: ALPRAZolam 0.5 MG Tab PO PRN ×2 (16:09→22:24)
[2020-05-02] MEDS: OXcarbazepine 300 MG Tab PO SCH (20:58)
[2020-05-02] MEDS: traZODone 100 MG Tab PO SCH (20:59)
[2020-05-02] MEDS: Diltiazem 120 MG Cap.CD PO SCH (20:59)
[2020-05-02] MEDS: buPROPion 150 MG Tab.ER PO SCH (20:59)
[2020-05-02] MEDS: atorvaSTATin 20 MG Tab PO SCH (20:59)
[2020-05-02] MEDS: QUEtiapine 100 MG Tab PO SCH (20:59)
[2020-05-03] MEDS: Diclofenac Sodium 1% Gel 100 GM Tube TOP SCH ×2 (09:26→21:44)
[2020-05-03] MEDS: HYDROmorphone 2 MG Tab PO PRN ×3 (09:26→21:34)
[2020-05-03] MEDS: ALPRAZolam 1 MG Tab PO SCH (09:27)
[2020-05-03] MEDS: Gabapentin 600 MG Tab PO SCH ×3 (09:27→21:43)
[2020-05-03] MEDS: Acetaminophen 500 MG Tab PO SCH ×3 (09:27→21:35)
[2020-05-03] MEDS: busPIRone 15 MG Tab PO SCH ×2 (09:27→21:42)
[2020-05-03] MEDS: Loratadine 10 MG Tab PO SCH (09:27)
[2020-05-03] MEDS: Furosemide 40 MG Tab PO SCH ×2 (09:27→13:33)
[2020-05-03] MEDS: Nystatin Topical Powder 15 GM Bottle TOP SCH ×2 (09:27→21:44)
[2020-05-03] MEDS: FLUoxetine 20 MG Cap PO SCH (09:28)
[2020-05-03] MEDS: Potassium Chloride 10 MEQ Tab.ER PO SCH ×2 (09:28→21:41)
[2020-05-03] MEDS: Lidocaine 5% 700 MG Patch TOP SCH (09:28)
[2020-05-03] MEDS: Formoterol/Mometasone 100-5 MCG 8.8 GM Inhaler IH SCH ×2 (09:28→21:42)
[2020-05-03] MEDS: Famotidine 20 MG Tab PO SCH ×2 (09:28→21:43)
[2020-05-03] MEDS: ALPRAZolam 0.5 MG Tab PO PRN (13:33)
[2020-05-03] MEDS: Diltiazem 120 MG Cap.CD PO SCH (21:41)
[2020-05-03] MEDS: buPROPion 150 MG Tab.ER PO SCH (21:41)
[2020-05-03] MEDS: OXcarbazepine 300 MG Tab PO SCH (21:41)
[2020-05-03] MEDS: atorvaSTATin 20 MG Tab PO SCH (21:41)
[2020-05-03] MEDS: QUEtiapine 100 MG Tab PO SCH (21:42)
[2020-05-03] MEDS: traZODone 100 MG Tab PO SCH (21:42)
[2020-05-04] MEDS: HYDROmorphone 2 MG Tab PO PRN ×2 (09:11→15:27)
[2020-05-04] MEDS: ALPRAZolam 1 MG Tab PO SCH (09:11)
[2020-05-04] MEDS: Gabapentin 600 MG Tab PO SCH ×3 (09:12→20:58)
[2020-05-04] MEDS: Acetaminophen 500 MG Tab PO SCH ×3 (09:12→20:57)
[2020-05-04] MEDS: Potassium Chloride 10 MEQ Tab.ER PO SCH ×2 (09:13→20:57)
[2020-05-04] MEDS: Furosemide 40 MG Tab PO SCH ×2 (09:13→13:30)
[2020-05-04] MEDS: Diclofenac Sodium 1% Gel 100 GM Tube TOP SCH ×2 (09:13→21:03)
[2020-05-04] MEDS: busPIRone 15 MG Tab PO SCH ×2 (09:13→20:57)
[2020-05-04] MEDS: Loratadine 10 MG Tab PO SCH (09:13)
[2020-05-04] MEDS: Famotidine 20 MG Tab PO SCH ×2 (09:13→20:57)
[2020-05-04] MEDS: Lidocaine 5% 700 MG Patch TOP SCH (09:14)
[2020-05-04] MEDS: Nystatin Topical Powder 15 GM Bottle TOP SCH ×2 (09:14→21:02)
[2020-05-04] MEDS: Formoterol/Mometasone 100-5 MCG 8.8 GM Inhaler IH SCH ×2 (09:14→20:58)
[2020-05-04] MEDS: Ondansetron 4 MG Tab.DIS PO PRN (09:35)
[2020-05-04] MEDS ORDERED: FLU VACC QS2020-21(6MOS UP)/PF 60 MCG/0.5 ML SYRINGE IM ONE (11:00)
[2020-05-04] MEDS: FLUoxetine 20 MG Cap PO SCH (13:30)
[2020-05-04] MEDS: ALPRAZolam 0.5 MG Tab PO PRN ×2 (13:30→19:20)
[2020-05-04] MEDS: traZODone 100 MG Tab PO SCH (20:57)
[2020-05-04] MEDS: atorvaSTATin 20 MG Tab PO SCH (20:57)
[2020-05-04] MEDS: Diltiazem 120 MG Cap.CD PO SCH (20:57)
[2020-05-04] MEDS: OXcarbazepine 300 MG Tab PO SCH (20:57)
[2020-05-04] MEDS: QUEtiapine 100 MG Tab PO SCH (20:58)
[2020-05-04] MEDS: buPROPion 150 MG Tab.ER PO SCH (21:00)
[2020-05-05] MEDS: Furosemide 40 MG Tab PO SCH ×2 (09:05→13:51)
[2020-05-05] MEDS: Formoterol/Mometasone 100-5 MCG 8.8 GM Inhaler IH SCH ×2 (09:07→21:11)
[2020-05-05] MEDS: Loratadine 10 MG Tab PO SCH (09:07)
[2020-05-05] MEDS: Gabapentin 600 MG Tab PO SCH ×3 (09:08→21:12)
[2020-05-05] MEDS: Potassium Chloride 10 MEQ Tab.ER PO SCH ×2 (09:08→21:12)
[2020-05-05] MEDS: FLUoxetine 20 MG Cap PO SCH (09:09)
[2020-05-05] MEDS: Acetaminophen 500 MG Tab PO SCH ×3 (09:09→21:13)
[2020-05-05] MEDS: Famotidine 20 MG Tab PO SCH ×2 (09:09→21:12)
[2020-05-05] MEDS: busPIRone 15 MG Tab PO SCH ×2 (09:10→21:11)
[2020-05-05] MEDS: ALPRAZolam 1 MG Tab PO SCH (09:13)
[2020-05-05] MEDS: Lidocaine 5% 700 MG Patch TOP SCH (10:34)
[2020-05-05] MEDS: Nystatin Topical Powder 15 GM Bottle TOP SCH ×2 (10:35→21:30)
[2020-05-05] MEDS: Diclofenac Sodium 1% Gel 100 GM Tube TOP SCH ×2 (10:36→21:30)
--- NOTE | 2020-05-05 13:45 | PN ---
DATE SEEN: 05/05/2020 HISTORY: Alvina is a 54-year-old resident from [place], [place], who fell and injured her right ankle. She was found to have an Achilles rupture and underwent surgery on approximately April 01, 2020. She was scheduled to be nonweightbearing for 4 to 6 weeks, and she is now scheduled for a followup with her motor block mechanic on May 08, 2020. Alvina has been getting therapy, but recovering slowly and has a lot of sessions where she just does not cooperate with a full effort to recuperate as fast as she should. She is still taking hydromorphone now nearly 6 weeks after her surgery. She reports she is otherwise feeling okay, but she has most pain in her left knee, she says, because her left leg is doing all the work since she is nonweightbearing on the right. She has been very compliant with the nonweightbearing, however, and occupational and physical therapy have been unable to keep her off her right foot. PHYSICAL EXAMINATION: GENERAL: She is alert and comfortable. She is in no visible discomfort while sitting. LUNGS: Clear to the bases. HEART: Regular. ABDOMEN: Soft. She did have a cough during the exam and coughed up a small amount of yellowish phlegm. EXTREMITIES: Show no significant edema. She has a CAM walker style boot on the right ankle and David wraps over both lower extremities. ASSESSMENT: 1. 5 to 6 weeks postop right Achilles repair. 2. Osteoarthritis, knees, status post bilateral knee arthroplasties and soreness in the left knee. 3. Chronic obstructive pulmonary disease with smoker and bronchitis. 4. Prolonged narcotic usage postoperative. PLAN: I have discussed with her the pain medication management. She states she is taking it twice a day now. I will cut her down to 1 mg hydromorphone twice a day and if her podiatry report on Friday shows adequate healing without major complications, we will plan to switch her to nonnarcotic medication. Continue therapy as directed. /[id number] ANDRE/KINSEY
[2020-05-05] MEDS: HYDROmorphone 2 MG Tab PO PRN (13:51)
[2020-05-05] MEDS: ALPRAZolam 0.5 MG Tab PO PRN (15:11)
[2020-05-05] MEDS: atorvaSTATin 20 MG Tab PO SCH (21:12)
[2020-05-05] MEDS: QUEtiapine 100 MG Tab PO SCH (21:13)
[2020-05-05] MEDS: buPROPion 150 MG Tab.ER PO SCH (21:13)
[2020-05-05] MEDS: traZODone 100 MG Tab PO SCH (21:13)
[2020-05-05] MEDS: OXcarbazepine 300 MG Tab PO SCH (21:13)
[2020-05-05] MEDS: Diltiazem 120 MG Cap.CD PO SCH (21:31)
[2020-05-06] MEDS: HYDROmorphone 2 MG Tab PO PRN ×3 (00:32→20:46)
[2020-05-06] MEDS: Furosemide 40 MG Tab PO SCH ×2 (09:44→15:15)
[2020-05-06] MEDS: ALPRAZolam 1 MG Tab PO SCH (09:45)
[2020-05-06] MEDS: Gabapentin 600 MG Tab PO SCH ×3 (09:45→20:11)
[2020-05-06] MEDS: busPIRone 15 MG Tab PO SCH ×2 (09:46→20:11)
[2020-05-06] MEDS: Loratadine 10 MG Tab PO SCH (09:46)
[2020-05-06] MEDS: FLUoxetine 20 MG Cap PO SCH (09:47)
[2020-05-06] MEDS: Potassium Chloride 10 MEQ Tab.ER PO SCH ×2 (09:47→20:11)
[2020-05-06] MEDS: Famotidine 20 MG Tab PO SCH ×2 (09:47→20:11)
[2020-05-06] MEDS: Formoterol/Mometasone 100-5 MCG 8.8 GM Inhaler IH SCH ×2 (09:48→20:36)
[2020-05-06] MEDS: Acetaminophen 500 MG Tab PO SCH ×3 (09:48→20:12)
[2020-05-06] MEDS: Lidocaine 5% 700 MG Patch TOP SCH (09:49)
[2020-05-06] MEDS: Diclofenac Sodium 1% Gel 100 GM Tube TOP SCH ×2 (09:49→20:37)
[2020-05-06] MEDS: Nystatin Topical Powder 15 GM Bottle TOP SCH ×3 (09:50→20:16)
[2020-05-06] MEDS: ALPRAZolam 0.5 MG Tab PO PRN (13:06)
[2020-05-06] MEDS: atorvaSTATin 20 MG Tab PO SCH (20:11)
[2020-05-06] MEDS: QUEtiapine 100 MG Tab PO SCH (20:12)
[2020-05-06] MEDS: buPROPion 150 MG Tab.ER PO SCH (20:12)
[2020-05-06] MEDS: OXcarbazepine 300 MG Tab PO SCH (20:12)
[2020-05-06] MEDS: traZODone 100 MG Tab PO SCH (20:12)
[2020-05-06] MEDS: Diltiazem 120 MG Cap.CD PO SCH (20:36)
[2020-05-07] MEDS: Furosemide 40 MG Tab PO SCH ×2 (08:58→14:19)
[2020-05-07] MEDS: Gabapentin 600 MG Tab PO SCH ×3 (09:23→21:20)
[2020-05-07] MEDS: ALPRAZolam 1 MG Tab PO SCH (09:23)
[2020-05-07] MEDS: Formoterol/Mometasone 100-5 MCG 8.8 GM Inhaler IH SCH ×2 (09:50→21:15)
[2020-05-07] MEDS: Lidocaine 5% 700 MG Patch TOP SCH (09:50)
[2020-05-07] MEDS: Loratadine 10 MG Tab PO SCH (09:51)
[2020-05-07] MEDS: Potassium Chloride 10 MEQ Tab.ER PO SCH ×2 (09:51→21:15)
[2020-05-07] MEDS: Acetaminophen 500 MG Tab PO SCH ×3 (09:51→21:16)
[2020-05-07] MEDS: Famotidine 20 MG Tab PO SCH ×2 (09:52→21:15)
[2020-05-07] MEDS: busPIRone 15 MG Tab PO SCH ×2 (09:52→21:14)
[2020-05-07] MEDS: FLUoxetine 20 MG Cap PO SCH (09:52)
[2020-05-07] MEDS: Nystatin Topical Powder 15 GM Bottle TOP SCH ×2 (09:53→21:34)
[2020-05-07] MEDS: Diclofenac Sodium 1% Gel 100 GM Tube TOP SCH ×2 (09:53→21:34)
[2020-05-07] MEDS: HYDROmorphone 2 MG Tab PO PRN ×2 (15:29→21:20)
[2020-05-07] MEDS: atorvaSTATin 20 MG Tab PO SCH (21:15)
[2020-05-07] MEDS: traZODone 100 MG Tab PO SCH (21:15)
[2020-05-07] MEDS: QUEtiapine 100 MG Tab PO SCH (21:15)
[2020-05-07] MEDS: OXcarbazepine 300 MG Tab PO SCH (21:15)
[2020-05-07] MEDS: buPROPion 150 MG Tab.ER PO SCH (21:16)
[2020-05-07] MEDS: Diltiazem 120 MG Cap.CD PO SCH (21:33)
[2020-05-08] MEDS: Gabapentin 600 MG Tab PO SCH ×3 (08:12→20:31)
[2020-05-08] MEDS: ALPRAZolam 1 MG Tab PO SCH (08:12)
[2020-05-08] MEDS: Furosemide 40 MG Tab PO SCH ×2 (08:13→13:53)
[2020-05-08] MEDS: busPIRone 15 MG Tab PO SCH ×2 (08:13→20:34)
[2020-05-08] MEDS: Acetaminophen 500 MG Tab PO SCH ×3 (08:14→20:37)
[2020-05-08] MEDS: Loratadine 10 MG Tab PO SCH (08:14)
[2020-05-08] MEDS: Diclofenac Sodium 1% Gel 100 GM Tube TOP SCH ×2 (08:14→20:40)
[2020-05-08] MEDS: Formoterol/Mometasone 100-5 MCG 8.8 GM Inhaler IH SCH ×2 (08:14→20:41)
[2020-05-08] MEDS: Famotidine 20 MG Tab PO SCH ×2 (08:15→20:38)
[2020-05-08] MEDS: Lidocaine 5% 700 MG Patch TOP SCH (08:15)
[2020-05-08] MEDS: Potassium Chloride 10 MEQ Tab.ER PO SCH ×2 (08:15→20:37)
[2020-05-08] MEDS: FLUoxetine 20 MG Cap PO SCH (08:15)
[2020-05-08] MEDS: Nystatin Topical Powder 15 GM Bottle TOP SCH ×2 (08:16→20:39)
--- NOTE | 2020-05-08 11:50 | PN ---
DATE SEEN: 05/08/2020 HISTORY: Alvina is a 54-year-old woman who underwent Achilles tendon repair after rupture. She has been nonweightbearing since that time, getting therapy. She has also been receiving hydromorphone since the surgery. On Friday, I decreased her dose to 1 mg b.i.d. p.r.n. She has an appointment with her lead sharepoint developer today, and if cleared for weightbearing and adequate healing, I have discussed with her that we will go off the hydromorphone to nonnarcotic pain medications. She is otherwise feeling well. PHYSICAL EXAMINATION: VITAL SIGNS: Show her blood pressure to be 120/68, pulse 65, temperature 97.8, O2 saturation 92% on room air. Other medications are reviewed and we will continue same. Continue with therapy as directed by her lead sharepoint developer with a goal of being discharged to home when able. /[id number] ANDRE/KINSEY
[2020-05-08] MEDS: HYDROmorphone 2 MG Tab PO PRN ×2 (17:10→23:11)
[2020-05-08] MEDS: OXcarbazepine 300 MG Tab PO SCH (20:33)
[2020-05-08] MEDS: buPROPion 150 MG Tab.ER PO SCH (20:34)
[2020-05-08] MEDS: atorvaSTATin 20 MG Tab PO SCH (20:35)
[2020-05-08] MEDS: traZODone 100 MG Tab PO SCH (20:36)
[2020-05-08] MEDS: QUEtiapine 100 MG Tab PO SCH (20:37)
[2020-05-08] MEDS: Diltiazem 120 MG Cap.CD PO SCH (20:44)
[2020-05-09] MEDS ORDERED: Acetaminophen 325 MG Tab PO PRN (07:53)
[2020-05-09] MEDS: busPIRone 15 MG Tab PO SCH ×2 (08:34→20:56)
[2020-05-09] MEDS: Furosemide 40 MG Tab PO SCH ×2 (08:35→17:10)
[2020-05-09] MEDS: Formoterol/Mometasone 100-5 MCG 8.8 GM Inhaler IH SCH ×2 (08:36→20:58)
[2020-05-09] MEDS: Loratadine 10 MG Tab PO SCH (08:36)
[2020-05-09] MEDS: Potassium Chloride 10 MEQ Tab.ER PO SCH ×2 (08:37→20:59)
[2020-05-09] MEDS: Famotidine 20 MG Tab PO SCH ×2 (08:37→21:00)
[2020-05-09] MEDS: FLUoxetine 20 MG Cap PO SCH (08:37)
[2020-05-09] MEDS: Diclofenac Sodium 1% Gel 100 GM Tube TOP SCH ×2 (08:38→21:03)
[2020-05-09] MEDS: Lidocaine 5% 700 MG Patch TOP SCH (08:39)
[2020-05-09] MEDS: Gabapentin 600 MG Tab PO SCH ×3 (08:45→21:00)
[2020-05-09] MEDS: ALPRAZolam 1 MG Tab PO SCH (08:45)
[2020-05-09] MEDS: Acetaminophen 325 MG Tab PO PRN ×3 (08:51→21:05)
[2020-05-09] MEDS ORDERED: Acetaminophen 500 MG Tab PO SCH (09:00)
[2020-05-09] MEDS: Nystatin Topical Powder 15 GM Bottle TOP SCH ×2 (09:30→21:00)
[2020-05-09] MEDS: Diltiazem 120 MG Cap.CD PO SCH (20:57)
[2020-05-09] MEDS: atorvaSTATin 20 MG Tab PO SCH (20:59)
[2020-05-09] MEDS: QUEtiapine 100 MG Tab PO SCH (21:00)
[2020-05-09] MEDS: traZODone 100 MG Tab PO SCH (21:01)
[2020-05-09] MEDS: OXcarbazepine 300 MG Tab PO SCH (21:02)
[2020-05-09] MEDS: buPROPion 150 MG Tab.ER PO SCH (21:04)
[2020-05-10] MEDS: busPIRone 15 MG Tab PO SCH ×2 (09:40→20:29)
[2020-05-10] MEDS: Furosemide 40 MG Tab PO SCH ×2 (09:40→14:15)
[2020-05-10] MEDS: Loratadine 10 MG Tab PO SCH (09:41)
[2020-05-10] MEDS: Lidocaine 5% 700 MG Patch TOP SCH (09:42)
[2020-05-10] MEDS: Potassium Chloride 10 MEQ Tab.ER PO SCH ×2 (09:42→20:30)
[2020-05-10] MEDS: Gabapentin 600 MG Tab PO SCH ×3 (09:44→20:30)
[2020-05-10] MEDS: Nystatin Topical Powder 15 GM Bottle TOP SCH ×2 (09:44→20:23)
[2020-05-10] MEDS: Famotidine 20 MG Tab PO SCH ×2 (09:45→20:30)
[2020-05-10] MEDS: Diclofenac Sodium 1% Gel 100 GM Tube TOP SCH ×2 (09:46→20:31)
[2020-05-10] MEDS: FLUoxetine 20 MG Cap PO SCH (09:46)
[2020-05-10] MEDS: ALPRAZolam 1 MG Tab PO SCH (09:47)
[2020-05-10] MEDS: Formoterol/Mometasone 100-5 MCG 8.8 GM Inhaler IH SCH ×2 (09:48→20:29)
[2020-05-10] MEDS: Acetaminophen 325 MG Tab PO PRN ×3 (09:50→18:27)
[2020-05-10] MEDS: Ondansetron 4 MG Tab.DIS PO PRN (09:51)
[2020-05-10] MEDS: ALPRAZolam 0.5 MG Tab PO PRN (18:51)
[2020-05-10] MEDS: Diltiazem 120 MG Cap.CD PO SCH (20:29)
[2020-05-10] MEDS: atorvaSTATin 20 MG Tab PO SCH (20:30)
[2020-05-10] MEDS: QUEtiapine 100 MG Tab PO SCH (20:30)
[2020-05-10] MEDS: buPROPion 150 MG Tab.ER PO SCH (20:31)
[2020-05-10] MEDS: OXcarbazepine 300 MG Tab PO SCH (20:31)
[2020-05-10] MEDS: traZODone 100 MG Tab PO SCH (20:31)
[2020-05-11] MEDS: Famotidine 20 MG Tab PO SCH ×2 (09:51→21:08)
[2020-05-11] MEDS: FLUoxetine 20 MG Cap PO SCH (09:51)
[2020-05-11] MEDS: Furosemide 40 MG Tab PO SCH ×3 (09:51→13:13)
[2020-05-11] MEDS: Loratadine 10 MG Tab PO SCH (09:51)
[2020-05-11] MEDS: Nystatin Topical Powder 15 GM Bottle TOP SCH ×2 (09:51→21:15)
[2020-05-11] MEDS: Potassium Chloride 10 MEQ Tab.ER PO SCH ×2 (09:51→21:07)
[2020-05-11] MEDS: busPIRone 15 MG Tab PO SCH ×2 (09:51→21:05)
[2020-05-11] MEDS: ALPRAZolam 1 MG Tab PO SCH (09:52)
[2020-05-11] MEDS: Diclofenac Sodium 1% Gel 100 GM Tube TOP SCH ×2 (09:52→21:10)
[2020-05-11] MEDS: Ondansetron 4 MG Tab.DIS PO PRN (09:52)
[2020-05-11] MEDS: Gabapentin 600 MG Tab PO SCH ×4 (09:53→21:07)
[2020-05-11] MEDS: Lidocaine 5% 700 MG Patch TOP SCH (09:53)
[2020-05-11] MEDS: Formoterol/Mometasone 100-5 MCG 8.8 GM Inhaler IH SCH ×2 (09:55→21:06)
[2020-05-11] MEDS: Acetaminophen 325 MG Tab PO PRN ×2 (12:51→18:24)
[2020-05-11] MEDS: ALPRAZolam 0.5 MG Tab PO PRN ×2 (12:51→18:54)
[2020-05-11] MEDS: atorvaSTATin 20 MG Tab PO SCH (21:07)
[2020-05-11] MEDS: traZODone 100 MG Tab PO SCH (21:09)
[2020-05-11] MEDS: QUEtiapine 100 MG Tab PO SCH (21:09)
[2020-05-11] MEDS: OXcarbazepine 300 MG Tab PO SCH (21:10)
[2020-05-11] MEDS: buPROPion 150 MG Tab.ER PO SCH (21:11)
[2020-05-11] MEDS: Diltiazem 120 MG Cap.CD PO SCH (21:15)
[2020-05-12] MEDS: FLUoxetine 20 MG Cap PO SCH (09:26)
[2020-05-12] MEDS: ALPRAZolam 1 MG Tab PO SCH (09:26)
[2020-05-12] MEDS: Loratadine 10 MG Tab PO SCH (09:26)
[2020-05-12] MEDS: Furosemide 40 MG Tab PO SCH ×2 (09:27→13:56)
[2020-05-12] MEDS: busPIRone 15 MG Tab PO SCH ×2 (09:27→20:17)
[2020-05-12] MEDS: Potassium Chloride 10 MEQ Tab.ER PO SCH ×2 (09:27→20:19)
[2020-05-12] MEDS: Famotidine 20 MG Tab PO SCH ×2 (09:27→20:20)
[2020-05-12] MEDS: Formoterol/Mometasone 100-5 MCG 8.8 GM Inhaler IH SCH ×2 (09:28→20:19)
[2020-05-12] MEDS: Lidocaine 5% 700 MG Patch TOP SCH (09:28)
[2020-05-12] MEDS: Gabapentin 600 MG Tab PO SCH ×3 (09:31→20:35)
[2020-05-12] MEDS: Diclofenac Sodium 1% Gel 100 GM Tube TOP SCH ×2 (09:33→20:22)
[2020-05-12] MEDS: Nystatin Topical Powder 15 GM Bottle TOP SCH ×2 (09:34→20:18)
[2020-05-12] MEDS: Acetaminophen 325 MG Tab PO PRN ×2 (14:01→20:34)
[2020-05-12] MEDS: ALPRAZolam 0.5 MG Tab PO PRN (14:02)
[2020-05-12] MEDS: atorvaSTATin 20 MG Tab PO SCH (20:20)
[2020-05-12] MEDS: traZODone 100 MG Tab PO SCH (20:21)
[2020-05-12] MEDS: OXcarbazepine 300 MG Tab PO SCH (20:22)
[2020-05-12] MEDS: buPROPion 150 MG Tab.ER PO SCH (20:22)
[2020-05-12] MEDS: QUEtiapine 100 MG Tab PO SCH (20:23)
[2020-05-12] MEDS: Diltiazem 120 MG Cap.CD PO SCH (20:36)
[2020-05-13] MEDS: Furosemide 40 MG Tab PO SCH ×2 (09:24→14:10)
[2020-05-13] MEDS: busPIRone 15 MG Tab PO SCH ×2 (09:24→20:38)
[2020-05-13] MEDS: Gabapentin 600 MG Tab PO SCH ×3 (09:25→20:39)
[2020-05-13] MEDS: Potassium Chloride 10 MEQ Tab.ER PO SCH ×2 (09:25→20:42)
[2020-05-13] MEDS: Loratadine 10 MG Tab PO SCH (09:25)
[2020-05-13] MEDS: Famotidine 20 MG Tab PO SCH ×2 (09:26→20:44)
[2020-05-13] MEDS: FLUoxetine 20 MG Cap PO SCH (09:27)
[2020-05-13] MEDS: ALPRAZolam 1 MG Tab PO SCH (09:27)
[2020-05-13] MEDS: Diclofenac Sodium 1% Gel 100 GM Tube TOP SCH ×2 (09:27→20:47)
[2020-05-13] MEDS: Formoterol/Mometasone 100-5 MCG 8.8 GM Inhaler IH SCH ×2 (09:28→20:49)
[2020-05-13] MEDS: Nystatin Topical Powder 15 GM Bottle TOP SCH ×2 (09:28→20:48)
[2020-05-13] MEDS: Lidocaine 5% 700 MG Patch TOP SCH (09:38)
[2020-05-13] MEDS: Acetaminophen 325 MG Tab PO PRN ×2 (17:37→21:25)
[2020-05-13] MEDS: ALPRAZolam 0.5 MG Tab PO PRN (17:37)
[2020-05-13] MEDS: OXcarbazepine 300 MG Tab PO SCH (20:40)
[2020-05-13] MEDS: QUEtiapine 100 MG Tab PO SCH (20:41)
[2020-05-13] MEDS: traZODone 100 MG Tab PO SCH (20:41)
[2020-05-13] MEDS: buPROPion 150 MG Tab.ER PO SCH (20:41)
[2020-05-13] MEDS: atorvaSTATin 20 MG Tab PO SCH (20:45)
[2020-05-13] MEDS: Diltiazem 120 MG Cap.CD PO SCH (20:53)
[2020-05-14] MEDS: Furosemide 40 MG Tab PO SCH ×2 (08:57→14:00)
[2020-05-14] MEDS: Famotidine 20 MG Tab PO SCH ×2 (08:57→20:29)
[2020-05-14] MEDS: FLUoxetine 20 MG Cap PO SCH (08:57)
[2020-05-14] MEDS: Potassium Chloride 10 MEQ Tab.ER PO SCH ×2 (08:57→20:28)
[2020-05-14] MEDS: Loratadine 10 MG Tab PO SCH (08:57)
[2020-05-14] MEDS: Nystatin Topical Powder 15 GM Bottle TOP SCH ×2 (08:58→20:29)
[2020-05-14] MEDS: busPIRone 15 MG Tab PO SCH ×2 (08:58→20:18)
[2020-05-14] MEDS: Formoterol/Mometasone 100-5 MCG 8.8 GM Inhaler IH SCH ×2 (08:59→20:28)
[2020-05-14] MEDS: Diclofenac Sodium 1% Gel 100 GM Tube TOP SCH ×2 (09:03→20:31)
[2020-05-14] MEDS: Ondansetron 4 MG Tab.DIS PO PRN ×2 (09:16→21:09)
[2020-05-14] MEDS: ALPRAZolam 1 MG Tab PO SCH (09:16)
[2020-05-14] MEDS: Gabapentin 600 MG Tab PO SCH ×3 (09:16→20:29)
[2020-05-14] MEDS: Lidocaine 5% 700 MG Patch TOP SCH (09:16)
[2020-05-14] MEDS: Acetaminophen 325 MG Tab PO PRN ×2 (11:29→21:22)
[2020-05-14] MEDS ORDERED: hydrOXYzine HCl 50 MG/ML SDV IM ONE (13:18)
[2020-05-14] MEDS ORDERED: Dexamethasone 4 MG/ML 5 ML MDV IM ONE (13:18)
[2020-05-14] MEDS ORDERED: Dexamethasone 4 MG/ML SDV ONE (13:24)
[2020-05-14] MEDS: ALPRAZolam 0.5 MG Tab PO PRN ×2 (16:33→21:23)
[2020-05-14] MEDS: atorvaSTATin 20 MG Tab PO SCH (20:29)
[2020-05-14] MEDS: QUEtiapine 100 MG Tab PO SCH (20:30)
[2020-05-14] MEDS: OXcarbazepine 300 MG Tab PO SCH (20:30)
[2020-05-14] MEDS: traZODone 100 MG Tab PO SCH (20:30)
[2020-05-14] MEDS: buPROPion 150 MG Tab.ER PO SCH (20:31)
[2020-05-14] MEDS: Diltiazem 120 MG Cap.CD PO SCH (20:31)
[2020-05-14] MEDS: hydrOXYzine HCl 25 MG Tab PO PRN (21:27)
[2020-05-15] MEDS: Famotidine 20 MG Tab PO SCH ×2 (08:58→21:14)
[2020-05-15] MEDS: Loratadine 10 MG Tab PO SCH (08:58)
[2020-05-15] MEDS: busPIRone 15 MG Tab PO SCH ×2 (08:58→21:13)
[2020-05-15] MEDS: Furosemide 40 MG Tab PO SCH ×2 (08:58→14:07)
[2020-05-15] MEDS: Potassium Chloride 10 MEQ Tab.ER PO SCH ×2 (08:59→21:13)
[2020-05-15] MEDS: Formoterol/Mometasone 100-5 MCG 8.8 GM Inhaler IH SCH ×2 (08:59→21:13)
[2020-05-15] MEDS: Lidocaine 5% 700 MG Patch TOP SCH (08:59)
[2020-05-15] MEDS: FLUoxetine 20 MG Cap PO SCH (09:01)
[2020-05-15] MEDS: Nystatin Topical Powder 15 GM Bottle TOP SCH ×2 (09:01→21:14)
[2020-05-15] MEDS: Gabapentin 600 MG Tab PO SCH ×3 (09:01→21:20)
[2020-05-15] MEDS: ALPRAZolam 1 MG Tab PO SCH (09:01)
[2020-05-15] MEDS: Diclofenac Sodium 1% Gel 100 GM Tube TOP SCH ×2 (09:01→21:16)
[2020-05-15] MEDS: Acetaminophen 325 MG Tab PO PRN ×3 (09:05→18:17)
[2020-05-15] MEDS: hydrOXYzine HCl 25 MG Tab PO PRN ×3 (09:05→18:21)
[2020-05-15] MEDS: Ondansetron 4 MG Tab.DIS PO PRN ×2 (09:11→14:08)
[2020-05-15] MEDS: ALPRAZolam 0.5 MG Tab PO PRN (14:08)
[2020-05-15] MEDS ORDERED: Magnesium Oxide 400 MG Tab PO ONE ×2 (16:00→18:04)
[2020-05-15] MEDS: Diazepam 5 MG Tab PO PRN (18:16)
[2020-05-15] MEDS: atorvaSTATin 20 MG Tab PO SCH (21:14)
[2020-05-15] MEDS: QUEtiapine 100 MG Tab PO SCH (21:15)
[2020-05-15] MEDS: traZODone 100 MG Tab PO SCH (21:15)
[2020-05-15] MEDS: buPROPion 150 MG Tab.ER PO SCH (21:16)
[2020-05-15] MEDS: OXcarbazepine 300 MG Tab PO SCH (21:16)
[2020-05-15] MEDS: Diltiazem 120 MG Cap.CD PO SCH (21:17)
[2020-05-16] MEDS: Potassium Chloride 10 MEQ Tab.ER PO SCH ×2 (08:20→21:18)
[2020-05-16] MEDS: Famotidine 20 MG Tab PO SCH ×2 (08:20→21:19)
[2020-05-16] MEDS: FLUoxetine 20 MG Cap PO SCH (08:20)
[2020-05-16] MEDS: Loratadine 10 MG Tab PO SCH (08:20)
[2020-05-16] MEDS: busPIRone 15 MG Tab PO SCH ×2 (08:20→21:17)
[2020-05-16] MEDS: Furosemide 40 MG Tab PO SCH ×2 (08:20→14:46)
[2020-05-16] MEDS: Gabapentin 600 MG Tab PO SCH ×3 (08:21→21:18)
[2020-05-16] MEDS: Nystatin Topical Powder 15 GM Bottle TOP SCH ×2 (08:21→21:18)
[2020-05-16] MEDS: Acetaminophen 325 MG Tab PO PRN ×2 (08:21→14:43)
[2020-05-16] MEDS: hydrOXYzine HCl 25 MG Tab PO PRN (08:21)
[2020-05-16] MEDS: ALPRAZolam 1 MG Tab PO SCH (08:21)
[2020-05-16] MEDS: Diclofenac Sodium 1% Gel 100 GM Tube TOP SCH ×2 (08:22→21:19)
[2020-05-16] MEDS: Lidocaine 5% 700 MG Patch TOP SCH (08:22)
[2020-05-16] MEDS: Formoterol/Mometasone 100-5 MCG 8.8 GM Inhaler IH SCH ×2 (08:23→21:17)
[2020-05-16] MEDS: Ondansetron 4 MG Tab.DIS PO PRN ×2 (08:27→14:43)
[2020-05-16] MEDS: Magnesium Oxide 400 MG Tab PO SCH ×3 (10:28→23:27)
[2020-05-16] MEDS: Diazepam 5 MG Tab PO PRN (10:29)
[2020-05-16] MEDS ORDERED: Haloperidol Lactate 5 MG/ML SDV IM ONE (13:47)
[2020-05-16] MEDS ORDERED: diphenhydrAMINE 50 MG/ML SDV IM PRN (13:47)
[2020-05-16] MEDS: ALPRAZolam 0.5 MG Tab PO PRN (14:43)
[2020-05-16] MEDS: Diltiazem 120 MG Cap.CD PO SCH (21:17)
[2020-05-16] MEDS: atorvaSTATin 20 MG Tab PO SCH (21:18)
[2020-05-16] MEDS: QUEtiapine 100 MG Tab PO SCH (21:19)
[2020-05-16] MEDS: OXcarbazepine 300 MG Tab PO SCH (21:19)
[2020-05-16] MEDS: traZODone 100 MG Tab PO SCH (21:19)
[2020-05-16] MEDS: buPROPion 150 MG Tab.ER PO SCH (21:20)
[2020-05-17] MEDS: Nystatin Topical Powder 15 GM Bottle TOP SCH ×2 (08:57→21:41)
[2020-05-17] MEDS: busPIRone 15 MG Tab PO SCH ×2 (08:58→21:40)
[2020-05-17] MEDS: Furosemide 40 MG Tab PO SCH ×2 (08:58→14:27)
[2020-05-17] MEDS: Potassium Chloride 10 MEQ Tab.ER PO SCH ×2 (08:59→21:41)
[2020-05-17] MEDS: Loratadine 10 MG Tab PO SCH (08:59)
[2020-05-17] MEDS: Lidocaine 5% 700 MG Patch TOP SCH (09:00)
[2020-05-17] MEDS: Famotidine 20 MG Tab PO SCH ×2 (09:04→21:41)
[2020-05-17] MEDS: FLUoxetine 20 MG Cap PO SCH (09:05)
[2020-05-17] MEDS: Diclofenac Sodium 1% Gel 100 GM Tube TOP SCH ×2 (09:05→21:43)
[2020-05-17] MEDS: Formoterol/Mometasone 100-5 MCG 8.8 GM Inhaler IH SCH ×2 (09:09→21:40)
[2020-05-17] MEDS: Ondansetron 4 MG Tab.DIS PO PRN (09:14)
[2020-05-17] MEDS: Gabapentin 600 MG Tab PO SCH ×3 (09:14→21:39)
[2020-05-17] MEDS: ALPRAZolam 1 MG Tab PO SCH (09:16)
[2020-05-17] MEDS: Acetaminophen 325 MG Tab PO PRN ×2 (14:31→19:00)
[2020-05-17] MEDS: atorvaSTATin 20 MG Tab PO SCH (21:41)
[2020-05-17] MEDS: QUEtiapine 100 MG Tab PO SCH (21:42)
[2020-05-17] MEDS: traZODone 100 MG Tab PO SCH (21:43)
[2020-05-17] MEDS: OXcarbazepine 300 MG Tab PO SCH (21:43)
[2020-05-17] MEDS: buPROPion 150 MG Tab.ER PO SCH (21:45)
[2020-05-17] MEDS: Diltiazem 120 MG Cap.CD PO SCH (21:46)
[2020-05-18] MEDS: Lidocaine 5% 700 MG Patch TOP SCH (08:16)
[2020-05-18] MEDS: Diclofenac Sodium 1% Gel 100 GM Tube TOP SCH (08:19)
[2020-05-18] MEDS: Nystatin Topical Powder 15 GM Bottle TOP SCH (08:19)
[2020-05-18] MEDS: ALPRAZolam 1 MG Tab PO SCH (08:58)
[2020-05-18] MEDS: Formoterol/Mometasone 100-5 MCG 8.8 GM Inhaler IH SCH (08:58)
[2020-05-18] MEDS: Gabapentin 600 MG Tab PO SCH ×2 (08:58→13:42)
[2020-05-18] MEDS: Furosemide 40 MG Tab PO SCH ×2 (08:58→13:42)
[2020-05-18] MEDS: Loratadine 10 MG Tab PO SCH (08:59)
[2020-05-18] MEDS: busPIRone 15 MG Tab PO SCH (08:59)
[2020-05-18] MEDS: Famotidine 20 MG Tab PO SCH (09:00)
[2020-05-18] MEDS: Potassium Chloride 10 MEQ Tab.ER PO SCH (09:00)
[2020-05-18] MEDS: FLUoxetine 20 MG Cap PO SCH (09:00)
[2020-05-18 10:07] VITALS: BP 133/86; PULSE 70
--- NOTE | 2020-05-18 11:43 | PCM.DCSUM1 ---
Discharge Summary - Hospital Course HPI Initial Comments: Alvina was admitted to swing bed for rehab therapies after having right Achilles tendon repair end of March. She had had a traumatic right ankle fracture in 2006, with plates and screws. The lateral hardware was removed and had Achilles lengthening procedure done but this failed. She had subsequent rupture of Right Achilles, she was at [facility] about 4 days prior to swing bed admission. She was to be non-weightbearing for 4-6 weeks. 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 History of Asthma/COPD, Depression, Anxiety, PTSD, remote chemical/alcohol abuse, has been sober & clean for 15 years and migraines. She is on Diltiazem for migraine prophylaxis. She sees [facility] for her mental health conditions. Diagnosis: Stroke: No - Discharge Data Discharge Date: 05/18/20 ([facility]) Discharge Disposition: Home, W Home Health Agency 06 Condition: Good - Referral to Home Health Date of Face to Face Encounter: 05/18/20 Reason for Homebound Status: s/p achilles tendon repair, partial weight bearing with cam boot Primary Care Physician: Karo Arguello NP Skilled Need: PT/OT/nursing - Discharge Diagnosis/Problem(s) (1) Achilles rupture, right SNOMED Code(s): 03898919727709140 ICD Code: S86.011A - STRAIN OF RIGHT ACHILLES TENDON, INITIAL ENCOUNTER Status: Acute Current Visit: Yes (2) S/P tendon repair SNOMED Code(s): 113109415, 459371064 ICD Code: Z98.890 - OTHER SPECIFIED POSTPROCEDURAL STATES Status: Acute Current Visit: Yes (3) PTSD (post-traumatic stress disorder) SNOMED Code(s): 61619806 ICD Code: F43.10 - POST-TRAUMATIC STRESS DISORDER, UNSPECIFIED Status: Acute Current Visit: Yes (4) Anxiety SNOMED Code(s): 25757838 ICD Code: F41.9 - ANXIETY DISORDER, UNSPECIFIED Status: Acute Current Visit: Yes (5) Depression SNOMED Code(s): 77583414 ICD Code: F32.9 - MAJOR DEPRESSIVE DISORDER, SINGLE EPISODE, UNSPECIFIED Status: Acute Current Visit: Yes (6) Migraine SNOMED Code(s): 91488921 ICD Code: G43.909 - MIGRAINE, UNSP, NOT INTRACTABLE, WITHOUT STATUS MIGRAINOSUS Status: Chronic Current Visit: No Problem Details: Haldol & Benadryl combination aborted her migraine that had persisted for 3 days. - Patient Summary/Data Consults: Consultations 04/04/20 13:33 OT Evaluation and Treatment [CONS] Routine Please Evaluate and Treat. OT Reason for Consult: Strengthening This query below is only for informational purposes and is not editable. PT Evaluation and Treatment [CONS] Routine Please Evaluate and Treat. PT Reason for Consult: Balance This query below is only for informational purposes and is not editable. 04/12/20 14:01 Consult to Dietary [Consult to Procurement Specialist] [CONS] Routine Comment: Physician Instructions: Quantity: Reason for Consult: Patient request due to weight gain Person Notified: Annabelle Date Notified: 04/12/20 Time Notified: 14:02 Hospital Course: Alvina was admitted to swing bed for rehab services PT/OT, non-weightbearing status from 04/04 through 05/08, started weight bearing with therapy on 05/09, she is on full weight bearing but only weight bearing about 75% at discharge. Her pain improved through her stay, was on Dilaudid 4 mg q6h as needed, decreased to 2 mg every 6hr as needed on 04/18, further decreased to 1 mg bid as needed on 05/05 then last dose was 05/08. She had her Prozac increased on 04/15 for worsening of her PTSD and help with pain control. Her mood improved with this and participated more with therapies. Also Lidocaine patch was added on 04/22. She went off Senna-S and bowel movements were controlled with diet and prune juice. She had Zoom visits with [facility] on 04/24 then weekly on Wednesdays. Flutter valve was added also on 04/15 to help mobilize secretions with her COPD/asthma, she did well this throughout stay. Started on Clotrimazole on 04/13 for yeast dermatitis in left abdominal fold, this was changed to Nystatin powder on 04/28 and will be discharged on this to use at home. She received her flu vaccine on 05/04. She was having migraine that did not respond to her usual abortive medications on 05/14, Dexamethasone 10 mg IM x 1 dose and Vistaril 50 mg IM x 1 dose helped minimally. Still having migraine on 05/15, added Magnesium 400 mg x 2 doses with Hydroxyzine 50 mg q4h as needed, Valium 5 mg tid as needed. Magnesium 400 mg tid for 3 doses ordered on 05/16. Her migraine was still rated at 8/10 so gave Haldol 5 mg IM x 1 & Benadryl 50 mg IM x 1 dose on 05/16, she actually slept and headache was mild only in frontal/occipital. She had Benadryl 50 mg IM q4h as needed but did not require any further doses. She progressed with PT/OT, see their notes, she was given 2 day letter and was due to go home on Friday but with weather predicted patient wanted to go home today. PT/OT were in agreement with this plan. She will continue PT/OT/nursing with [facility]. - Patient Instructions Diet: Regular Diet as Tolerated Activity: Full Weight Bearing Driving: Do Not Drive Showering/Bathing: May Shower Notify Provider of: Fever, Increased Pain, Swelling and Redness, Drainage, Nausea and/or Vomiting Other/Special Instructions: Follow up with Neuroscience on 06/08/2020 at 1pm. Follow up with Podiatry on 06/20/2020 at 130pm. Follow up with Orthopedics on 06/22/2020 at 115 pm. Follow up with Karo Arguello NP in 1 week for post hospital recheck. - Discharge Plan *PRESCRIPTION DRUG MONITORING PROGRAM REVIEWED*: Not Applicable *COPY OF PRESCRIPTION DRUG MONITORING REPORT IN PATIENT [place]: Not Applicable Prescriptions/Med Rec: busPIRone [Buspar] 30 mg PO BID 30 Days #60 tablet haloperidoL [Haldol] 2 mg PO Q6H PRN 14 Days #14 tab PRN Reason: Migraine Lidocaine 5% [Lidoderm 5%] 1,400 mg TOP DAILY 30 Days #60 patch Nystatin [Nystop] 0 gm TOP BID 30 Days #1 bottle FLUoxetine HCl [Prozac] 40 mg PO DAILY 20 Days #60 cap Home Medications: Home Meds Furosemide [Lasix] 40 mg PO BID 12/21/19 [History] Rivaroxaban [Xarelto] 20 mg BEDTIME 12/21/19 [History] Varenicline [Chantix] 1 mg PO BIDPC 12/21/19 [History] atorvaSTATin [Lipitor] 20 mg PO BEDTIME 12/21/19 [History] buPROPion HCL [Wellbutrin Xl] 150 mg PO BEDTIME 12/21/19 [History] traZODone 200 mg PO BEDTIME 12/21/19 [History] ALPRAZolam [Alprazolam] 0.5 mg PO TID MDD ANXIETY 04/04/20 [History] ALPRAZolam [Alprazolam] 1 mg PO DAILY 04/04/20 [History] Albuterol Sulfate [Albuterol Sulfate Hfa] 1 puff PO TID PRN 04/04/20 [History] Albuterol/Ipratropium [DuoNeb 3.0-0.5 MG/3 ML] 3 ml NEB QID PRN 04/04/20 [History] Baclofen 10 mg PO BID PRN 04/04/20 [History] Biotin 5,000 mcg PO BID 04/04/20 [History] Budesonide/Formoterol [Symbicort 80-4.5 MCG] 2 puff PO BID 04/04/20 [History] Calcium Citrate/Vitamin D3 [Calcium Cit 315-Vit D3 250 Tab] 1 tab PO BIDMEALS 04/04/20 [History] Cholecalciferol (Vitamin D3) [Vitamin D3] 1,000 unit PO DAILY 04/04/20 [History] Diclofenac Sodium [Voltaren 1% Gel] 2 g TOP BID 04/04/20 [History] Diltiazem HCl [Diltiazem 24Hr ER] 120 mg PO BEDTIME 04/04/20 [History] Docusate Sodium/Sennosides [Senna Plus] 1 tab PO BID PRN 04/04/20 [History] Famotidine 20 mg PO BID 04/04/20 [History] Gabapentin [Neurontin] 600 mg PO TID 04/04/20 [History] Linaclotide [Linzess] 145 mcg PO DAILY 04/04/20 [History] Loratadine 10 mg PO DAILY 04/04/20 [History] Magnesium Amino Acid Chelate [Magnesium] 100 mg PO DAILY 04/04/20 [History] Multivitamin 1 tab PO DAILY 04/04/20 [History] OXcarbazepine [Oxcarbazepine] 600 mg PO BEDTIME 04/04/20 [History] Ondansetron [Zofran ODT] 4 mg PO Q6H PRN 04/04/20 [History] Potassium Chloride [Klor-Con 10] 10 meq PO BID 04/04/20 [History] QUEtiapine Fumarate [Quetiapine Fumarate ER] 200 mg PO BEDTIME 04/04/20 [History] busPIRone HCl [busPIRone] 30 mg PO BID 04/04/20 [History] Acetaminophen [Tylenol] 650 mg PO Q4H PRN tablet 05/18/20 [Rx] FLUoxetine HCl [Prozac] 40 mg PO DAILY 20 Days #60 cap 05/18/20 [Rx] Lidocaine 5% [Lidoderm 5%] 1,400 mg TOP DAILY 30 Days #60 patch 05/18/20 [Rx] Nystatin [Nystop] 0 gm TOP BID 30 Days #1 bottle 05/18/20 [Rx] busPIRone [Buspar] 30 mg PO BID 30 Days #60 tablet 05/18/20 [Rx] haloperidoL [Haldol] 2 mg PO Q6H PRN 14 Days #14 tab 05/18/20 [Rx] Oxygen Therapy Mode: Room Air Patient Handouts: Recurrent Migraine Headache Referrals: Karo Arguello NP [Primary Care Provider] - - Discharge Summary/Plan Comment DC Time >30 min.: Yes - General Info Date of Service: 05/18/20 Subjective Update: She is feeling good today, states the Haldol & Benadryl aborted her headache. States she had been on Topiramate before but caused weird sensation to her face like something was always on her face. Her mood is better, pain is well controll ed. Having regular bowel movements with prune juice and diet changes. Functional Status: Reports: Pain Controlled, Tolerating Diet, Ambulating, Urinating. Denies: New Symptoms - Patient Data Vitals - Most Recent: Last Vital Signs Temp 97.7 F 05/18/20 08:55 Pulse 70 05/18/20 08:55 Resp 18 05/18/20 08:55 BP 133/86 05/18/20 08:55 Pulse Ox 93 L 05/18/20 08:55 Weight - Most Recent: 352 lb 7 oz Med Orders - Current: Current Medications Acetaminophen (Tylenol) 650 mg PO Q4H PRN PRN Reason: Pain Last Admin: 05/17/20 19:00 Dose: 650 mg Documented by: Albuterol (Ventolin Hfa) 0 gm INH Q6H PRN PRN Reason: sob Albuterol/Ipratropium (Duoneb 3.0-0.5 Mg/3 Ml) 3 ml NEB Q6H PRN PRN Reason: Wheezing Alprazolam (Xanax) 1 mg PO DAILY [facility] Last Admin: 05/18/20 08:58 Dose: 1 mg Documented by: Alprazolam (Xanax) 0.5 mg PO TID PRN PRN Reason: ANXIETY Last Admin: 05/16/20 14:43 Dose: 0.5 mg Documented by: Atorvastatin Calcium (Lipitor) 20 mg PO BEDTIME [facility] Last Admin: 05/17/20 21:41 Dose: 20 mg Documented by: Bupropion HCl (Wellbutrin Xl) 150 mg PO BEDTIME [facility] Last Admin: 05/17/20 21:45 Dose: 150 mg Documented by: Buspirone HCl (Buspar) 30 mg PO BID [facility] Last Admin: 05/18/20 08:59 Dose: 30 mg Documented by: Diclofenac Sodium (Voltaren 1% Gel) 2 gm TOP BID [facility] Last Admin: 05/18/20 08:19 Dose: 1 applic Documented by: Diltiazem HCl (Cardizem Cd) 120 mg PO BEDTIME [facility] Last Admin: 05/17/20 21:46 Dose: 120 mg Documented by: Diphenhydramine HCl (Benadryl) 50 mg IM Q4H PRN PRN Reason: Headache/Pain Last Admin: 05/16/20 14:38 Dose: 50 mg Documented by: Famotidine (Pepcid) 20 mg PO BID [facility] Last Admin: 05/18/20 09:00 Dose: 20 mg Documented by: Fluoxetine HCl (Prozac) 40 mg PO DAILY [facility] Last Admin: 05/18/20 09:00 Dose: 40 mg Documented by: Furosemide (Lasix) 40 mg PO BIDDIURETIC [facility] Last Admin: 05/18/20 08:58 Dose: 40 mg Documented by: Gabapentin (Neurontin) 600 mg PO TID [facility] Last Admin: 05/18/20 08:58 Dose: 600 mg Documented by: Lidocaine (Lidoderm 5%) 1,400 mg TOP DAILY [facility] Last Admin: 05/18/20 08:16 Dose: 1,400 mg Documented by: Loratadine (Claritin) 10 mg PO DAILY [facility] Last Admin: 05/18/20 08:59 Dose: 10 mg Documented by: Miscellaneous Information (Remove Patch) 2 ea TRDERM Q24H [facility] Last Admin: 05/17/20 21:42 Dose: 2 ea Documented by: Mometasone Furoate/Formoterol Fumar (Dulera 100-5 Mcg) 2 puff IH BID [facility] Last Admin: 05/18/20 08:58 Dose: 2 puff Documented by: Nystatin (Nystop) 0 gm TOP BID [facility] Last Admin: 05/18/20 08:19 Dose: Not Given Documented by: Ondansetron HCl (Zofran Odt) 4 mg PO Q4H PRN PRN Reason: Nausea/Vomiting Last Admin: 05/17/20 09:14 Dose: 4 mg Documented by: Oxcarbazepine (Trileptal) 600 mg PO BEDTIME [facility] Last Admin: 05/17/20 21:43 Dose: 600 mg Documented by: Potassium Chloride (Klor-Con 10) 10 meq PO BID [facility] Last Admin: 05/18/20 09:00 Dose: 10 meq Documented by: Quetiapine Fumarate (Seroquel) 200 mg PO BEDTIME [facility] Last Admin: 05/17/20 21:42 Dose: 200 mg Documented by: Rivaroxaban (Xarelto) 20 mg PO BEDTIME [facility] Last Admin: 05/17/20 21:44 Dose: 20 mg Documented by: Trazodone HCl (Trazodone) 200 mg PO BEDTIME [facility] Last Admin: 05/17/20 21:43 Dose: 200 mg Documented by: Varenicline (Chantix) 1 mg PO BID [facility] Last Admin: 05/18/20 08:59 Dose: 1 mg Documented by: Discontinued Medications Acetaminophen (Tylenol Extra Strength) 500 - 1,000 mg PO Q6H PRN PRN Reason: Pain Last Admin: 04/06/20 21:22 Dose: 1,000 mg Documented by: Acetaminophen (Tylenol Extra Strength) 1,000 mg PO TID [facility] Last Admin: 04/26/20 09:27 Dose: 1,000 mg Documented by: Acetaminophen (Tylenol Extra Strength) 500 mg PO TID [facility] Last Admin: 04/27/20 14:59 Dose: 500 mg Documented by: Acetaminophen (Tylenol Extra Strength) 1,000 mg PO TID [facility] Last Admin: 05/08/20 20:37 Dose: 1,000 mg Documented by: Acetaminophen (Tylenol) 650 mg PO Q6H PRN PRN Reason: Pain Acetaminophen (Tylenol Extra Strength) 650 mg PO TID [facility] Hydrocodone Bitart/Acetaminophen ([place] 325-5 Mg) 1 tab PO Q6H PRN PRN Reason: PAIN Chlorhexidine Gluconate (Peridex 0.12% Rinse) 15 ml PO BID [facility] Clotrimazole (Clotrimazole 1%) 0 gm TOP BID [facility] Last Admin: 04/27/20 08:53 Dose: 1 applic Documented by: Dexamethasone (Dexamethasone) 10 mg IM ONETIME ONE Stop: 05/14/20 13:19 Last Admin: 05/14/20 13:33 Dose: 10 mg Documented by: Dexamethasone (Dexamethasone) Confirm Administered Dose 12 mg .ROUTE .STK-MED ONE Stop: 05/14/20 13:25 Last Admin: 05/14/20 16:26 Dose: Not Given Documented by: Diazepam (Valium.) 5 mg PO TID PRN PRN Reason: Other Last Admin: 05/16/20 10:29 Dose: 5 mg Documented by: Fluoxetine HCl (Prozac) 20 mg PO DAILY [facility] Last Admin: 04/14/20 09:40 Dose: 20 mg Documented by: Haloperidol Lactate (Haldol) 5 mg IM ONETIME ONE Stop: 05/16/20 13:48 Last Admin: 05/16/20 14:40 Dose: 5 mg Documented by: Hydromorphone HCl (Dilaudid) 4 mg PO Q6H PRN PRN Reason: Pain Last Admin: 04/18/20 21:40 Dose: 4 mg Documented by: Hydromorphone HCl (Dilaudid) 2 mg PO Q6H PRN PRN Reason: Pain Last Admin: 04/11/20 04:39 Dose: 2 mg Documented by: Hydromorphone HCl (Dilaudid) 2 mg PO Q6H PRN PRN Reason: SEVERE PAIN Last Admin: 05/04/20 15:27 Dose: 2 mg Documented by: Hydromorphone HCl (Dilaudid) 1 mg PO BID PRN PRN Reason: SEVERE PAIN Last Admin: 05/08/20 23:11 Dose: 1 mg Documented by: Hydroxyzine HCl (Atarax) 50 mg PO Q4H PRN PRN Reason: Nausea Last Admin: 04/24/20 10:07 Dose: 50 mg Documented by: Hydroxyzine HCl (Vistaril) 50 mg IM ONETIME ONE Stop: 05/14/20 13:19 Last Admin: 05/14/20 13:33 Dose: 50 mg Documented by: Hydroxyzine HCl (Atarax) 50 mg PO Q4H PRN PRN Reason: Headache/Pain Last Admin: 05/16/20 08:21 Dose: 50 mg Documented by: Hydroxyzine Pamoate (Vistaril) 50 mg PO Q6H PRN PRN Reason: WITH HYDROCODONE FOR ITCHING Influenza Virus Vaccine (Fluzone Quad Syringe) 60 mcg IM .ONCE ONE Stop: 05/04/20 11:01 Last Admin: 05/04/20 13:31 Dose: 60 mcg Documented by: Magnesium Oxide (Magnesium Oxide) 400 mg PO ONETIME ONE Stop: 05/15/20 16:01 Last Admin: 05/15/20 15:44 Dose: 400 mg Documented by: Magnesium Oxide (Magnesium Oxide) 400 mg PO ONETIME ONE Stop: 05/15/20 18:05 Last Admin: 05/15/20 18:16 Dose: 400 mg Documented by: Magnesium Oxide (Magnesium Oxide) 400 mg PO TID@1000,1600,2300 [facility] Stop: 05/16/20 23:01 Last Admin: 05/16/20 23:27 Dose: 400 mg Documented by: Ondansetron HCl (Zofran Odt) 4 mg PO BID PRN PRN Reason: Nausea Oxycodone HCl (Oxycodone) 5 mg PO Q6H PRN PRN Reason: Pain Senna/Docusate Sodium (Senna Plus) 1 tab PO BID PRN PRN Reason: Constipation Last Admin: 04/04/20 21:04 Dose: 1 tab Documented by: Senna/Docusate Sodium (Senna Plus) 1 tab PO BID [facility] Last Admin: 04/22/20 09:31 Dose: Not Given Documented by: [facility] Last Admin: 04/04/20 19:45 Dose: Not Given Documented by: - Exam General: Reports: Alert, Oriented, Cooperative, No Acute Distress Lungs: Reports: Clear to Auscultation, Normal Respiratory Effort Cardiovascular: Reports: Regular Rate, Regular Rhythm GI/Abdominal Exam: Normal Bowel Sounds, Soft, Non-Tender, No Distention. No: Guarding, Rigid, Rebound, Tender Extremities: Other (CAM boot on RLE) Psy/Mental Status: Reports: Normal Affect, Normal Mood *Q Meaningful Use (DIS) - VTE *Q VTE Mechanical Contraindications *Q: Further Opinion Sought
[2020-05-18] MEDS: Acetaminophen 325 MG Tab PO PRN (17:36)
== END 2020-05-18 18:42 | disposition home health service (06) | DRG 949 ==
LOC: FB.MS 13:04
PROVIDERS: ADMIT Family Medicine; ATTEND Family Medicine
DX: S86.011D Strain of right Achilles tendon, subsequent encounter (principal); Z68.43 Body mass index [BMI] 50.0-59.9, adult; M17.0 Bilateral primary osteoarthritis of knee; J44.9 Chronic obstructive pulmonary disease, unspecified; F43.10 Post-traumatic stress disorder, unspecified; F41.9 Anxiety disorder, unspecified; F32.9 Major depressive disorder, single episode, unspecified; R60.0 Localized edema; I10 Essential (primary) hypertension; E78.5 Hyperlipidemia, unspecified; E66.01 Morbid (severe) obesity due to excess calories; D64.9 Anemia, unspecified; K21.9 Gastro-esophageal reflux disease without esophagitis; M81.0 Age-related osteoporosis without current pathological fracture; Z96.653 Presence of artificial knee joint, bilateral; F25.9 Schizoaffective disorder, unspecified; K59.09 Other constipation; G43.909 Migraine, unspecified, not intractable, without status migrainosus; F17.210 Nicotine dependence, cigarettes, uncomplicated; Z98.890 Other specified postprocedural states; Z86.718 Personal history of other venous thrombosis and embolism; Z88.0 Allergy status to penicillin; Z88.5 Allergy status to narcotic agent; Z88.7 Allergy status to serum and vaccine; Z88.8 Allergy status to other drugs, medicaments and biological substances; Z79.899 Other long term (current) drug therapy; Z90.49 Acquired absence of other specified parts of digestive tract; Z88.6 Allergy status to analgesic agent
CPT/HCPCS: 36415; 80053; 84443; 85025; 90686; 97110-GO; 97110-GP; 97116-GP; 97161-GP; 97165-GO; 97530-GO; 97530-GP; 97535-GO; 97542-GO; A9270-GY; J1100; J1200; J1630; J3410

== ENCOUNTER 2020-05-30 19:19 | Emergency (ER) | payer MEDICARE, MEDICAID, OTHER ==
[2020-05-30] MEDS ORDERED: Ondansetron 4 MG Tab.DIS PO ONE (19:20)
[2020-05-30] MEDS ORDERED: Sodium Chloride 0.9% 10 ML Syringe FLUSH PRN (19:50)
[2020-05-30] MEDS ORDERED: Sodium Chloride 0.9% 500 ML IV ONE (19:51)
[2020-05-30] MEDS ORDERED: diphenhydrAMINE 50 MG/ML SDV IVPUSH ONE (19:51)
[2020-05-30] MEDS ORDERED: Prochlorperazine 10 MG/2 ML SDV IVPUSH ONE (19:51)
--- NOTE | 2020-05-30 19:57 | EDM.PDOC ---
ED HPI GENERAL MEDICAL PROBLEM - General Chief Complaint: Respiratory Problem Stated Complaint: FEVER, COUGH Time Seen by Provider: 05/30/20 19:53 Source of Information: Reports: Patient History Limitations: Reports: No Limitations - History of Present Illness INITIAL COMMENTS - FREE TEXT/NARRATIVE: Presents with N/V/D, cough, SOB, and migraine since yesterday. Developed fevers to 102 today. Denies known exposure to COVID-19. Onset Date: 05/29/20 Mid-Anterior Chest Pain Score (Numeric/FACES): 6 headache Pain Score (Numeric/FACES): 10 - Related Data Allergies Allergy/AdvReac Type Severity Reaction Status Date / Time aspirin Allergy Airway Verified 12/21/19 22:10 Tightness codeine Allergy Airway Verified 12/21/19 22:10 Tightness methadone Allergy Hallucinati Verified 12/21/19 22:10 ons morphine Allergy Airway Verified 12/21/19 22:10 Tightness NSAIDS (Non-Steroidal Allergy Airway Verified 12/21/19 22:10 Anti-Inflamma Tightness Penicillins Allergy Airway Verified 12/21/19 22:10 Tightness theophylline Allergy Nausea Verified 12/21/19 22:10 Home Meds: Home Meds Furosemide [Lasix] 40 mg PO BID 12/21/19 [History] Rivaroxaban [Xarelto] 20 mg BEDTIME 12/21/19 [History] Varenicline [Chantix] 1 mg PO BIDPC 12/21/19 [History] atorvaSTATin [Lipitor] 20 mg PO BEDTIME 12/21/19 [History] buPROPion HCL [Wellbutrin Xl] 150 mg PO BEDTIME 12/21/19 [History] traZODone 200 mg PO BEDTIME 12/21/19 [History] ALPRAZolam [Alprazolam] 0.5 mg PO TID MDD ANXIETY 04/04/20 [History] ALPRAZolam [Alprazolam] 1 mg PO DAILY 04/04/20 [History] Albuterol Sulfate [Albuterol Sulfate Hfa] 1 puff PO TID PRN 04/04/20 [History] Albuterol/Ipratropium [DuoNeb 3.0-0.5 MG/3 ML] 3 ml NEB QID PRN 04/04/20 [History] Baclofen 10 mg PO BID PRN 04/04/20 [History] Biotin 5,000 mcg PO BID 04/04/20 [History] Budesonide/Formoterol [Symbicort 80-4.5 MCG] 2 puff PO BID 04/04/20 [History] Calcium Citrate/Vitamin D3 [Calcium Cit 315-Vit D3 250 Tab] 1 tab PO BIDMEALS 04/04/20 [History] Cholecalciferol (Vitamin D3) [Vitamin D3] 1,000 unit PO DAILY 04/04/20 [History] Diclofenac Sodium [Voltaren 1% Gel] 2 g TOP BID 04/04/20 [History] Diltiazem HCl [Diltiazem 24Hr ER] 120 mg PO BEDTIME 04/04/20 [History] Docusate Sodium/Sennosides [Senna Plus] 1 tab PO BID PRN 04/04/20 [History] Famotidine 20 mg PO BID 04/04/20 [History] Gabapentin [Neurontin] 600 mg PO TID 04/04/20 [History] Linaclotide [Linzess] 145 mcg PO DAILY 04/04/20 [History] Loratadine 10 mg PO DAILY 04/04/20 [History] Magnesium Amino Acid Chelate [Magnesium] 100 mg PO DAILY 04/04/20 [History] Multivitamin 1 tab PO DAILY 04/04/20 [History] OXcarbazepine [Oxcarbazepine] 600 mg PO BEDTIME 04/04/20 [History] Ondansetron [Zofran ODT] 4 mg PO Q6H PRN 04/04/20 [History] Potassium Chloride [Klor-Con 10] 10 meq PO BID 04/04/20 [History] QUEtiapine Fumarate [Quetiapine Fumarate ER] 200 mg PO BEDTIME 04/04/20 [History] busPIRone HCl [busPIRone] 30 mg PO BID 04/04/20 [History] Acetaminophen [Tylenol] 650 mg PO Q4H PRN tablet 05/18/20 [Rx] FLUoxetine HCl [Prozac] 40 mg PO DAILY 20 Days #60 cap 05/18/20 [Rx] Lidocaine 5% [Lidoderm 5%] 1,400 mg TOP DAILY 30 Days #60 patch 05/18/20 [Rx] Nystatin [Nystop] 0 gm TOP BID 30 Days #1 bottle 10/15/20 [Rx] busPIRone [Buspar] 30 mg PO BID 30 Days #60 tablet 05/18/20 [Rx] haloperidoL [Haldol] 2 mg PO Q6H PRN 14 Days #14 tab 05/18/20 [Rx] Past Medical History Cardiovascular History: Reports: Blood Clots/VTE/DVT, Hypertension Respiratory History: Reports: Asthma, Bronchitis, Recurrent, COPD, PE, Sleep Apnea Other Respiratory History: Does not use CPAP/bipap. 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: Endometrial Ablation, Endometriosis, Other PLANT UTILITIES ENGINEER History: [id number] Musculoskeletal History: Reports: Arthritis, Back Pain, Chronic, Fracture, Fibromyalgia, Neck Pain, Chronic, Osteoarthritis, Other (See Below) Other Musculoskeletal History: Hx bilat wrist fx, fx arm, DJD, R ankle fx Neurological History: Reports: Migraines Psychiatric History: Reports: Anxiety, Bipolar, Depression, PTSD, Schizophrenia, Suicidal Ideation, Other (See Below) Other Psychiatric History: borderline personality disorder, hx cutting Endocrine/Metabolic History: Reports: Obesity/BMI 30+ Hematologic History: Reports: Blood Transfusion(s) - Infectious Disease History Infectious Disease History: Reports: Chicken Pox, Measles, Mumps, Shingles - Past Surgical History HEENT Surgical History: Reports: Oral Surgery GI Surgical History: Reports: Bariatric Procedure, Cholecystectomy, Colonoscopy, EGD Other GI Surgeries/Procedures: gastric sleeve 2013 Female Surgical History: Reports: Section Other Female Surgeries/Procedures: CS x 1 Musculoskeletal Surgical History: Reports: Knee Replacement, ORIF Other Musculoskeletal Surgeries/Procedures:: bilat partial knee replacements, R ankle surgery Social & Family History - Family History Family Medical History: Noncontributory - Tobacco Use Tobacco Use Within Last Twelve Months: No - Caffeine Use Caffeine Use: Reports: Coffee, Soda ED ROS GENERAL - Review of Systems Review Of Systems: Comprehensive ROS is negative, except as noted in HPI. Constitutional: Reports: Fever Respiratory: Reports: Shortness of Breath, Cough Cardiovascular: Reports: Chest Pain GI/Abdominal: Reports: Abdominal Pain (generalized), Diarrhea, Vomiting ED EXAM, GENERAL - Physical Exam Exam: See Below Exam Limited By: No Limitations General Appearance: Alert, WD/WN, No Apparent Distress Eye Exam: Bilateral Eye: EOMI, PERRL Nose: Normal Inspection Throat/Mouth: No Airway Compromise Head: Atraumatic, Normocephalic Neck: Supple Respiratory/Chest: No Respiratory Distress, Lungs Clear, Normal Breath Sounds Cardiovascular: Regular Rate, Rhythm, No Murmur GI/Abdominal: Soft, No Distention, Tender (mild generalized) Back Exam: Full Range of Motion Extremities: Normal Range of Motion Neurological: Alert, Normal Cognition Psychiatric: Normal Affect, Normal Mood Skin Exam: Warm, Dry, Intact #1 Interpretation EKG Date: 05/30/20 Time: 19:27 Rhythm: NSR Rate (Beats/Min): 94 [place]: LAD-Left [place] Deviation P-Wave: Present QRS: Normal ST-T: Normal QT: Normal Comparison: NA - No Prior EKG Course - Vital Signs Last Recorded V/S: Last Vital Signs Temp 38.4 C H 05/30/20 19:19 Pulse 95 05/30/20 19:19 Resp 20 05/30/20 19:19 BP 100/72 05/30/20 19:19 Pulse Ox 96 05/30/20 19:19 - Orders/Labs/Meds Orders: Active Orders 24 hr Category Date Time Status CXR [Chest 1V Frontal] [CR] Stat Exams 05/30/20 19:41 Taken CBC WITH AUTO DIFF [HEME] Stat Lab 05/30/20 20:40 Results CULTURE BLOOD [BC] Urgent Lab 05/30/20 20:40 Results Sodium Chloride 0.9% [Saline Flush] Med 05/30/20 19:50 Active 10 ml FLUSH ASDIRECTED PRN Blood Culture x2 Reflex Set [OM.PC] Urgent Oth 05/30/20 19:49 Ordered Isolation [COMM] Routine Oth 05/30/20 19:40 Ordered Saline Lock Insert [OM.PC] Routine Oth 05/30/20 19:50 Ordered Medication Orders Sodium Chloride (Saline Flush) 10 ml FLUSH ASDIRECTED PRN PRN Reason: Keep Vein Open Last Admin: 05/30/20 20:04 Dose: 10 ml Documented by: [email or web address] Labs: Laboratory Tests 05/30/20 05/30/20 05/30/20 Range/Units 19:40 20:40 20:40 WBC 4.5 (4.5-12.0) X10-3/uL RBC 4.46 (3.23-5.20) x10(6)uL Hgb 13.7 (11.5-15.5) g/dL Hct 39.5 (30.0-51.3) % MCV 88.7 (80-96) fL MCH 30.8 (27.7-33.6) pg MCHC 34.7 (32.2-35.4) g/dL RDW 13.0 (11.5-15.5) % Plt Count 143 (125-369) X10(3)uL MPV 8.3 (7.4-10.4) fL Add Manual Diff Yes POC VBG pH (7.32-7.43) pH Units POC VBG pCO2 (41-51) mmHg POC VBG HCO3 (21-29) mmol/L VBG Base Excess (-2-3) mmol/L O2 Delivery Device Sodium 137 (135-145) mmol/L Potassium 4.2 (3.5-5.3) mmol/L Chloride 102 (100-110) mmol/L Carbon Dioxide 26 (21-32) mmol/L BUN 8 (7-18) mg/dL Creatinine 0.9 (0.55-1.02) mg/dL Est Cr Clr Drug Dosing 77.50 mL/min Estimated GFR (MDRD) > 60 (>60) BUN/Creatinine Ratio 8.9 L (9-20) Glucose 98 (80-116) mg/dL Lactic Acid (0.4-2.0) mmol/L Calcium 8.5 L (8.6-10.2) mg/dL Total Bilirubin 0.4 (0.1-1.3) mg/dL AST 27 H D (5-25) IU/L ALT 17 D (12-36) U/L Alkaline Phosphatase 86 (56-112) IU/L Troponin I (4.0-60.3) pg/mL Total Protein 6.4 (6.0-8.0) g/dL Albumin 3.1 L (3.5-5.2) g/dL Globulin 3.3 g/dL Albumin/Globulin Ratio 0.9 SARS-CoV-2 RNA (GISELLA) Positive H (NEGATIVE) 05/30/20 05/30/20 05/30/20 Range/Units 20:40 20:40 20:40 WBC (4.5-12.0) X10-3/uL RBC (3.23-5.20) x10(6)uL Hgb (11.5-15.5) g/dL Hct (30.0-51.3) % MCV (80-96) fL MCH (27.7-33.6) pg MCHC (32.2-35.4) g/dL RDW (11.5-15.5) % Plt Count (125-369) X10(3)uL MPV (7.4-10.4) fL Add Manual Diff POC VBG pH 7.41 (7.32-7.43) pH Units POC VBG pCO2 38 L (41-51) mmHg POC VBG HCO3 24 (21-29) mmol/L VBG Base Excess -1 (-2-3) mmol/L O2 Delivery Device Room air Sodium (135-145) mmol/L Potassium (3.5-5.3) mmol/L Chloride (100-110) mmol/L Carbon Dioxide (21-32) mmol/L BUN (7-18) mg/dL Creatinine (0.55-1.02) mg/dL Est Cr Clr Drug Dosing mL/min Estimated GFR (MDRD) (>60) BUN/Creatinine Ratio (9-20) Glucose (80-116) mg/dL Lactic Acid 1.0 (0.4-2.0) mmol/L Calcium (8.6-10.2) mg/dL Total Bilirubin (0.1-1.3) mg/dL AST (5-25) IU/L ALT (12-36) U/L Alkaline Phosphatase (56-112) IU/L Troponin I 4.7 (4.0-60.3) pg/mL Total Protein (6.0-8.0) g/dL Albumin (3.5-5.2) g/dL Globulin g/dL Albumin/Globulin Ratio SARS-CoV-2 RNA (GISELLA) (NEGATIVE) Microbiology 05/30/20 19:40 Influenza Type A Antigen Screen - Final Nasopharyngeal Swab NEGATIVE INFLUENZA A VIRUS AG REFERENCE RANGE: NEGATIVE Influenza Type B Antigen Screen - Final NEGATIVE INFLUENZA B VIRUS AG REFERENCE RANGE: NEGATIVE 05/30/20 20:40 Anaerobic Blood Culture - Final Blood - Venous Meds: Medications Generic Name Dose Route Start Last Admin Trade Name Freq PRN Reason Stop Dose Admin Sodium Chloride 10 ml 05/30/20 19:50 05/30/20 20:04 Saline Flush FLUSH 10 ml ASDIRECTED PRN Administration Keep Vein Open Discontinued Medications Generic Name Dose Route Start Last Admin Trade Name Nicolasa PRN Reason Stop Dose Admin Acetaminophen 1,000 mg 05/30/20 20:34 05/30/20 20:53 Tylenol PO 05/30/20 20:35 Not Given NOW ONE Acetaminophen 1,000 mg 05/30/20 20:45 05/30/20 20:46 Tylenol Extra Strength PO 05/30/20 20:46 1,000 mg ONETIME ONE Administration Acetaminophen Confirm 05/30/20 20:45 05/30/20 20:53 Tylenol Extra Strength Administered 05/30/20 20:46 Not Given Dose 1,000 mg .ROUTE .STK-MED ONE Diphenhydramine HCl 25 mg 05/30/20 19:51 05/30/20 20:03 Benadryl IVPUSH 05/30/20 19:52 25 mg ONETIME ONE Administration Sodium Chloride 500 mls @ 500 mls/hr 05/30/20 19:51 05/30/20 20:03 Normal Saline IV 05/30/20 20:50 500 mls/hr .BOLUS ONE Administration Prochlorperazine Edisylate 10 mg 05/30/20 19:51 05/30/20 20:01 Compazine IVPUSH 05/30/20 19:52 10 mg ONETIME ONE Administration - Radiology Interpretation Free Text/Narrative:: CXR: No acute process. (ED provider interpretation) - Re-Assessments/Exams Free Text/Narrative Re-Assessment/Exam: 05/30/20 21:11 Headache persists, but nausea resolved. Vitals stable. Patient in no acute distress, resting comfortably. Will discharge home with a Zofran starter pack. Departure - Departure Time of Disposition: 21:14 Disposition: Home, Self-Care 01 Condition: Good Clinical Impression: Gastroenteritis due to COVID-19 virus Cephalgia Qualifiers: Headache type: unspecified Headache chronicity pattern: unspecified pattern Intractability: not intractable Qualified Code(s): R51.9 - Headache, unspecified Chest pain Qualifiers: Chest pain type: unspecified Qualified Code(s): R07.9 - Chest pain, unspecified - Discharge Information *PRESCRIPTION DRUG MONITORING PROGRAM REVIEWED*: No *COPY OF PRESCRIPTION DRUG MONITORING REPORT IN PATIENT [place]: Not Applicable Instructions: Nonspecific Chest Pain, Adult, Migraine Headache, [id number], Viral Gastroenteritis, Adult, COVID-19, Prevent the Spread of COVID-19 if You Are Sick - [facility] Referrals: Karo Arguello NP [Primary Care Provider] - Forms: ED Department Discharge Additional Instructions: Take the Zofran as directed. Drink plenty of fluids. Take Tylenol as needed. Follow up as needed. Sepsis Event Note (ED) - Focused Exam Vital Signs: Vital Signs Temp Pulse Resp BP Pulse Ox 05/30/20 19:19 38.4 C H 95 20 100/72 96 - My Orders Last 24 Hours: My Active Orders 05/30/20 19:40 Isolation [COMM] Routine 05/30/20 19:41 CXR [Chest 1V Frontal] [CR] Stat 05/30/20 19:49 Blood Culture x2 Reflex Set [OM.PC] Urgent 05/30/20 19:50 Sodium Chloride 0.9% [Saline Flush] 10 ml FLUSH ASDIRECTED PRN Saline Lock Insert [OM.PC] Routine 05/30/20 20:40 CBC WITH AUTO DIFF [HEME] Stat CULTURE BLOOD [BC] Urgent - Assessment/Plan Last 24 Hours: My Active Orders 05/30/20 19:40 Isolation [COMM] Routine 05/30/20 19:41 CXR [Chest 1V Frontal] [CR] Stat 05/30/20 19:49 Blood Culture x2 Reflex Set [OM.PC] Urgent 05/30/20 19:50 Sodium Chloride 0.9% [Saline Flush] 10 ml FLUSH ASDIRECTED PRN Saline Lock Insert [OM.PC] Routine 05/30/20 20:40 CBC WITH AUTO DIFF [HEME] Stat CULTURE BLOOD [BC] Urgent
[2020-05-30] MEDS ORDERED: Acetaminophen 325 MG Tab PO ONE (20:34)
[2020-05-30] MEDS ORDERED: Acetaminophen 500 MG Tab ONE (20:45)
[2020-05-30] MEDS ORDERED: Acetaminophen 500 MG Tab PO ONE (20:45)
[2020-05-30 20:48] LABS: HCO3 VENOUS,POC 24 mmol/L (21-29); PCO2 VENOUS,POC 38 mmHg (41-51); PH VENOUS,POC 7.41 pH Units (7.32-7.43)
[2020-05-30 20:49] LABS: BASE EXCESS VENOUS,POC -1 mmol/L (-2-3)
--- NOTE | 2020-06-02 14:11 | CR ---
INDICATION: Cough, shortness of breath. CHEST ONE VIEW: An AP upright portable view of the chest was obtained 05/30/[address] of the chest dated 12/21/19. Many snaps are noted overlying the chest with overlying EKG leads also seen. The heart remains within normal limits in size. The aorta is slightly tortuous. Evidence of exogenous obesity is noted. A definite active infiltrate or effusion was not identified. Pulmonary markings appear similar to the previous CT examination. IMPRESSION: 1. No definite acute process - full inspiration PA and lateral views of the chest, when clinically possible, may be helpful for further evaluation. 2. Exogenous obesity. 3. ASD aorta. MTDD
== END 2020-05-30 21:40 | disposition home or self-care (01) ==
LOC: FB.ED 19:19
DX: U07.1 COVID-19 (principal); A08.39 Other viral enteritis; E66.9 Obesity, unspecified; F41.9 Anxiety disorder, unspecified; F31.9 Bipolar disorder, unspecified; F20.9 Schizophrenia, unspecified; I10 Essential (primary) hypertension; J44.9 Chronic obstructive pulmonary disease, unspecified; K21.9 Gastro-esophageal reflux disease without esophagitis; Z88.5 Allergy status to narcotic agent; Z88.8 Allergy status to other drugs, medicaments and biological substances; Z88.0 Allergy status to penicillin; Z90.49 Acquired absence of other specified parts of digestive tract; Z79.899 Other long term (current) drug therapy; Z68.42 Body mass index [BMI] 45.0-49.9, adult
CPT/HCPCS: 36415; 71045; 80053; 83605; 84484; 85025; 87040; 87804; 87804-59; 93005; 96374; 96375; 99285-25; A9270-GY; J0780; J1200; J7040; U0002

== ENCOUNTER 2020-06-01 17:05 | Emergency (ER) | payer MEDICARE, MEDICAID ==
--- NOTE | 2020-06-01 18:11 | EDM.PDOC ---
ED HPI GENERAL MEDICAL PROBLEM - General Chief Complaint: Respiratory Problem Stated Complaint: LOW SAT Time Seen by Provider: 06/01/20 17:50 Source of Information: Reports: Patient History Limitations: Reports: No Limitations - History of Present Illness INITIAL COMMENTS - FREE TEXT/NARRATIVE: Patient presented to the ED because of dyspnea,weakness and think that she cant take care of herself. She was diagnosed with Covid 2 days ago and this morning she checked her oxygen sat and it was 88% on RA. - Related Data Allergies Allergy/AdvReac Type Severity Reaction Status Date / Time aspirin Allergy Airway Verified 12/21/19 22:10 Tightness codeine Allergy Airway Verified 12/21/19 22:10 Tightness methadone Allergy Hallucinati Verified 12/21/19 22:10 ons morphine Allergy Airway Verified 12/21/19 22:10 Tightness NSAIDS (Non-Steroidal Allergy Airway Verified 12/21/19 22:10 Anti-Inflamma Tightness Penicillins Allergy Airway Verified 12/21/19 22:10 Tightness theophylline Allergy Nausea Verified 12/21/19 22:10 Home Meds: Home Meds Furosemide [Lasix] 40 mg PO BID 12/21/19 [History] Rivaroxaban [Xarelto] 20 mg BEDTIME 12/21/19 [History] Varenicline [Chantix] 1 mg PO BIDPC 12/21/19 [History] atorvaSTATin [Lipitor] 20 mg PO BEDTIME 12/21/19 [History] buPROPion HCL [Wellbutrin Xl] 150 mg PO BEDTIME 12/21/19 [History] traZODone 200 mg PO BEDTIME 12/21/19 [History] ALPRAZolam [Alprazolam] 0.5 mg PO TID MDD ANXIETY 04/04/20 [History] ALPRAZolam [Alprazolam] 1 mg PO DAILY 04/04/20 [History] Albuterol Sulfate [Albuterol Sulfate Hfa] 1 puff PO TID PRN 04/04/20 [History] Albuterol/Ipratropium [DuoNeb 3.0-0.5 MG/3 ML] 3 ml NEB QID PRN 04/04/20 [History] Baclofen 10 mg PO BID PRN 04/04/20 [History] Biotin 5,000 mcg PO BID 04/04/20 [History] Budesonide/Formoterol [Symbicort 80-4.5 MCG] 2 puff PO BID 04/04/20 [History] Calcium Citrate/Vitamin D3 [Calcium Cit 315-Vit D3 250 Tab] 1 tab PO BIDMEALS 04/04/20 [History] Cholecalciferol (Vitamin D3) [Vitamin D3] 1,000 unit PO DAILY 04/04/20 [History] Diclofenac Sodium [Voltaren 1% Gel] 2 g TOP BID 04/04/20 [History] Diltiazem HCl [Diltiazem 24Hr ER] 120 mg PO BEDTIME 04/04/20 [History] Docusate Sodium/Sennosides [Senna Plus] 1 tab PO BID PRN 04/04/20 [History] Famotidine 20 mg PO BID 04/04/20 [History] Gabapentin [Neurontin] 600 mg PO TID 04/04/20 [History] Linaclotide [Linzess] 145 mcg PO DAILY 04/04/20 [History] Loratadine 10 mg PO DAILY 04/04/20 [History] Magnesium Amino Acid Chelate [Magnesium] 100 mg PO DAILY 04/04/20 [History] Multivitamin 1 tab PO DAILY 04/04/20 [History] OXcarbazepine [Oxcarbazepine] 600 mg PO BEDTIME 04/04/20 [History] Ondansetron [Zofran ODT] 4 mg PO Q6H PRN 04/04/20 [History] Potassium Chloride [Klor-Con 10] 10 meq PO BID 04/04/20 [History] QUEtiapine Fumarate [Quetiapine Fumarate ER] 200 mg PO BEDTIME 04/04/20 [History] busPIRone HCl [busPIRone] 30 mg PO BID 04/04/20 [History] Acetaminophen [Tylenol] 650 mg PO Q4H PRN tablet 05/18/20 [Rx] FLUoxetine HCl [Prozac] 40 mg PO DAILY 20 Days #60 cap 05/18/20 [Rx] Lidocaine 5% [Lidoderm 5%] 1,400 mg TOP DAILY 30 Days #60 patch 05/18/20 [Rx] Nystatin [Nystop] 0 gm TOP BID 30 Days #1 bottle 05/18/20 [Rx] busPIRone [Buspar] 30 mg PO BID 30 Days #60 tablet 05/18/20 [Rx] haloperidoL [Haldol] 2 mg PO Q6H PRN 14 Days #14 tab 05/18/20 [Rx] Past Medical History Cardiovascular History: Reports: Blood Clots/VTE/DVT, Hypertension Respiratory History: Reports: Asthma, Bronchitis, Recurrent, COPD, PE, Sleep Apnea Other Respiratory History: Does not use CPAP/bipap. 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 SUPERVISOR History: [id number] Musculoskeletal History: Reports: Arthritis, Back Pain, Chronic, Fracture, Fibromyalgia, Neck Pain, Chronic, Osteoarthritis, Other (See Below) Other Musculoskeletal History: Hx bilat wrist fx, fx arm, DJD, R ankle fx Neurological History: Reports: Migraines Psychiatric History: Reports: Anxiety, Bipolar, Depression, PTSD, Schizophrenia, Suicidal Ideation, Other (See Below) Other Psychiatric History: borderline personality disorder, hx cutting Endocrine/Metabolic History: Reports: Obesity/BMI 30+ Hematologic History: Reports: Blood Transfusion(s) - Infectious Disease History Infectious Disease History: Reports: Chicken Pox, Measles, Mumps, Shingles - Past Surgical History HEENT Surgical History: Reports: Oral Surgery GI Surgical History: Reports: Bariatric Procedure, Cholecystectomy, Colonoscopy, EGD Other GI Surgeries/Procedures: gastric sleeve 2013 Female Surgical History: Reports: Section Other Female Surgeries/Procedures: CS x 1 Musculoskeletal Surgical History: Reports: Knee Replacement, ORIF Other Musculoskeletal Surgeries/Procedures:: bilat partial knee replacements, R ankle surgery Social & Family History - Family History Family Medical History: Noncontributory - Caffeine Use Caffeine Use: Reports: Coffee, Soda ED ROS GENERAL - Review of Systems Review Of Systems: See Below Constitutional: Reports: No Symptoms HEENT: Reports: No Symptoms Respiratory: Reports: Shortness of Breath, Cough Cardiovascular: Reports: No Symptoms Endocrine: Reports: No Symptoms GI/Abdominal: Reports: No Symptoms : Reports: No Symptoms Musculoskeletal: Reports: No Symptoms Skin: Reports: No Symptoms Neurological: Reports: No Symptoms Psychiatric: Reports: No Symptoms Hematologic/Lymphatic: Reports: No Symptoms ED EXAM, GENERAL - Physical Exam Exam: See Below Exam Limited By: No Limitations General Appearance: Alert, No Apparent Distress Eye Exam: Bilateral Eye: PERRL Nose: Normal Inspection, Normal Mucosa Throat/Mouth: Normal Inspection, Normal Lips Head: Atraumatic, Normocephalic Neck: Normal Inspection, Supple, Non-Tender Respiratory/Chest: No Respiratory Distress, Lungs Clear, Normal Breath Sounds Cardiovascular: Normal Peripheral Pulses, Regular Rate, Rhythm, No Edema, No Gallop GI/Abdominal: Normal Bowel Sounds, Soft, Non-Tender, No Organomegaly Back Exam: Normal Inspection, Full Range of Motion Extremities: Normal Inspection, Normal Range of Motion, Non-Tender Course - Vital Signs Text/Narrative:: Patient will be called tomorrow for recovery at the [facility] of our [place] She was also advised to return to the ED anytime if her condition get worse like increasing dyspnea. Refused to be transferred to [facility] for now Departure - Departure Time of Disposition: 18:15 Disposition: Home, Self-Care 01 Condition: Good Clinical Impression: COVID-19 virus infection - Discharge Information Instructions: COVID-19 Frequently Asked Questions Referrals: Karo Arguello NP [Primary Care Provider] - Forms: ED Department Discharge Additional Instructions: Please read discharge instructions on COVID If you feel like you can't take care of yourself or short of breath then go directly to [facility]
== END 2020-06-01 18:50 | disposition home or self-care (01) ==
LOC: FB.ED 17:05
DX: U07.1 COVID-19 (principal); J44.9 Chronic obstructive pulmonary disease, unspecified; K21.9 Gastro-esophageal reflux disease without esophagitis; F31.9 Bipolar disorder, unspecified; Z88.6 Allergy status to analgesic agent; F41.9 Anxiety disorder, unspecified; E66.9 Obesity, unspecified; F20.9 Schizophrenia, unspecified; Z88.5 Allergy status to narcotic agent; Z88.8 Allergy status to other drugs, medicaments and biological substances; Z88.0 Allergy status to penicillin; Z79.01 Long term (current) use of anticoagulants; Z79.899 Other long term (current) drug therapy; Z86.718 Personal history of other venous thrombosis and embolism
CPT/HCPCS: 99284

== ENCOUNTER 2020-06-02 11:15 | Emergency (ER) | payer MEDICARE, MEDICAID, OTHER ==
[2020-06-02] MEDS ORDERED: Sodium Chloride 0.9% 10 ML Syringe FLUSH PRN (11:29)
--- NOTE | 2020-06-02 11:51 | EDM.PDOC ---
ED HPI GENERAL MEDICAL PROBLEM - General Stated Complaint: cough/dyspnea Time Seen by Provider: 06/02/20 11:15 Source of Information: Reports: Patient History Limitations: Reports: No Limitations - History of Present Illness INITIAL COMMENTS - FREE TEXT/NARRATIVE: Patient presented to the ED because of progressive weakness, dyspnea. She was diagnosed with Covid 3 days ago and was discharged to home. For the past 3 days she has been feeling more fatigued and weak. She fell down to her knees at 0230 today because of weakness. She also c/o increasing dyspnea even with mild exertion. Her oxygen saturation at home was 88% and in the ED 92 % both on RA. She also c/o fever, chills, and diarrhea, denies having abdominal pain. Bilateral knees, L>R Pain Score (Numeric/FACES): 7 - Related Data Allergies Allergy/AdvReac Type Severity Reaction Status Date / Time aspirin Allergy Airway Verified 06/01/20 19:47 Tightness codeine Allergy Airway Verified 06/01/20 19:47 Tightness methadone Allergy Hallucinati Verified 06/01/20 19:47 ons morphine Allergy Airway Verified 06/01/20 19:47 Tightness NSAIDS (Non-Steroidal Allergy Airway Verified 06/01/20 19:47 Anti-Inflamma Tightness Penicillins Allergy Airway Verified 06/01/20 19:47 Tightness theophylline Allergy Nausea Verified 06/01/20 19:47 Home Meds: Home Meds Furosemide [Lasix] 40 mg PO BID 12/21/19 [History] Rivaroxaban [Xarelto] 20 mg BEDTIME 12/21/19 [History] Varenicline [Chantix] 1 mg PO BIDPC 12/21/19 [History] atorvaSTATin [Lipitor] 20 mg PO BEDTIME 12/21/19 [History] buPROPion HCL [Wellbutrin Xl] 150 mg PO BEDTIME 12/21/19 [History] traZODone 200 mg PO BEDTIME 12/21/19 [History] ALPRAZolam [Alprazolam] 0.5 mg PO TID MDD ANXIETY 04/04/20 [History] ALPRAZolam [Alprazolam] 1 mg PO DAILY 04/04/20 [History] Albuterol Sulfate [Albuterol Sulfate Hfa] 1 puff PO TID PRN 04/04/20 [History] Albuterol/Ipratropium [DuoNeb 3.0-0.5 MG/3 ML] 3 ml NEB QID PRN 04/04/20 [History] Baclofen 10 mg PO BID PRN 04/04/20 [History] Biotin 5,000 mcg PO BID 04/04/20 [History] Budesonide/Formoterol [Symbicort 80-4.5 MCG] 2 puff PO BID 04/04/20 [History] Calcium Citrate/Vitamin D3 [Calcium Cit 315-Vit D3 250 Tab] 1 tab PO BIDMEALS 04/04/20 [History] Cholecalciferol (Vitamin D3) [Vitamin D3] 1,000 unit PO DAILY 04/04/20 [History] Diclofenac Sodium [Voltaren 1% Gel] 2 g TOP BID 04/04/20 [History] Diltiazem HCl [Diltiazem 24Hr ER] 120 mg PO BEDTIME 04/04/20 [History] Docusate Sodium/Sennosides [Senna Plus] 1 tab PO BID PRN 04/04/20 [History] Famotidine 20 mg PO BID 04/04/20 [History] Gabapentin [Neurontin] 600 mg PO TID 04/04/20 [History] Linaclotide [Linzess] 145 mcg PO DAILY 04/04/20 [History] Loratadine 10 mg PO DAILY 04/04/20 [History] Magnesium Amino Acid Chelate [Magnesium] 100 mg PO DAILY 04/04/20 [History] Multivitamin 1 tab PO DAILY 04/04/20 [History] OXcarbazepine [Oxcarbazepine] 600 mg PO BEDTIME 04/04/20 [History] Ondansetron [Zofran ODT] 4 mg PO Q6H PRN 04/04/20 [History] Potassium Chloride [Klor-Con 10] 10 meq PO BID 04/04/20 [History] QUEtiapine Fumarate [Quetiapine Fumarate ER] 200 mg PO BEDTIME 04/04/20 [History] busPIRone HCl [busPIRone] 30 mg PO BID 04/04/20 [History] Acetaminophen [Tylenol] 650 mg PO Q4H PRN tablet 05/18/20 [Rx] FLUoxetine HCl [Prozac] 40 mg PO DAILY 20 Days #60 cap 05/18/20 [Rx] Lidocaine 5% [Lidoderm 5%] 1,400 mg TOP DAILY 30 Days #60 patch 05/18/20 [Rx] Nystatin [Nystop] 0 gm TOP BID 30 Days #1 bottle 05/18/20 [Rx] busPIRone [Buspar] 30 mg PO BID 30 Days #60 tablet 05/18/20 [Rx] haloperidoL [Haldol] 2 mg PO Q6H PRN 14 Days #14 tab 05/18/20 [Rx] Past Medical History Cardiovascular History: Reports: Blood Clots/VTE/DVT, Hypertension Respiratory History: Reports: Asthma, Bronchitis, Recurrent, COPD, PE, Sleep Apnea Other Respiratory History: Does not use CPAP/bipap. no o2 use as stated Gastrointestinal History: Reports: Cholelithiasis, Chronic Constipation, GERD PLASTIC PRESS MOLDER History: Reports: Endometrial Ablation, Endometriosis, Other PLASTIC PRESS MOLDER History: [id number] Musculoskeletal History: Reports: Arthritis, Back Pain, Chronic, Fracture, Fibromyalgia, Neck Pain, Chronic, Osteoarthritis, Other (See Below) Other Musculoskeletal History: Hx bilat wrist fx, fx arm, DJD, R ankle fx Neurological History: Reports: Migraines Psychiatric History: Reports: Anxiety, Bipolar, Depression, PTSD, Schizophrenia, Suicidal Ideation, Other (See Below) Other Psychiatric History: borderline personality disorder, hx cutting Endocrine/Metabolic History: Reports: Obesity/BMI 30+ Hematologic History: Reports: Blood Transfusion(s) - Infectious Disease History Infectious Disease History: Reports: Chicken Pox, Measles, Mumps, Shingles - Past Surgical History HEENT Surgical History: Reports: Oral Surgery GI Surgical History: Reports: Bariatric Procedure, Cholecystectomy, Colonoscopy, EGD Other GI Surgeries/Procedures: gastric sleeve 2013 Female Surgical History: Reports: Section Other Female Surgeries/Procedures: CS x 1 Musculoskeletal Surgical History: Reports: Knee Replacement, ORIF Other Musculoskeletal Surgeries/Procedures:: bilat partial knee replacements, R ankle surgery Social & Family History - Family History Family Medical History: Noncontributory - Caffeine Use Caffeine Use: Reports: Coffee, Soda ED ROS GENERAL - Review of Systems Review Of Systems: See Below Constitutional: Reports: Fever, Chills, Malaise, Weakness HEENT: Reports: No Symptoms Respiratory: Reports: Shortness of Breath, Cough Cardiovascular: Reports: No Symptoms Endocrine: Reports: No Symptoms GI/Abdominal: Reports: Nausea ED EXAM, GENERAL - Physical Exam Exam: See Below Exam Limited By: No Limitations General Appearance: Alert, No Apparent Distress Ears: Normal External Exam, Normal Canal Nose: Normal Inspection, Normal Mucosa Throat/Mouth: Normal Inspection, Normal Lips Head: Atraumatic, Normocephalic Neck: Normal Inspection, Supple, Non-Tender Respiratory/Chest: No Respiratory Distress, Lungs Clear, Normal Breath Sounds Cardiovascular: Normal Peripheral Pulses, Regular Rate, Rhythm, No Edema, No Gallop GI/Abdominal: Normal Bowel Sounds, Soft, Non-Tender, No Organomegaly, No Distention, No Abnormal Bruit Extremities: Normal Inspection, Normal Range of Motion, Non-Tender Course - Vital Signs Text/Narrative:: Labs/CXR result was discussed with patient Matt doesn't want to take her because she is stable enough to go home. Also [facility] won't admit her for same reason. Patient was very upset and said that "are they just waiting for me to before doing anything"? Last Recorded V/S: Last Vital Signs Temp 37.4 C 06/02/20 11:15 Pulse 82 06/02/20 11:15 Resp 20 06/02/20 11:15 BP 143/87 H 06/02/20 11:15 Pulse Ox 94 L 06/02/20 11:15 - Orders/Labs/Meds Orders: Active Orders 24 hr Category Date Time Status EKG Documentation Completion [RC] ASDIRECTED Care 06/02/20 11:34 Active Chest 1V Frontal [CR] Stat Exams 06/02/20 11:28 Taken Knee 1V or 2V Bi [CR] Stat Exams 06/02/20 12:00 Taken Sodium Chloride 0.9% [Saline Flush] Med 06/02/20 11:29 Active 10 ml FLUSH ASDIRECTED PRN Saline Lock Insert [OM.PC] Routine Oth 06/02/20 11:29 Ordered EKG 12 Lead [EK] Routine Ther 06/02/20 11:34 Ordered Medication Orders Sodium Chloride (Saline Flush) 10 ml FLUSH ASDIRECTED PRN PRN Reason: Keep Vein Open Labs: Laboratory Tests 06/02/20 06/02/20 06/02/20 Range/Units 12:00 12:00 12:00 WBC 3.2 L (4.5-12.0) X10-3/uL RBC 4.84 (3.23-5.20) x10(6)uL Hgb 14.7 (11.5-15.5) g/dL Hct 43.0 (30.0-51.3) % MCV 88.8 (80-96) fL MCH 30.5 (27.7-33.6) pg MCHC 34.3 (32.2-35.4) g/dL RDW 12.6 (11.5-15.5) % Plt Count 112 L (125-369) X10(3)uL MPV 8.2 (7.4-10.4) fL Neut % (Auto) 64.1 (46-82) % Lymph % (Auto) 26.6 (13-37) % [place] % (Auto) 8.7 (4-12) % Eos % (Auto) 0 L (1.0-5.0) % Baso % (Auto) 0 (0-2) % Neut # (Auto) 2.0 (1.6-8.3) # Lymph # (Auto) 0.9 (0.6-5.0) # [place] # (Auto) 0.3 (0.0-1.3) # Eos # (Auto) 0.0 (0.0-0.8) # Baso # (Auto) 0.0 (0.0-0.2) # POC VBG pH (7.32-7.43) pH Units POC VBG pCO2 (41-51) mmHg POC VBG HCO3 (21-29) mmol/L VBG Base Excess (-2-3) mmol/L O2 Delivery Device Sodium 138 (135-145) mmol/L Potassium 3.7 (3.5-5.3) mmol/L Chloride 100 (100-110) mmol/L Carbon Dioxide 28 (21-32) mmol/L BUN 8 (7-18) mg/dL Creatinine 0.8 (0.55-1.02) mg/dL Est Cr Clr Drug Dosing 84.91 mL/min Estimated GFR (MDRD) > 60 (>60) BUN/Creatinine Ratio 10.0 (9-20) Glucose 94 (80-116) mg/dL Lactic Acid 0.7 (0.4-2.0) mmol/L Calcium 8.0 L (8.6-10.2) mg/dL Total Bilirubin 0.4 (0.1-1.3) mg/dL AST 32 H D (5-25) IU/L ALT 28 D (12-36) U/L Alkaline Phosphatase 79 (56-112) IU/L Troponin I (4.0-60.3) pg/mL C-Reactive Protein (0.5-0.9) mg/dL NT-Pro-B Natriuret Pep (<=125) pg/mL Total Protein 6.8 (6.0-8.0) g/dL Albumin 3.2 L (3.5-5.2) g/dL Globulin 3.6 g/dL Albumin/Globulin Ratio 0.9 06/02/20 06/02/20 Range/Units 12:00 12:00 WBC (4.5-12.0) X10-3/uL RBC (3.23-5.20) x10(6)uL Hgb (11.5-15.5) g/dL Hct (30.0-51.3) % MCV (80-96) fL MCH (27.7-33.6) pg MCHC (32.2-35.4) g/dL RDW (11.5-15.5) % Plt Count (125-369) X10(3)uL MPV (7.4-10.4) fL Neut % (Auto) (46-82) % Lymph % (Auto) (13-37) % [place] % (Auto) (4-12) % Eos % (Auto) (1.0-5.0) % Baso % (Auto) (0-2) % Neut # (Auto) (1.6-8.3) # Lymph # (Auto) (0.6-5.0) # [place] # (Auto) (0.0-1.3) # Eos # (Auto) (0.0-0.8) # Baso # (Auto) (0.0-0.2) # POC VBG pH 7.40 (7.32-7.43) pH Units POC VBG pCO2 39 L (41-51) mmHg POC VBG HCO3 24 (21-29) mmol/L VBG Base Excess 0 (-2-3) mmol/L O2 Delivery Device Room air Sodium (135-145) mmol/L Potassium (3.5-5.3) mmol/L Chloride (100-110) mmol/L Carbon Dioxide (21-32) mmol/L BUN (7-18) mg/dL Creatinine (0.55-1.02) mg/dL Est Cr Clr Drug Dosing mL/min Estimated GFR (MDRD) (>60) BUN/Creatinine Ratio (9-20) Glucose (80-116) mg/dL Lactic Acid (0.4-2.0) mmol/L Calcium (8.6-10.2) mg/dL Total Bilirubin (0.1-1.3) mg/dL AST (5-25) IU/L ALT (12-36) U/L Alkaline Phosphatase (56-112) IU/L Troponin I 7.3 (4.0-60.3) pg/mL C-Reactive Protein 3.7 H* (0.5-0.9) mg/dL NT-Pro-B Natriuret Pep 47 (<=125) pg/mL Total Protein (6.0-8.0) g/dL Albumin (3.5-5.2) g/dL Globulin g/dL Albumin/Globulin Ratio Meds: Medications Generic Name Dose Route Start Last Admin Trade Name Freq PRN Reason Stop Dose Admin Sodium Chloride 10 ml 06/02/20 11:29 Saline Flush FLUSH ASDIRECTED PRN Keep Vein Open Departure - Departure Time of Disposition: 13:25 Disposition: Home, Self-Care 01 Condition: Good Clinical Impression: COVID-19 - Discharge Information Instructions: COVID-19 Frequently Asked Questions Referrals: PCP,None [Ordering Only Provider] - Additional Instructions: Please read COVID 19 frequently asked questions Take Vit C,D,Zinc 1 tablet daily Follow up as needed Sepsis Event Note (ED) - Focused Exam Vital Signs: Vital Signs Temp Pulse Resp BP Pulse Ox 06/02/20 11:15 37.4 C 82 20 143/87 H 94 L - My Orders Last 24 Hours: My Active Orders 06/02/20 11:28 Chest 1V Frontal [CR] Stat 06/02/20 11:29 Sodium Chloride 0.9% [Saline Flush] 10 ml FLUSH ASDIRECTED PRN Saline Lock Insert [OM.PC] Routine 06/02/20 11:34 EKG Documentation Completion [RC] ASDIRECTED EKG 12 Lead [EK] Routine 06/02/20 12:00 Knee 1V or 2V Bi [CR] Stat - Assessment/Plan Last 24 Hours: My Active Orders 06/02/20 11:28 Chest 1V Frontal [CR] Stat 06/02/20 11:29 Sodium Chloride 0.9% [Saline Flush] 10 ml FLUSH ASDIRECTED PRN Saline Lock Insert [OM.PC] Routine 06/02/20 11:34 EKG Documentation Completion [RC] ASDIRECTED EKG 12 Lead [EK] Routine 06/02/20 12:00 Knee 1V or 2V Bi [CR] Stat
[2020-06-02 12:25] LABS: HCO3 VENOUS,POC 24 mmol/L (21-29); PCO2 VENOUS,POC 39 mmHg (41-51)
[2020-06-02 12:26] LABS: BASE EXCESS VENOUS,POC 0 mmol/L (-2-3)
[2020-06-02] MEDS ORDERED: Haloperidol Lactate 5 MG/ML SDV IM ONE (13:53)
[2020-06-02] MEDS ORDERED: hydrOXYzine HCl 50 MG/ML SDV IM ONE (13:53)
[2020-06-02] MEDS ORDERED: diphenhydrAMINE 50 MG/ML SDV IM ONE (13:53)
--- NOTE | 2020-06-02 14:08 | CR ---
INDICATION: Dyspnea/COVID-positive. CHEST, ONE VIEW: An AP upright portable view of the chest 06/02/20 was compared with 05/30/20 and revealed the heart to appear grossly normal in size. Pulmonary markings are somewhat prominent as previously with question of a mild degree of pulmonary vascular congestion. This should be correlated clinically. No gross consolidating pneumonia or effusion was identified. IMPRESSION: No definite acute process, but difficult to exclude a mild degree of pulmonary vascular congestion. MTDD
--- NOTE | 2020-06-02 14:13 | CR ---
INDICATION: Fall. Pain. BILATERAL KNEES: Frontal and lateral views of both knees were obtained 06/02/20 and compared with 05/19/19. There are again noted bilateral medial hemiarthroplasties which remain in good position and alignment, without a definite complicating process identified. The lateral femorotibial joint spaces appear to be fairly well maintained bilaterally, although very minimally narrowed, as previously on the right. There are some degenerative changes at the patellofemoral joints of mild degree. Overall bone density appeared to be normal. Evidence of exogenous obesity is noted. IMPRESSION: 1. No acute process - no fracture or dislocation. 2. Satisfactory and stable appearance bilateral medial hemiarthroplasties of the knees. 3. Mild osteoarthritis patellofemoral with mild arthritic changes also noted at the lateral femorotibial joint spaces, but only very minimal loss of lateral femorotibial joint space on the right. This appears stable compared with the previous study. [facility]
== END 2020-06-02 14:30 | disposition home or self-care (01) ==
LOC: FB.ED 11:15
DX: U07.1 COVID-19 (principal); J44.9 Chronic obstructive pulmonary disease, unspecified; I10 Essential (primary) hypertension; K21.9 Gastro-esophageal reflux disease without esophagitis; F31.9 Bipolar disorder, unspecified; F41.9 Anxiety disorder, unspecified; F20.9 Schizophrenia, unspecified; E66.9 Obesity, unspecified; Z68.42 Body mass index [BMI] 45.0-49.9, adult; Z88.6 Allergy status to analgesic agent; Z88.5 Allergy status to narcotic agent; Z88.8 Allergy status to other drugs, medicaments and biological substances; Z88.0 Allergy status to penicillin; Z79.01 Long term (current) use of anticoagulants; Z79.899 Other long term (current) drug therapy; Z86.718 Personal history of other venous thrombosis and embolism; Z86.711 Personal history of pulmonary embolism
CPT/HCPCS: 36415; 71045; 73560-50; 80053; 83605; 83880; 84484; 85025; 86140; 96372; 99283; 99285-25; J1200; J1630; J3410

== ENCOUNTER 2020-06-06 17:27 | Emergency (ER) | payer MEDICARE, MEDICAID ==
[2020-06-06] MEDS ORDERED: Sodium Chloride 0.9% 10 ML Syringe FLUSH PRN (17:42)
[2020-06-06] MEDS ORDERED: Morphine 4 MG/ML VIAL IVPUSH ONE (17:59)
[2020-06-06] MEDS ORDERED: Dexamethasone 4 MG/ML SDV IVPUSH ONE (17:59)
[2020-06-06] MEDS ORDERED: Dexamethasone 4 MG/ML 5 ML MDV ONE (18:06)
[2020-06-06] MEDS ORDERED: Dexamethasone 4 MG/ML 5 ML MDV IVPUSH ONE (18:09)
[2020-06-06] MEDS ORDERED: Ondansetron 4 MG/2 ML SDV IVPUSH ONE (18:12)
[2020-06-06] MEDS ORDERED: Ondansetron 4 MG/2 ML SDV ONE (18:13)
[2020-06-06] MEDS ORDERED: LORazepam 2 MG/ML SDV IVPUSH ONE (18:25)
[2020-06-06] MEDS ORDERED: LORazepam 2 MG/ML SDV ONE (18:26)
[2020-06-06 18:32] LABS: BASE EXCESS VENOUS,POC 2 mmol/L (-2-3); HCO3 VENOUS,POC 27 mmol/L (21-29); PCO2 VENOUS,POC 43 mmHg (41-51)
--- NOTE | 2020-06-06 18:38 | CR ---
INDICATION: Dyspnea. CHEST: AP upright portable view of the chest 06/06/20 was compared with 06/02/20 and 05/30/20 and now reveals extensive patchy consolidation bilaterally involving all portions of the lung, appearance which can be compatible with a process such as COVID-19 pneumonia and should be correlated clinically. A degree of CHF and lung edema would also be a consideration. MTDD
--- NOTE | 2020-06-06 18:49 | EDM.PDOC ---
ED HPI GENERAL MEDICAL PROBLEM - General Stated Complaint: Dyspnea Time Seen by Provider: 06/06/20 18:00 Source of Information: Reports: Patient History Limitations: Reports: No Limitations - History of Present Illness INITIAL COMMENTS - FREE TEXT/NARRATIVE: Patient presented to the ED because of worsening dyspnea and cough. She was diagnosed with COVID-19 1 week ago and and has been progressively getting worse. She is feeling more weak, fatigued and short of breath. She is on home oxygen at 2 L and is hypoxemic with oxygen saturation of 47-53. - Related Data Allergies Allergy/AdvReac Type Severity Reaction Status Date / Time aspirin Allergy Airway Verified 06/01/20 19:47 Tightness codeine Allergy Airway Verified 06/01/20 19:47 Tightness methadone Allergy Hallucinati Verified 06/01/20 19:47 ons morphine Allergy Airway Verified 06/01/20 19:47 Tightness NSAIDS (Non-Steroidal Allergy Airway Verified 06/01/20 19:47 Anti-Inflamma Tightness Penicillins Allergy Airway Verified 06/01/20 19:47 Tightness theophylline Allergy Nausea Verified 06/01/20 19:47 Home Meds: Home Meds Furosemide [Lasix] 40 mg PO BID 12/21/19 [History] Rivaroxaban [Xarelto] 20 mg BEDTIME 12/21/19 [History] Varenicline [Chantix] 1 mg PO BIDPC 12/21/19 [History] atorvaSTATin [Lipitor] 20 mg PO BEDTIME 12/21/19 [History] buPROPion HCL [Wellbutrin Xl] 150 mg PO BEDTIME 12/21/19 [History] traZODone 200 mg PO BEDTIME 12/21/19 [History] ALPRAZolam [Alprazolam] 0.5 mg PO TID MDD ANXIETY 04/04/20 [History] ALPRAZolam [Alprazolam] 1 mg PO DAILY 04/04/20 [History] Albuterol Sulfate [Albuterol Sulfate Hfa] 1 puff PO TID PRN 04/04/20 [History] Albuterol/Ipratropium [DuoNeb 3.0-0.5 MG/3 ML] 3 ml NEB QID PRN 04/04/20 [History] Baclofen 10 mg PO BID PRN 04/04/20 [History] Biotin 5,000 mcg PO BID 04/04/20 [History] Budesonide/Formoterol [Symbicort 80-4.5 MCG] 2 puff PO BID 04/04/20 [History] Calcium Citrate/Vitamin D3 [Calcium Cit 315-Vit D3 250 Tab] 1 tab PO BIDMEALS 04/04/20 [History] Cholecalciferol (Vitamin D3) [Vitamin D3] 1,000 unit PO DAILY 04/04/20 [History] Diclofenac Sodium [Voltaren 1% Gel] 2 g TOP BID 04/04/20 [History] Diltiazem HCl [Diltiazem 24Hr ER] 120 mg PO BEDTIME 04/04/20 [History] Docusate Sodium/Sennosides [Senna Plus] 1 tab PO BID PRN 04/04/20 [History] Famotidine 20 mg PO BID 04/04/20 [History] Gabapentin [Neurontin] 600 mg PO TID 04/04/20 [History] Linaclotide [Linzess] 145 mcg PO DAILY 04/04/20 [History] Loratadine 10 mg PO DAILY 04/04/20 [History] Magnesium Amino Acid Chelate [Magnesium] 100 mg PO DAILY 04/04/20 [History] Multivitamin 1 tab PO DAILY 04/04/20 [History] OXcarbazepine [Oxcarbazepine] 600 mg PO BEDTIME 04/04/20 [History] Ondansetron [Zofran ODT] 4 mg PO Q6H PRN 04/04/20 [History] Potassium Chloride [Klor-Con 10] 10 meq PO BID 04/04/20 [History] QUEtiapine Fumarate [Quetiapine Fumarate ER] 200 mg PO BEDTIME 04/04/20 [History] busPIRone HCl [busPIRone] 30 mg PO BID 04/04/20 [History] Acetaminophen [Tylenol] 650 mg PO Q4H PRN tablet 05/18/20 [Rx] FLUoxetine HCl [Prozac] 40 mg PO DAILY 20 Days #60 cap 05/18/20 [Rx] Lidocaine 5% [Lidoderm 5%] 1,400 mg TOP DAILY 30 Days #60 patch 05/18/20 [Rx] Nystatin [Nystop] 0 gm TOP BID 30 Days #1 bottle 05/18/20 [Rx] busPIRone [Buspar] 30 mg PO BID 30 Days #60 tablet 05/18/20 [Rx] haloperidoL [Haldol] 2 mg PO Q6H PRN 14 Days #14 tab 05/18/20 [Rx] Past Medical History Cardiovascular History: Reports: Blood Clots/VTE/DVT, Hypertension Respiratory History: Reports: Asthma, Bronchitis, Recurrent, COPD, PE, Sleep Apnea Other Respiratory History: Does not use CPAP/bipap. no o2 use as stated Gastrointestinal History: Reports: Cholelithiasis, Chronic Constipation, GERD WET FINISHER History: Reports: Endometrial Ablation, Endometriosis, Other WET FINISHER History: [id number] Musculoskeletal History: Reports: Arthritis, Back Pain, Chronic, Fracture, Fibromyalgia, Neck Pain, Chronic, Osteoarthritis, Other (See Below) Other Musculoskeletal History: Hx bilat wrist fx, fx arm, DJD, R ankle fx Neurological History: Reports: Migraines Psychiatric History: Reports: Anxiety, Bipolar, Depression, PTSD, Schizophrenia, Suicidal Ideation, Other (See Below) Other Psychiatric History: borderline personality disorder, hx cutting Endocrine/Metabolic History: Reports: Obesity/BMI 30+ Hematologic History: Reports: Blood Transfusion(s) - Infectious Disease History Infectious Disease History: Reports: Chicken Pox, Measles, Mumps, Shingles - Past Surgical History HEENT Surgical History: Reports: Oral Surgery GI Surgical History: Reports: Bariatric Procedure, Cholecystectomy, Colonoscopy, EGD Other GI Surgeries/Procedures: gastric sleeve 2013 Female Surgical History: Reports: Section Other Female Surgeries/Procedures: CS x 1 Musculoskeletal Surgical History: Reports: Knee Replacement, ORIF Other Musculoskeletal Surgeries/Procedures:: bilat partial knee replacements, R ankle surgery Social & Family History - Family History Family Medical History: Noncontributory - Caffeine Use Caffeine Use: Reports: Coffee, Soda ED ROS GENERAL - Review of Systems Review Of Systems: See Below Constitutional: Reports: No Symptoms HEENT: Reports: No Symptoms Respiratory: Reports: Shortness of Breath, Cough Cardiovascular: Reports: No Symptoms Endocrine: Reports: No Symptoms GI/Abdominal: Reports: No Symptoms : Reports: No Symptoms Musculoskeletal: Reports: No Symptoms Skin: Reports: No Symptoms Neurological: Reports: No Symptoms Psychiatric: Reports: No Symptoms Immunologic: Reports: No Symptoms ED EXAM, GENERAL - Physical Exam Exam: See Below Exam Limited By: No Limitations General Appearance: Alert, No Apparent Distress Eye Exam: Bilateral Eye: PERRL Ears: Normal External Exam, Normal Canal Nose: Normal Inspection, Normal Mucosa Throat/Mouth: Normal Inspection, Normal Lips, Normal Teeth Head: Atraumatic, Normocephalic Neck: Normal Inspection, Supple, Non-Tender, Full Range of Motion Respiratory/Chest: Chest Non-Tender, Respiratory Distress, Decreased Breath Sounds, Rales Cardiovascular: Normal Peripheral Pulses, Regular Rate, Rhythm, No Edema, No Gallop GI/Abdominal: Normal Bowel Sounds, Soft, Non-Tender, No Organomegaly Back Exam: Normal Inspection, Full Range of Motion Course - Vital Signs Text/Narrative:: Labs/CXR was discussed with patient Decadron 10 mg IV x1 Ativan 1 mg IV x1 - Orders/Labs/Meds Orders: Active Orders 24 hr Category Date Time Status Sodium Chloride 0.9% [Saline Flush] Med 06/06/20 17:42 Active 10 ml FLUSH ASDIRECTED PRN Saline Lock Insert [OM.PC] Routine Oth 06/06/20 17:42 Ordered Medication Orders Sodium Chloride (Saline Flush) 10 ml FLUSH ASDIRECTED PRN PRN Reason: Keep Vein Open Last Admin: 06/06/20 17:57 Dose: 10 ml Documented by: [email or web address] Labs: Laboratory Tests 06/06/20 06/06/20 06/06/20 Range/Units 17:45 17:45 17:45 WBC 3.9 L (4.5-12.0) X10-3/uL RBC 4.53 (3.23-5.20) x10(6)uL Hgb 13.4 (11.5-15.5) g/dL Hct 39.4 (30.0-51.3) % MCV 87.0 (80-96) fL MCH 29.5 (27.7-33.6) pg MCHC 34.0 (32.2-35.4) g/dL RDW 12.5 (11.5-15.5) % Plt Count 142 (125-369) X10(3)uL MPV 7.5 (7.4-10.4) fL Neut % (Auto) 76.2 (46-82) % Lymph % (Auto) 14.6 (13-37) % Knott % (Auto) 8.8 (4-12) % Eos % (Auto) 0 L (1.0-5.0) % Baso % (Auto) 0 (0-2) % Neut # (Auto) 3.0 (1.6-8.3) # Lymph # (Auto) 0.6 (0.6-5.0) # Knott # (Auto) 0.3 (0.0-1.3) # Eos # (Auto) 0.0 (0.0-0.8) # Baso # (Auto) 0.0 (0.0-0.2) # POC VBG pH (7.32-7.43) pH Units POC VBG pCO2 (41-51) mmHg POC VBG HCO3 (21-29) mmol/L VBG Base Excess (-2-3) mmol/L O2 Delivery Device Sodium 139 (135-145) mmol/L Potassium 3.3 L (3.5-5.3) mmol/L Chloride 101 (100-110) mmol/L Carbon Dioxide 28 (21-32) mmol/L BUN 7 (7-18) mg/dL Creatinine 0.9 (0.55-1.02) mg/dL Est Cr Clr Drug Dosing TNP Estimated GFR (MDRD) > 60 (>60) BUN/Creatinine Ratio 7.8 L (9-20) Glucose 180 H D (80-116) mg/dL Calcium 7.8 L (8.6-10.2) mg/dL Total Bilirubin 0.5 (0.1-1.3) mg/dL AST 60 H D (5-25) IU/L ALT 57 H D (12-36) U/L Alkaline Phosphatase 68 (56-112) IU/L Troponin I 10.6 (4.0-60.3) pg/mL C-Reactive Protein 17.7 H* (0.5-0.9) mg/dL NT-Pro-B Natriuret Pep 269 H (<=125) pg/mL Total Protein 6.6 (6.0-8.0) g/dL Albumin 2.7 L (3.5-5.2) g/dL Globulin 3.9 g/dL Albumin/Globulin Ratio 0.7 06/06/20 Range/Units 17:45 WBC (4.5-12.0) X10-3/uL RBC (3.23-5.20) x10(6)uL Hgb (11.5-15.5) g/dL Hct (30.0-51.3) % MCV (80-96) fL MCH (27.7-33.6) pg MCHC (32.2-35.4) g/dL RDW (11.5-15.5) % Plt Count (125-369) X10(3)uL MPV (7.4-10.4) fL Neut % (Auto) (46-82) % Lymph % (Auto) (13-37) % Knott % (Auto) (4-12) % Eos % (Auto) (1.0-5.0) % Baso % (Auto) (0-2) % Neut # (Auto) (1.6-8.3) # Lymph # (Auto) (0.6-5.0) # Knott # (Auto) (0.0-1.3) # Eos # (Auto) (0.0-0.8) # Baso # (Auto) (0.0-0.2) # POC VBG pH 7.40 (7.32-7.43) pH Units POC VBG pCO2 43 (41-51) mmHg POC VBG HCO3 27 (21-29) mmol/L VBG Base Excess 2 (-2-3) mmol/L O2 Delivery Device Room air Sodium (135-145) mmol/L Potassium (3.5-5.3) mmol/L Chloride (100-110) mmol/L Carbon Dioxide (21-32) mmol/L BUN (7-18) mg/dL Creatinine (0.55-1.02) mg/dL Est Cr Clr Drug Dosing Estimated GFR (MDRD) (>60) BUN/Creatinine Ratio (9-20) Glucose (80-116) mg/dL Calcium (8.6-10.2) mg/dL Total Bilirubin (0.1-1.3) mg/dL AST (5-25) IU/L ALT (12-36) U/L Alkaline Phosphatase (56-112) IU/L Troponin I (4.0-60.3) pg/mL C-Reactive Protein (0.5-0.9) mg/dL NT-Pro-B Natriuret Pep (<=125) pg/mL Total Protein (6.0-8.0) g/dL Albumin (3.5-5.2) g/dL Globulin g/dL Albumin/Globulin Ratio Meds: Medications Generic Name Dose Route Start Last Admin Trade Name Frepedro luis PRN Reason Stop Dose Admin Sodium Chloride 10 ml 06/06/20 17:42 06/06/20 17:57 Saline Flush FLUSH 10 ml ASDIRECTED PRN Administration Keep Vein Open Discontinued Medications Generic Name Dose Route Start Last Admin Trade Name Nicolasa PRN Reason Stop Dose Admin Dexamethasone 6 mg 06/06/20 17:59 Decadron IVPUSH 06/06/20 18:00 ONETIME ONE Dexamethasone Confirm 06/06/20 18:06 06/06/20 18:22 Dexamethasone Administered 06/06/20 18:07 Not Given Dose 20 mg .ROUTE .STK-MED ONE Dexamethasone 10 mg 06/06/20 18:09 06/06/20 18:10 Dexamethasone IVPUSH 06/06/20 18:10 10 mg ONETIME ONE Administration Lorazepam 1 mg 06/06/20 18:25 Ativan IVPUSH 06/06/20 18:26 ONETIME ONE Lorazepam Confirm 06/06/20 18:26 Ativan Administered 06/06/20 18:27 Dose 2 mg .ROUTE .STK-MED ONE Morphine Sulfate 4 mg 06/06/20 17:59 Morphine IVPUSH 06/06/20 18:00 ONETIME ONE Ondansetron HCl 8 mg 06/06/20 18:12 06/06/20 18:15 Zofran IVPUSH 06/06/20 18:13 8 mg ONETIME ONE Administration Ondansetron HCl Confirm 06/06/20 18:13 06/06/20 18:22 Zofran Administered 06/06/20 18:14 Not Given Dose 4 mg .ROUTE .STK-MED ONE Departure - Departure Time of Disposition: 18:30 Disposition: Home, Self-Care 01 Condition: Good Clinical Impression: COVID-19, Hypoxemia - Discharge Information Referrals: Karo Arguello NP [Primary Care Provider] - - My Orders Last 24 Hours: My Active Orders 06/06/20 17:42 Sodium Chloride 0.9% [Saline Flush] 10 ml FLUSH ASDIRECTED PRN Saline Lock Insert [OM.PC] Routine - Assessment/Plan Last 24 Hours: My Active Orders 06/06/20 17:42 Sodium Chloride 0.9% [Saline Flush] 10 ml FLUSH ASDIRECTED PRN Saline Lock Insert [OM.PC] Routine
[2020-06-06] MEDS ORDERED: hydrALAZINE 20 MG/ML SDV IVPUSH ONE (19:04)
== END 2020-06-06 19:33 ==
LOC: FB.ED 17:27
DX: U07.1 COVID-19 (principal); I10 Essential (primary) hypertension; J44.9 Chronic obstructive pulmonary disease, unspecified; R09.02 Hypoxemia; F31.9 Bipolar disorder, unspecified; F41.9 Anxiety disorder, unspecified; E66.9 Obesity, unspecified; Z88.6 Allergy status to analgesic agent; Z88.5 Allergy status to narcotic agent; Z88.0 Allergy status to penicillin; Z88.8 Allergy status to other drugs, medicaments and biological substances; Z79.899 Other long term (current) drug therapy; Z79.01 Long term (current) use of anticoagulants; Z86.718 Personal history of other venous thrombosis and embolism
CPT/HCPCS: 36415; 71045; 80053; 83880; 84484; 85025; 86140; 94660; 96374; 96375; 99285; J0360; J1100; J2060; J2405; 99284